=== PATIENT | male | born 1970 | race African-American/Black ===

== ENCOUNTER 2017-10-17 23:24 | Inpatient (IN) | payer MEDICARE ==
[~2017-10-17] VITALS: Ht 172.7 cm; Wt 114.4 kg
[~2017-10-17 23:24] MED LIST: ALBUTEROL SULFATE; ALPR1TAB2 PO; ASA; ASPI-84 PO; AVALIDE; BISM262T13 PO; BPR100T PO; BUPR150T6 PO; DEXL60CA PO; ESZO3TAB30 PO; EZET10TA5 PO; EZET1TAB44 PO; FLUO40CA PO; FLUP10TA PO; FLUPHENAZINE; IRBE1TAB17 PO; LAMICTAL; LAMO100T69 PO; LAMO150T3 PO; METO50TA2 PO; METR500T PO; MNTL10T PO; MTF500T PO; PARO37.512 PO; PAXIL CR; PROP10TA8 PO; PRX10T PO; RANI-10 PO; RANITIDINE; RT-ALBUINH IH; SIMV40TA2 PO; SIMV40TA4 PO; SINGULAIR; TERB250T42 PO; TETR500C2 PO; TMSL.4C PO; TRAM-21 PO; TRIH2TAB2 PO; TRIHEXYPHENIDYL; VARE1TAB17 PO; VYTORIN; WELLBUTRIN XL; ZIPR60CA6 PO; ZLP10T PO; [UNRECOGNIZED DRUG - OTHER]; [UNRECOGNIZED DRUG - OTHER] PO
--- OUTSIDE RECORDS SUMMARY | 2017-10-17 23:29 | XMS REPORT ---
Author LAURA Fuentes Organization [employer] Address Unknown Phone Unavailable Care Team Providers Care Constitutional Law Professor Name Role Phone LAURA GAMA CP Unavailable Allergies No Known Allergies Problems Problem Type Condition ICD-9 Code Onset Dates Condition Status Problem Chronic airway obstruction, not elsewhere classified 496 Active Problem Nondependent tobacco use disorder 305.1 Active Problem Gross hematuria 599.71 Active Problem 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 Problem Shortness of breath 786.05 Active Problem Diabetes mellitus without complication 250.00 Active Problem Hyposmolality and/or hyponatremia 276.1 Active Problem Hematuria, unspecified 599.70 Active Problem Hernia of unspecified site of abdominal cavity without mention of obstruction or gangrene 553.9 Active Problem Generalized anxiety disorder 300.02 Active Problem Pain in joint, ankle and foot 719.47 Active Problem Pain in joint, upper arm 719.42 Active Problem Nocturnal enuresis 788.36 Active Problem Dermatophytosis of nail 110.1 Active Problem Pain in soft tissues of limb 729.5 Active Medications Medication Code System Code Instructions Start Date End Date Status Dosage Xanax [facility] [address]-07 1 MG Orally Three times a day November 08, 2014 take 1/2 tab q am, 1 tab q afternoon, 1/2 tab q evening Results No Known Results Summary Purpose [employer]ClinicalWorks Submission
--- OUTSIDE RECORDS SUMMARY | 2017-10-17 23:29 | XMS REPORT ---
Author Author LAURA GAMA Organization [facility] Address [address] [place] [address] Care Team Providers Care Business Objects Name Role Phone LANETTE LAURA Unavailable PROBLEMS Type Condition ICD9-CM Code EXD94-CO Code Onset Dates Condition Status SNOMED Code Problem Generalized anxiety disorder F41.1 Active 56930314 Problem Major depressive disorder, recurrent, moderate F33.1 Active 330918249 Problem Major depressive disorder, recurrent, unspecified F33.9 Active 86841016 Problem Diabetes type 2, controlled E11.9 Active 28722569 Problem Bipolar affective disorder F31.9 Active 23040500 Problem Paranoid schizophrenia F20.0 Active 46098144 Problem Tardive dyskinesia G24.01 Active 911230789 Problem Non morbid obesity due to excess calories E66.09 Active 092272148 Problem housekeeping lead current use of insulin Z79.4 Active 213529238 Problem Schizoaffective disorder F25.9 Active 54261882 Problem Type 2 diabetes mellitus without complications E11.9 Active 992625536 Problem Hypertension, benign I10 Active 15341670 ALLERGIES No Information SOCIAL HISTORY Never Assessed PLAN OF CARE VITAL SIGNS MEDICATIONS Medication Instructions Dosage Frequency Start Date End Date Duration Status Amlodipine Besylate 5 mg Orally Once a day 1 tablet 24h Jan, 30 day(s) Active RESULTS No Results PROCEDURES No Known procedures IMMUNIZATIONS No Known Immunizations MEDICAL (GENERAL) HISTORY Type Description Date Medical History hypertension Medical History type II diabetes Medical History Arthritis Medical History depression Medical History hyperlipidemia Medical History schizoaffective disorder Medical History anxiety Medical History chronic obstructive pulmonary disease (COPD) Medical History erectile dysfunction Medical History upper gastrointestinal bleed Surgical History arthroscopic knee surgery x2 2003 Surgical History left wrist 2001 Hospitalization History AMS & fever, MRI showed small vessel ischemia, CXR showed multiple rib deformities 09/01/2011 Hospitalization History inpatient psych treatment for SI early
--- OUTSIDE RECORDS SUMMARY | 2017-10-17 23:30 | XMS REPORT ---
Author Author JARED SHOEMAKER Organization [employer] Address Unknown Phone Unavailable Care Team Providers Care Group Tester Name Role Phone JARED SHOEMAKER CP Unavailable Allergies No Known Allergies Problems Problem Type Condition Code Onset Dates Condition Status Problem Hematuria, unspecified 599.70 Active Problem Generalized anxiety disorder 300.02 Active Problem Hyposmolality and/or hyponatremia 276.1 Active Problem Paranoid schizophrenia F20.0 Active Problem Diabetes type 2, controlled E11.9 Active Problem Bipolar affective disorder F31.9 Active Problem Shortness of breath 786.05 Active Problem Hernia of unspecified site of abdominal cavity without mention of obstruction or gangrene 553.9 Active Problem Diabetes mellitus without complication 250.00 Active Problem 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 Problem Dermatophytosis of nail 110.1 Active Problem Pain in joint, ankle and foot 719.47 Active Problem Pain in soft tissues of limb 729.5 Active Problem Chronic airway obstruction, not elsewhere classified 496 Active Problem Pain in joint, upper arm 719.42 Active Problem Gross hematuria 599.71 Active Problem Nocturnal enuresis 788.36 Active Problem Nondependent tobacco use disorder 305.1 Active Medications Medication Code System Code Instructions Start Date End Date Status Dosage Xanax [facility] [address]-64 1 MG Orally 1 tablet in am, 1 tablet in afternoon, 1 /2 tablet at bedtime Jul 07, 2015 as directed Results No Known Results Summary Purpose eClinicalWorks Submission
--- OUTSIDE RECORDS SUMMARY | 2017-10-17 23:30 | XMS REPORT ---
Author Author JARED SHOEMAKER [facility] e[employer] Address Unknown Phone Unavailable Care Team Providers Care Oil Distributor Name Role Phone JARED SHOEMAKER CP Unavailable Allergies No Known Allergies Problems Problem Type Condition Code Onset Dates Condition Status Assessment Schizoaffective disorder F25.9 Active Problem Hernia of unspecified site of abdominal cavity without mention of obstruction or gangrene 553.9 Active Assessment Generalized anxiety disorder F41.1 Active Problem Shortness of breath 786.05 Active Assessment Major depressive disorder, recurrent, unspecified F33.9 Active Problem 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 Problem Diabetes type 2, controlled E11.9 Active Problem Diabetes mellitus without complication 250.00 Active Problem Generalized anxiety disorder F41.1 Active Problem Schizoaffective disorder F25.9 Active Problem Pain in joint, upper arm 719.42 Active Problem Pain in joint, ankle and foot 719.47 Active Problem Major depressive disorder, recurrent, unspecified F33.9 Active Problem Dermatophytosis of nail 110.1 Active Problem Bipolar affective disorder F31.9 Active Problem Paranoid schizophrenia F20.0 Active Problem Type 2 diabetes mellitus without complications E11.9 Active Problem Diabetes type 2, uncontrolled E11.65 Active Problem Chronic airway obstruction, not elsewhere classified 496 Active Problem Gross hematuria 599.71 Active Problem Nocturnal enuresis 788.36 Active Problem Pain in soft tissues of limb 729.5 Active Problem Hyposmolality and/or hyponatremia 276.1 Active Problem Generalized anxiety disorder 300.02 Active Problem Nondependent tobacco use disorder 305.1 Active Problem Hematuria, unspecified 599.70 Active Medications Medication Code System Code Instructions Start Date End Date Status Dosage Benadryl [facility] [address]-98 25 MG Orally every 6 hrs 1 tablet as needed Tylenol [facility] [address]-97 325 MG Orally every 6 hrs 1 tablet as needed Zocor [facility] 17171060515 40 TAKE ONE TABLET BY MOUTH DAILY WITH ZETIA Singulair [facility] 35473279283 10 TAKE ONE TABLET BY MOUTH EVERY EVENING Breo Ellipta [facility] [address]-24 100-25 MCG/INH Inhalation Once a day Mar 1 puff Doxepin HCl [facility] [address]-07 75 MG Orally Once a day Jun 26, 2016 1 capsule at bedtime Xanax [facility] [address]-92 1 MG Orally one tablet in morning one tablet in afternoon and 0.5 tablet at bedtime 1 tablet Trihexyphenidyl HCl [facility] [address]-11 2 MG Orally 2 times a day 1 tablet Ranitidine HCl [facility] [address]-60 150 MG Orally PRN 1 capsule Albuterol Sulfate HFA [facility] [address]-07 108 (90 Base) MCG/ACT Inhalation every 4 hrs 2 puffs as needed Geodon [facility] [address]-98 40 MG Orally once a day May 08, 2016 1 capsule with food Metoprolol Tartrate [facility] 90838719105 50 TAKE ONE TABLET BY MOUTH TWICE A DAY Metformin HCl [facility] [address]-67 1,000 TAKE ONE TABLET BY MOUTH TWICE A DAY WITH MEALS Lantus SoloStar [facility] 97351119113 100 unit/mL INJECT 44 UNITS UNDER THE SKIN ONCE DAILY Lamictal [facility] [address]-27 100 MG Orally Once a day 3 tablets Geodon [facility] [address]-78 80 MG Orally Twice a day Oct 12, 2014 1 capsule with food Zetia [facility] 53276918564 10 TAKE ONE TABLET BY MOUTH DAILY Flomax [facility] 82140391889 0.4 TAKE TWO CAPSULES BY MOUTH DAILY Diovan [facility] 41964676721 320 TAKE ONE TABLET BY MOUTH DAILY Tums [facility] [address]-91 500 MG Orally Four times a day PRN 1 tablet Glucometer [facility] 0 1 2 times a day, with strips and lancets Apr 25, 2016 test blood sugar Prozac [facility] [address]-13 40 MG Orally Once a day Aug 26, 2014 1 capsule in the morning Vital Signs Date/Time: Jun 26, 2016 Cardiac Monitoring Heart Rate 76 bpm Weight 258.0 lbs Height 69 in BMI 38.10 Index Blood Pressure Diastolic 92 mmHg Blood Pressure Systolic 140 mmHg Results No Known Results Summary Purpose eClinicalWorks Submission
--- OUTSIDE RECORDS SUMMARY | 2017-10-17 23:30 | XMS REPORT ---
Author Author JARED SHOEMAKER Organization [employer] Address Unknown Phone Unavailable Care Team Providers Care Wire Weaver Name Role Phone JARED SHOEMAKER CP Unavailable Allergies No Known Allergies Problems Problem Type Condition Code Onset Dates Condition Status Problem Hyposmolality and/or hyponatremia 276.1 Active Problem Hernia of unspecified site of abdominal cavity without mention of obstruction or gangrene 553.9 Active Problem Generalized anxiety disorder 300.02 Active Problem Bipolar affective disorder F31.9 Active Problem Paranoid schizophrenia F20.0 Active Problem Diabetes type 2, uncontrolled E11.65 Active Problem 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 Problem Shortness of breath 786.05 Active Problem Diabetes type 2, controlled E11.9 Active Problem Diabetes mellitus without complication 250.00 Active Problem Pain in joint, ankle and foot 719.47 Active Problem Pain in joint, upper arm 719.42 Active Problem Dermatophytosis of nail 110.1 Active Problem Chronic airway obstruction, not elsewhere classified 496 Active Problem Gross hematuria 599.71 Active Problem Nocturnal enuresis 788.36 Active Problem Nondependent tobacco use disorder 305.1 Active Problem Pain in soft tissues of limb 729.5 Active Problem Hematuria, unspecified 599.70 Active Medications Medication Code System Code Instructions Start Date End Date Status Dosage Xanax [facility] [address]-41 1 MG Orally TAKE ONE TABLET BY MOUTH EVERY MORNING , 1 IN THE AFTERNOON AND 1/2 AT BEDTIME Results No Known Results Summary Purpose eClinicalWorks Submission
--- OUTSIDE RECORDS SUMMARY | 2017-10-17 23:30 | XMS REPORT ---
Author Author JARED SHOEMAKER [facility] e[employer] Address Unknown Phone Unavailable Care Team Providers Care Novelty Printing Machine Operator Name Role Phone JARED SHOEMAKER CP Unavailable Allergies, Adverse Reactions, Alerts Substance Reaction Event Type N.K.D.A. Info Not Available Non Drug Allergy Problems Problem Type Condition Code Onset Dates Condition Status Problem Hematuria, unspecified 599.70 Active Problem Generalized anxiety disorder 300.02 Active Problem Hyposmolality and/or hyponatremia 276.1 Active Problem Paranoid schizophrenia F20.0 Active Assessment Schizoaffective disorder F25.9 Active Problem Diabetes type 2, controlled E11.9 [...] in joint, ankle and foot 719.47 Active Assessment Generalized anxiety disorder F41.1 Active Assessment Major depressive disorder, recurrent, unspecified F33.9 Active Problem Pain in soft tissues of limb 729.5 Active Problem Chronic airway obstruction, not elsewhere classified 496 Active Problem Pain in joint, upper arm 719.42 Active Problem Gross hematuria 599.71 Active Problem Nocturnal enuresis 788.36 Active Problem Nondependent tobacco use disorder 305.1 Active Medications Medication Code System Code Instructions Start Date End Date Status Dosage Prozac [facility] [address]-78 40 MG Orally Once a day Aug 26, 2014 1 capsule in the morning Trihexyphenidyl HCl [facility] [address]-70 2 MG Orally 2 times a day 1 tablet Geodon [facility] [address]-34 80 MG Orally Twice a day Oct 12, 2014 1 capsule with food Xanax [facility] [address]-89 1 MG Orally 1 tablet in am, 1 tablet in afternoon, 1 /2 tablet at bedtime Jul 07, 2015 as directed Doxepin HCl [facility] [address]-12 50 MG Orally Once a day Jul 07, 2015 1 capsule at bedtime Ranitidine HCl [facility] [address]-89 150 MG Orally PRN 1 capsule Zocor [facility] 59275432867 40 TAKE ONE TABLET BY MOUTH DAILY WITH ZETIA Zetia [facility] 58930618746 10 TAKE ONE TABLET BY MOUTH DAILY Ventolin HFA [facility] 14479926333 90 INHALE TWO PUFFS BY MOUTH EVERY 6 HOURS NEEDED FOR COUGH/WHEEZING Tums [facility] [address]-07 500 MG Orally Four times a day PRN 1 tablet Metoprolol Tartrate [facility] 81879574552 50 TAKE ONE TABLET BY MOUTH TWICE A DAY Benadryl [facility] [address]-75 25 MG Orally every 6 hrs 1 tablet as needed Diovan [facility] [address]-71 320 MG Orally Once a day 1 tablet Albuterol Sulfate HFA [facility] [address]-34 108 (90 Base) MCG/ACT Inhalation every 4 hrs 2 puffs as needed Lamictal [facility] [address]-65 100 MG Orally Once a day 3 tablets Victoza [facility] [address]-10 18 MG/3ML Subcutaneous Once a day Jul 03, 2015 1.2mg Singulair [facility] 55752829731 10 TAKE ONE TABLET BY MOUTH EVERY EVENING Tylenol [facility] [address]-19 325 MG Orally every 6 hrs 1 tablet as needed Symbicort [facility] [address]-58 160-4.5 MCG/ACT Inhalation Twice a day Jul 03, 2015 2 puffs OneTouch Ultra Test [facility] 0 Blood Glucose , 2 times a day TEST BLOOD SUGAR Flomax [facility] 72422166895 0.4 TAKE TWO CAPSULES BY MOUTH DAILY Procedures Procedure Coding System Code Date Office Visit, Est Pt., Level 3 CPT-4 76188 Sep 06, 2015 [facility] VISIT ESTABLISHED PATIENT CPT-4 G0467 Sep 06, 2015 Vital Signs Date/Time: Sep 06, 2015 Cardiac Monitoring Heart Rate 92 bpm Weight 245.6 lbs Height 69 in BMI 36.26 Index Blood Pressure Diastolic 74 mmHg Blood Pressure Systolic 120 mmHg Results No Known Results Summary Purpose eClinicalWorks Submission
--- OUTSIDE RECORDS SUMMARY | 2017-10-17 23:30 | XMS REPORT ---
Author Author EDMUND NEWBY [facility] [place] eClinicalWorks Address Unknown Phone Unavailable Care Team Providers Care Investment Specialist Name Role Phone EDMUND NEWBY Unavailable Allergies No Known Allergies Problems Problem [...] joint, ankle and foot 719.47 Active Assessment Paranoid schizophrenia F20.0 Active Assessment Bipolar affective disorder F31.9 Active Problem Pain in soft tissues of limb 729.5 Active Problem Chronic airway obstruction, not elsewhere classified 496 Active Problem Pain in joint, upper arm 719.42 Active Problem Gross hematuria 599.71 Active Problem Nocturnal enuresis 788.36 Active Problem Nondependent tobacco use disorder 305.1 Active Medications Medication Code System Code Instructions Start Date End Date Status Dosage Trihexyphenidyl HCl [facility] [address]-73 2 MG Orally 2 times a day 1 tablet Victoza [facility] [address]-78 18 MG/3ML Subcutaneous Once a day Jul 03, 2015 1.2mg Ventolin HFA [facility] 98690316019 90 INHALE TWO PUFFS BY MOUTH EVERY 6 HOURS NEEDED FOR COUGH/WHEEZING Singulair [facility] 17487238656 10 TAKE ONE TABLET BY MOUTH EVERY EVENING Zocor [facility] 59765951669 40 TAKE ONE TABLET BY MOUTH DAILY WITH ZETIA Benadryl [facility] [address]-53 25 MG Orally every 6 hrs 1 tablet as needed Diovan [facility] [address]-22 320 MG Orally Once a day 1 tablet Lamictal [facility] [address]-59 100 MG Orally Once a day 3 tablets Doxepin HCl [facility] [address]-91 50 MG Orally Once a day Jul 07, 2015 1 capsule at bedtime Flomax [facility] 70299171305 0.4 TAKE TWO CAPSULES BY MOUTH DAILY Geodon [facility] [address]-53 80 MG Orally Twice a day Oct 12, 2014 1 capsule with food Tylenol [facility] [address]-86 325 MG Orally every 6 hrs 1 tablet as needed Albuterol Sulfate HFA [facility] [address]-72 108 (90 Base) MCG/ACT Inhalation every 4 hrs 2 puffs as needed Zetia [facility] 16489708415 10 TAKE ONE TABLET BY MOUTH DAILY Symbicort [facility] [address]-81 160-4.5 MCG/ACT Inhalation Twice a day Jul 03, 2015 2 puffs Xanax [facility] [address]-12 1 MG Orally 1 tablet in am, 1 tablet in afternoon, 1 /2 tablet at bedtime Jul 07, 2015 as directed Tums [facility] [address]-37 500 MG Orally Four times a day PRN 1 tablet Prozac [facility] [address]-78 40 MG Orally Once a day Aug 26, 2014 1 capsule in the morning Metoprolol Tartrate [facility] 14003419859 50 TAKE ONE TABLET BY MOUTH TWICE A DAY OneTouch Ultra Test [facility] 0 Blood Glucose , 2 times a day TEST BLOOD SUGAR Ranitidine HCl [facility] [address]-38 150 MG Orally PRN 1 capsule Procedures Procedure Coding System Code Date Psych diagnostic evaluation, established patient CPT-4 78961 Aug 14, 2015 [facility] VISIT MENTAL HEALTH ESTAB PT CPT-4 G0470 Aug 14, 2015 Results No Known Results Summary Purpose eClinicalWorks Submission
--- OUTSIDE RECORDS SUMMARY | 2017-10-17 23:30 | XMS REPORT ---
Author Author JARED Boone Organization [facility] Address Unknown Care Team Providers Care Staple Cutter Name Role Phone JARED Boone Unavailable PROBLEMS Type Condition ICD9-CM Code JPD25-OG Code Onset Dates Condition Status SNOMED Code Problem Generalized anxiety disorder F41.1 Active 06078815 Problem Major depressive disorder, recurrent, moderate F33.1 Active 666535312 Problem Major depressive disorder, recurrent, unspecified F33.9 Active 75450415 Problem Diabetes type 2, controlled E11.9 Active 65365707 Problem Bipolar affective disorder F31.9 Active 27439104 Problem Paranoid schizophrenia F20.0 Active 17113038 Problem Tardive dyskinesia G24.01 Active 374564712 Problem Non morbid obesity due to excess calories E66.09 Active 184436764 Problem penitentiary current use of insulin Z79.4 Active 049701192 Problem Schizoaffective disorder F25.9 Active 74546466 Problem Type 2 diabetes mellitus without complications E11.9 Active 939502527 Problem Hypertension, benign I10 Active 64837961 ALLERGIES No Known Allergies SOCIAL HISTORY Never Assessed PLAN OF CARE Activity Details Follow Up 3 Months Reason: VITAL SIGNS Height 69 in 2016-10-30 Weight 259.6 lbs 2016-10-30 Heart Rate 68 bpm 2016-10-30 Respiratory Rate 20 2016-10-30 BMI 38.33 kg/m2 2016-10-30 Blood pressure systolic 132 mmHg 2016-10-30 Blood pressure diastolic 93 mmHg 2016-10-30 MEDICATIONS Medication Instructions Dosage Frequency Start Date End Date Duration Status LaMICtal XR 300 MG Orally Once a day 1 tablet 24h Oct, 30 day(s ) Active Clickfine Pen [place] 32 gauge DIRECTED WITH INSULIN PENS 50 Active Geodon 80 MG Orally once a day 2 capsule with food 24h Oct, 30 day(s) Active Doxepin HCl 75 MG Orally Once a day 1 capsule at bedtime 24h Oct, 30 day(s) Active Doxepin HCl 75 TAKE ONE CAPSULE BY MOUTH AT BEDTIME 30 Active Breo Ellipta 100-25 Inhalation Once a day 1 puff 24h 30 Active Diovan 320 Orally Once a day 1 tablet 24h 30 days Active Zetia 10 Orally Once a day 1 tablet 24h 30 days Active Nexium 40 Orally Once a day 1 capsule 24h 30 Active Cetirizine HCl 10 mg Orally Once a day 1 tablet 24h 06 Sep, 2016 Mar, 30 day(s) Active Prozac 40 MG Orally Once a day 1 capsule 24h Oct, 30 day(s) Active Flomax 0.4 Orally Once a day 2 capsules 24h 30 days Active Xanax 1 MG Orally Twice a day and 0.5 tablet at bedtime 1 tablet Oct, 30 days Active Trihexyphenidyl HCl 2 MG Orally two times a day 1 tablet with meals 12h Oct, 30 day(s) Active Metoprolol Tartrate 50 Orally Twice a day 1 tablet with food 12h 30 days Active Geodon 40 MG Orally once a day 1 capsule with food 24h Oct, 30 day(s) Active Metformin HCl 1,000 Orally 2 times a day 1 tablet with meals 12h 30 days Active RESULTS No Results PROCEDURES Procedure Date Ordered Result Body Site [facility] VISIT ESTABLISHED PATIENT October 30, 2016 IMMUNIZATIONS No Known Immunizations MEDICAL (GENERAL) HISTORY Type Description Date Medical History hypertension Medical History type II diabetes Medical History Arthritis Medical History depression Medical History hyperlipidemia Medical History schizoaffective disorder Medical History anxiety Medical History chronic obstructive pulmonary disease (COPD) Medical History erectile dysfunction Medical History upper gastrointestinal bleed Surgical History arthroscopic knee surgery x2 2002 Surgical History left wrist 2001 Hospitalization History AMS & fever, MRI showed small vessel ischemia, CXR showed multiple rib deformities 09/01/2011 Hospitalization History inpatient psych treatment for SI early
--- OUTSIDE RECORDS SUMMARY | 2017-10-17 23:30 | XMS REPORT ---
Author Author JARED SHOEMAKER Organization [employer] Address Unknown Phone Unavailable Care Team Providers Care Asbestos Cloth Inspector Name Role Phone JARED SHOEMAKER CP Unavailable Allergies No Known Allergies Problems Problem Type Condition Code Onset Dates Condition Status Problem Gross hematuria 599.71 Active Problem Hematuria, unspecified 599.70 Active Problem Nondependent tobacco use disorder 305.1 Active Problem Diabetes mellitus without complication 250.00 Active Problem 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 Problem Diabetes type 2, controlled E11.9 Active Problem Generalized anxiety disorder 300.02 Active Problem Hyposmolality and/or hyponatremia 276.1 Active Problem Shortness of breath 786.05 Active Problem Hernia of unspecified site of abdominal cavity without mention of obstruction or gangrene 553.9 Active Problem Pain in joint, upper arm 719.42 Active Problem Nocturnal enuresis 788.36 Active Problem Dermatophytosis of nail 110.1 Active Problem Pain in soft tissues of limb 729.5 Active Problem Pain in joint, ankle and foot 719.47 Active Problem Chronic airway obstruction, not elsewhere classified 496 Active Medications Medication Code System Code Instructions Start Date End Date Status Dosage Trihexyphenidyl HCl [facility] [address]-80 2 MG Orally 2 times a day 1 tablet Lamictal [facility] [address]-05 100 MG Orally Once a day 3 tablets Geodon [facility] [address]-38 80 MG Orally Twice a day Oct 12, 2014 1 capsule with food Prozac [facility] [address]-51 40 MG Orally Once a day Aug 26, 2014 1 capsule in the morning Results No Known Results Summary Purpose eClinicalWorks Submission
--- OUTSIDE RECORDS SUMMARY | 2017-10-17 23:30 | XMS REPORT ---
Author Author LAURA GAMA Organization [employer] Address Unknown Phone Unavailable Care Team Providers Care Counter Intelligence Technician Name Role Phone LAURA GAMA CP Unavailable [...] Instructions Start Date End Date Status Dosage Butch Hayesta [facility] [address]-40 100-25 MCG/INH Inhalation Once a day Mar 1 puff Results No Known Results Summary Purpose eClinicalWorks Submission
--- OUTSIDE RECORDS SUMMARY | 2017-10-17 23:30 | XMS REPORT ---
Author Author LAURA GAMA [facility] Address [address] [place] [address] Care Team Providers Care Telegraphic Instrument Supervisor Name Role Phone LAURA GAMA Unavailable PROBLEMS Type Condition ICD9-CM Code [id number] Code Onset Dates Condition Status SNOMED Code Problem Generalized anxiety disorder F41.1 Active 14492302 Problem Major depressive disorder, recurrent, moderate F33.1 Active 336119788 Problem Major depressive disorder, recurrent, unspecified F33.9 Active 76343482 Problem Diabetes type 2, controlled E11.9 Active 89749913 Problem Bipolar affective disorder F31.9 Active 43381845 Problem Paranoid schizophrenia F20.0 Active 63297731 Problem Tardive dyskinesia G24.01 Active 225265865 Problem Non morbid obesity due to excess calories E66.09 Active 156811284 Problem 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 Active 926404827 Problem Schizoaffective disorder F25.9 Active 94124886 Problem Type 2 diabetes mellitus without complications E11.9 Active 172300493 Problem Hypertension, benign I10 Active 09913066 ALLERGIES No Known Allergies SOCIAL HISTORY Never Assessed PLAN OF CARE Activity Details Follow Up 4 Weeks Reason:htn VITAL SIGNS Height 69 in 2017-01-24 Weight 262.4 lbs 2017-01-24 Temperature 98.0 degrees Fahrenheit 2017-01-24 Heart Rate 68 bpm 2017-01-24 Respiratory Rate 18 2017-01-24 BMI 38.75 kg/m2 2017-01-24 Blood pressure systolic 133 mmHg 2017-01-24 Blood pressure diastolic 100 mmHg 2017-01-24 MEDICATIONS Medication Instructions Dosage Frequency Start Date End Date Duration Status Prozac 40 MG Orally Once a day 1 capsule 24h Oct, 30 day(s) Active Zetia 10 TAKE ONE TABLET BY MOUTH DAILY 30 Active Doxepin HCl 75 MG Orally Once a day 1 capsule at bedtime 24h Oct, 30 day(s) Active Lantus SoloStar 100 unit/mL Subcutaneous 2 times a day INJECT 36 Units in the am and 50 Units in pm 12h 34 Active Geodon 40 TAKE ONE CAPSULE BY MOUTH DAILY WITH FOOD 30 Active LaMICtal XR 300 MG Orally Once a day 1 tablet 24h Oct, 30 day(s ) Active Metoprolol Tartrate 50 TAKE ONE TABLET BY MOUTH TWICE A DAY WITH FOOD 30 Active Clickfine Pen [place] 32 gauge USE WITH INSULIN PENS 50 Active Nexium 40 TAKE ONE CAPSULE BY MOUTH DAILY 30 Active Trihexyphenidyl HCl 2 MG Orally two times a day 1 tablet with meals 12h Oct, 30 day(s) Active Geodon 80 MG Orally once a day 2 capsule with food 24h Oct, 30 day(s) Active Xanax 1 MG Orally Twice a day and 0.5 tablet at bedtime 1 tablet Oct, 30 days Active Flomax 0.4 TAKE TWO CAPSULES BY MOUTH DAILY 30 Active Breo Ellipta 100-25 INHALE ONE DOSE BY MOUTH DAILY 30 Active Geodon 40 MG Orally once a day 1 capsule with food 24h Oct, 30 day(s) Active Diovan 320 mg TAKE ONE TABLET BY MOUTH DAILY 90 days Active Amlodipine Besylate 5 mg Orally Once a day 1 tablet 24h Jan, 30 day(s) Active Metformin HCl 1,000 TAKE ONE TABLET BY MOUTH TWICE A DAY WITH MEALS 30 Active Cetirizine HCl 10 mg Orally Once a day 1 tablet 24h Sep, Mar, 30 day(s) Active RESULTS No Results PROCEDURES Procedure Date Ordered Result Body Site [facility] VISIT ESTABLISHED PATIENT January 24, 2017 MARC, ROUTINE* January 24, 2017 [facility] January [facility], 2017 IMMUNIZATIONS No Known Immunizations MEDICAL (GENERAL) HISTORY [...]
--- OUTSIDE RECORDS SUMMARY | 2017-10-17 23:31 | XMS REPORT ---
Author Author LAURA GAMA Organization [employer] Address Unknown Phone Unavailable Care Team Providers Care Admitting Supervisor Name Role Phone LAURA GAMA CP Unavailable [...] of obstruction or gangrene 553.9 Active Assessment Sinusitis chronic, frontal J32.1 Active Problem Pain in joint, upper arm 719.42 Active Problem Nocturnal enuresis 788.36 Active Problem Dermatophytosis of nail 110.1 Active Problem Pain in soft tissues of limb 729.5 Active Problem Pain in joint, ankle and foot 719.47 Active Problem Chronic airway obstruction, not elsewhere classified 496 Active Medications Medication Code System Code Instructions Start Date End Date Status Dosage Victoza [facility] [address]-09 18 MG/3ML Subcutaneous Once a day Jul 03, 2015 1.2mg Symbicort [facility] [address]-91 160-4.5 MCG/ACT Inhalation Twice a day Jul 03, 2015 2 puffs Results No Known Results Summary Purpose eClinicalWorks Submission
--- OUTSIDE RECORDS SUMMARY | 2017-10-17 23:31 | XMS REPORT ---
Author Author LAURA GAMA [facility] Address [address] [place] [address] Care Team Providers Care Cement Car Dumper Name Role Phone LAURA GAMA Unavailable PROBLEMS Type Condition ICD9-CM Code [id number] Code Onset Dates Condition Status SNOMED Code Problem Paranoid schizophrenia F20.0 Active 14854557 Problem Major depressive disorder, recurrent, unspecified F33.9 Active 76744630 Problem Generalized anxiety disorder F41.1 Active 50151951 Problem Diabetes type 2, controlled E11.9 Active 30829180 Problem Bipolar affective disorder F31.9 Active 75314185 Problem Non morbid obesity due to excess calories E66.09 Active 891265344 Problem Type 2 diabetes mellitus without complications E11.9 Active 884362348 Problem Schizoaffective disorder F25.9 Active 39680353 Problem Major depressive disorder, recurrent, moderate F33.1 Active 877513219 Problem Hypertension, benign I10 Active 63530658 Problem [facility] current use of insulin Z79.4 Active 730518609 ALLERGIES No Information SOCIAL HISTORY Never Assessed PLAN OF CARE VITAL SIGNS Height 69 in 2016-09-30 Weight 264.4 lbs 2016-09-30 Temperature 97.6 degrees Fahrenheit 2016-09-30 Heart Rate 76 bpm 2016-09-30 Respiratory Rate 20 2016-09-30 BMI 39.04 kg/m2 2016-09-30 Blood pressure systolic 122 mmHg 2016-09-30 Blood pressure diastolic 86 mmHg 2016-09-30 MEDICATIONS Medication Instructions Dosage Frequency Start Date End Date Duration Status Metoprolol Tartrate 50 Orally Twice a day 1 tablet with food 12h 30 days Active Zetia 10 Orally Once a day 1 tablet 24h 30 days Active Breo Ellipta 100-25 Inhalation Once a day 1 puff 24h 30 Active Cetirizine HCl 10 mg Orally Once a day 1 tablet 24h Sep, Mar, 30 day(s) Active Flomax 0.4 Orally Once a day 2 capsules 24h 30 days Active Metformin HCl 1,000 Orally 2 times a day 1 tablet with meals 12h 30 days Active Diovan 320 Orally Once a day 1 tablet 24h 30 days Active RESULTS Name Result Date Reference Range A1C (IN HOUSE) 2016-09-30 A1C IN HOUSE 8.0 4.3 - 5.6 % Previous A1c 7.3 Lot [id number] Exp date 06/2018 PROCEDURES Procedure Date Ordered Result Body Site GLYCATED HEMOGLOBIN TEST Sep 30, 2016 [facility] VISIT ESTABLISHED PATIENT Sep 30, 2016 IMMUNIZATIONS No Known Immunizations MEDICAL [...]
--- OUTSIDE RECORDS SUMMARY | 2017-10-17 23:31 | XMS REPORT ---
Author Author LAURA GAMA [facility] Address [address] [place] [address] Care Team Providers Care Bed And Breakfast Innkeeper Name Role Phone LANETTE LAURA Unavailable PROBLEMS Type Condition ICD9-CM Code [id number] Code Onset Dates Condition Status SNOMED Code Problem Paranoid schizophrenia F20.0 Active 16127713 Problem Major depressive disorder, recurrent, unspecified F33.9 Active 40868303 Problem Generalized anxiety disorder F41.1 Active 59065932 Problem Diabetes type 2, controlled E11.9 Active 38099811 Problem Bipolar affective disorder F31.9 Active 71536666 Problem Non morbid obesity due to excess calories E66.09 Active 123139534 Problem Type 2 diabetes mellitus without complications E11.9 Active 671189705 Problem Schizoaffective disorder F25.9 Active 44536025 Problem Major depressive disorder, recurrent, moderate F33.1 Active 908505662 Problem Hypertension, benign I10 Active 45114536 Problem detention current use of insulin Z79.4 Active 105926980 ALLERGIES Substance Reaction Event Type Date Status N.K.D.A. Unknown Non Drug Allergy Aug, Unknown SOCIAL HISTORY No smoking Hx information available PLAN OF CARE Activity Details Follow Up 4 Weeks Reason:dm2 VITAL SIGNS Height 69 in 2016-08-29 Weight 262 lbs 2016-08-29 Temperature 98.3 degrees Fahrenheit 2016-08-29 Heart Rate 80 bpm 2016-08-29 Respiratory Rate 18 2016-08-29 BMI 38.69 kg/m2 2016-08-29 Blood pressure systolic 102 mmHg 2016-08-29 Blood pressure diastolic 80 mmHg 2016-08-29 MEDICATIONS Medication Instructions Dosage Frequency Start Date End Date Duration Status Trihexyphenidyl HCl 2 MG Orally 2 times a day 1 tablet 12h 30 days Active Zocor 40 TAKE ONE TABLET BY MOUTH DAILY WITH ZETIA 30 Active Trihexyphenidyl HCl 2 TAKE ONE TABLET BY MOUTH TWICE A DAY 30 Active Geodon 80 MG Orally Twice a day 1 capsule with food 12h 18 Sep, 2014 30 days Active Benadryl 25 MG Orally every 6 hrs 1 tablet as needed 6h Active Lamictal 100 MG Orally Once a day 3 tablets 24h 30 days Active Diovan 320 TAKE ONE TABLET BY MOUTH DAILY 30 Active Singulair 10 TAKE ONE TABLET BY MOUTH EVERY EVENING 30 Active Glucometer 1 test blood sugar Apr, Active Zetia 10 TAKE ONE TABLET BY MOUTH DAILY 30 Active Tylenol 325 MG Orally every 6 hrs 1 tablet as needed 6h Active Lantus SoloStar 100 unit/mL INJECT 44 UNITS UNDER THE SKIN ONCE DAILY 34 Active Breo Ellipta 100-25 Inhalation Once a day 1 puff 24h 30 Active Geodon 40 MG Orally once a day 1 capsule with food 24h Apr, 30 days Active Xanax 1 MG Orally one tablet in morning one tablet in afternoon and 0.5 tablet at bedtime 1 tablet 30 days Active Breo Ellipta 100-25 MCG/INH Inhalation Once a day 1 puff 24h Mar, Active Nexium 40 mg Orally Once a day 1 capsule 24h Jul, 30 day(s) Active Prozac 40 MG Orally Once a day 1 capsule in the morning 24h Aug, 30 days Active Doxepin HCl 75 MG Orally Once a day 1 capsule at bedtime 24h Jun, 30 day(s) Active Metoprolol Tartrate 50 TAKE ONE TABLET BY MOUTH TWICE A DAY 30 Active Flomax 0.4 TAKE TWO CAPSULES BY MOUTH DAILY 30 Active Metformin HCl 1,000 TAKE ONE TABLET BY MOUTH TWICE A DAY WITH MEALS 30 Active Albuterol Sulfate HFA 108 (90 Base) MCG/ACT Inhalation every 4 hrs 2 puffs as needed 4h Active Fluticasone Propionate 50 MCG/ACT Nasally Once a day 1 spray in each nostril 24h Jul, Active RESULTS Name Result Date Reference Range MICROALBUMIN, URINE (IN HOUSE) 2016-08-29 MICROALBUMIN Abnormal Lot # [id number] Exp date 06/2017 Clarity clear Color yellow ALB 150mg/L CRE 300mg/dl A:C (IN HOUSE) 30-300mg/g Control + Control Lot # Exp date PROCEDURES Procedure Date Ordered Related Diagnosis Body Site MICROALBUMIN, SEMIQUANT Aug 29, 2016 [facility] VISIT ESTABLISHED PATIENT Aug 29, 2016 Office Visit, Est Pt., Level 3 Aug 29, 2016 IMMUNIZATIONS No Known Immunizations
--- OUTSIDE RECORDS SUMMARY | 2017-10-17 23:31 | XMS REPORT ---
Author LAURA Fuentes Organization eClinicalWorks Address Unknown Phone Unavailable Care Team Providers Care Torch Straightener And Heater Name Role Phone LAURA GAMA CP Unavailable Allergies, Adverse Reactions, Alerts Substance Reaction Event Type N.K.D.A. Info Not Available Non Drug Allergy Problems Problem Type Condition Code Onset Dates Condition Status Problem Generalized anxiety disorder 300.02 Active Problem Shortness of breath 786.05 Active Problem Hernia of unspecified site of abdominal cavity without mention of obstruction or gangrene 553.9 Active Problem Diabetes type 2, uncontrolled E11.65 Active Assessment Type 2 diabetes mellitus without complications E11.9 Active Problem Bipolar affective disorder F31.9 Active Assessment termite helper current use of insulin Z79.4 Active Assessment Onychomycosis B35.1 Active Problem Type 2 diabetes mellitus without complications E11.9 Active Problem Diabetes mellitus without complication 250.00 Active Problem 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 Problem Paranoid schizophrenia F20.0 Active Problem Diabetes type 2, controlled E11.9 Active Problem Pain in joint, upper arm 719.42 Active Problem Nocturnal enuresis 788.36 Active Problem Dermatophytosis of nail 110.1 Active Problem Pain in joint, ankle and foot 719.47 Active Problem Gross hematuria 599.71 Active Problem Nondependent tobacco use disorder 305.1 Active Problem Pain in soft tissues of limb 729.5 Active Problem Hematuria, unspecified 599.70 Active Assessment Nail hypertrophy L60.2 Active Problem Chronic airway obstruction, not elsewhere classified 496 Active Problem Hyposmolality and/or hyponatremia 276.1 Active Medications Medication Code System Code Instructions Start Date End Date Status Dosage Singulair [facility] 51994675726 10 TAKE ONE TABLET BY MOUTH EVERY EVENING Albuterol Sulfate HFA [facility] [address]-26 108 (90 Base) MCG/ACT Inhalation every 4 hrs 2 puffs as needed Ranitidine HCl [facility] [address]-64 150 MG Orally PRN 1 capsule Trihexyphenidyl HCl [facility] [address]-11 2 MG Orally 2 times a day 1 tablet Diovan [facility] 17704094372 320 TAKE ONE TABLET BY MOUTH DAILY Metoprolol Tartrate [facility] 93741786732 50 TAKE ONE TABLET BY MOUTH TWICE A DAY Tums [facility] [address]-99 500 MG Orally Four times a day PRN 1 tablet Glucometer [facility] 0 1 2 times a day, with strips and lancets Apr 25, 2016 test blood sugar Geodon [facility] [address]-75 80 MG Orally Twice a day Oct 12, 2014 1 capsule with food Symbicort [facility] 41147202029 160-4.5 INHALE TWO PUFFS BY MOUTH TWICE A DAY Flomax [facility] 66269832307 0.4 TAKE TWO CAPSULES BY MOUTH DAILY Breo Ellipta [facility] [address]-47 100-25 MCG/INH Inhalation Once a day Mar 1 puff Lantus SoloStar [facility] 89015348964 100 unit/mL Subcutaneous Once a day 44 units Tylenol [facility] [address]-97 325 MG Orally every 6 hrs 1 tablet as needed Benadryl [facility] [address]-74 25 MG Orally every 6 hrs 1 tablet as needed Xanax [facility] [address]-46 1 MG Orally TAKE ONE TABLET BY MOUTH EVERY MORNING , 1 IN THE AFTERNOON AND 1/2 AT BEDTIME Metformin HCl [facility] 72223341529 1,000 Orally Twice a day, pc 1 tablet with meals Symbicort [facility] [address]-44 160-4.5 MCG/ACT Inhalation Twice a day Jul 03, 2015 2 puffs Ventolin HFA [facility] 59186198765 90 INHALE TWO PUFFS BY MOUTH EVERY 6 HOURS NEEDED FOR COUGH/WHEEZING Victoza [facility] [address]-48 18 MG/3ML Subcutaneous Once a day Jul 03, 2015 1.2mg Prozac [facility] [address]-76 40 MG Orally Once a day Aug 26, 2014 1 capsule in the morning Zocor [facility] 25679434624 40 TAKE ONE TABLET BY MOUTH DAILY WITH ZETIA Lamictal [facility] [address]-14 100 MG Orally Once a day 3 tablets Doxepin HCl [facility] [address]-23 50 MG Orally Once a day Jul 07, 2015 1 capsule at bedtime Zetia [facility] 59547957305 10 TAKE ONE TABLET BY MOUTH DAILY Procedures Procedure Coding System Code Date Office Visit, Est Pt., Level 3 CPT-4 12387 Apr 25, 2016 [facility] VISIT ESTABLISHED PATIENT CPT-4 G0467 Apr 25, 2016 Vital Signs Date/Time: Apr 25, 2016 Cardiac Monitoring Heart Rate 72 bpm Weight 258.3 lbs Height 69 in BMI 38.14 Index Blood Pressure Diastolic 90 mmHg Blood Pressure Systolic 142 mmHg Results No Known Results Summary Purpose eClinicalWorks Submission
--- OUTSIDE RECORDS SUMMARY | 2017-10-17 23:31 | XMS REPORT ---
Author Author JARED SHOEMAKER [facility] eClinicalWorks Address Unknown Phone Unavailable Care Team Providers Care Critical Care Clinical Nurse Specialist Name Role Phone JARED SHOEMAKER CP Unavailable [...] Major depressive disorder, recurrent, unspecified F33.9 Active Assessment Schizoaffective disorder F25.9 Active Problem Pain in joint, upper arm 719.42 Active Problem Nocturnal enuresis 788.36 Active Problem Dermatophytosis of nail 110.1 Active Problem Pain in soft tissues of limb 729.5 Active Problem Pain in joint, ankle and foot 719.47 Active Problem Chronic airway obstruction, not elsewhere classified 496 Active Medications Medication Code System Code Instructions Start Date End Date Status Dosage Lamictal [facility] [address]-64 100 MG Orally Once a day 3 tablets Geodon [facility] [address]-07 80 MG Orally Twice a day Oct 12, 2014 1 capsule with food Flomax [facility] 93929964305 0.4 TAKE TWO CAPSULES BY MOUTH DAILY Amoxicillin [facility] [address]-70 500 MG Orally 3 times a day Jul 03, 2015 Jul 17, 2015 1 tablet Victoza [facility] [address]-48 18 MG/3ML Subcutaneous Once a day Jul 03, 2015 Aug 02, 2015 0.2 ml Xanax [facility] [address]-56 1 MG Orally 1 tablet in am, 1 tablet in afternoon, 1 /2 tablet at bedtime Jul 07, 2015 as directed Metoprolol Tartrate [facility] 30065958543 50 TAKE ONE TABLET BY MOUTH TWICE A DAY OneTouch Ultra Test [facility] 56007992669 TEST BLOOD SUGAR DAILY Symbicort [facility] [address]-84 160-4.5 MCG/ACT Inhalation Twice a day Jul 03, 2015 2 puffs Zocor [facility] 66097441801 40 TAKE ONE TABLET BY MOUTH DAILY WITH ZETIA Singulair [facility] 33835548005 10 TAKE ONE TABLET BY MOUTH EVERY EVENING Diovan [facility] [address]-71 320 MG Orally Once a day 1 tablet Albuterol Sulfate HFA [facility] [address]-85 108 (90 Base) MCG/ACT Inhalation every 4 hrs 2 puffs as needed Prozac [facility] [address]-57 40 MG Orally Once a day Aug 26, 2014 1 capsule in the morning Xanax [facility] [address]-01 1 MG Orally Three times a day November 08, 2014 take 1/2 tab q am, 1 tab q afternoon, 1/2 tab q evening Doxepin HCl [facility] [address]-25 25 MG Orally Once a day may repeat if needed Jun 09, 2015 as directed Ranitidine HCl [facility] [address]-94 150 MG Orally PRN 1 capsule Doxepin HCl [facility] [address]-10 50 MG Orally Once a day Jul 07, 2015 1 capsule at bedtime Simvastatin [facility] [address]-51 40 MG Orally Once a day Take with Zetia 10 mg Sep 23, 2014 1 tablet Trihexyphenidyl HCl [facility] [address]-30 2 MG Orally 2 times a day 1 tablet Zetia [facility] 56334008980 10 TAKE ONE TABLET BY MOUTH DAILY Tums [facility] [address]-41 500 MG Orally Four times a day PRN 1 tablet Procedures Procedure Coding System Code Date Office Visit, Aisha Pt., Level 3 CPT-4 48581 Jul 07, 2015 [facility] VISIT ESTABLISHED PATIENT CPT-4 G0467 Jul 07, 2015 Vital Signs Date/Time: Jul 07, 2015 Cardiac Monitoring Heart Rate 80 bpm Weight 246 lbs Height 69 in BMI 36.32 Index Blood Pressure Diastolic 72 mmHg Blood Pressure Systolic 112 mmHg Results No Known Results Summary Purpose eClinicalWorks Submission
--- OUTSIDE RECORDS SUMMARY | 2017-10-17 23:31 | XMS REPORT ---
Author Author LAURA GAMA Organization [facility] Address [address] [place] [address] Care Team Providers Care Manager Truck Name Role Phone LANETTE LAURA Unavailable PROBLEMS Type Condition ICD9-CM Code [id number] Code Onset Dates Condition Status SNOMED Code Problem Generalized anxiety disorder F41.1 Active 70061983 Problem Major depressive disorder, recurrent, moderate F33.1 Active 950059520 Problem Major depressive disorder, recurrent, unspecified F33.9 Active 55987785 Problem Diabetes type 2, controlled E11.9 Active 06866656 Problem Bipolar affective disorder F31.9 Active 73298315 Problem Paranoid schizophrenia F20.0 Active 54699474 Problem Tardive dyskinesia G24.01 Active 815397405 Problem Non morbid obesity due to excess calories E66.09 Active 045733305 Problem terminal operator current use of insulin Z79.4 Active 369172326 Problem Schizoaffective disorder F25.9 Active 70700780 Problem Type 2 diabetes mellitus without complications E11.9 Active 116395678 Problem Hypertension, benign I10 Active 05911515 ALLERGIES No Known Allergies SOCIAL HISTORY Never Assessed PLAN OF CARE Activity Details Follow Up 3 Months Reason:dm2 3 mo. check up. VITAL SIGNS Height 69 in 2016-11-04 Weight 266 lbs 2016-11-04 Temperature 98.1 degrees Fahrenheit 2016-11-04 Heart Rate 78 bpm 2016-11-04 Respiratory Rate 18 2016-11-04 BMI 39.28 kg/m2 2016-11-04 Blood pressure systolic 146 mmHg 2016-11-04 Blood pressure diastolic 96 mmHg 2016-11-04 MEDICATIONS Medication Instructions Dosage Frequency Start Date End Date Duration Status Geodon 80 MG Orally once a day 2 capsule with food 24h Oct, 30 day(s) Active Clickfine Pen [place] 32 gauge DIRECTED WITH INSULIN PENS 50 Active Metformin HCl 1,000 Orally 2 times a day 1 tablet with meals 12h 30 days Active Prozac 40 MG Orally Once a day 1 capsule 24h Oct, 30 day(s) Active Xanax 1 MG Orally Twice a day and 0.5 tablet at bedtime 1 tablet Oct, 30 days Active Metoprolol Tartrate 50 Orally Twice a day 1 tablet with food 12h 30 days Active Cetirizine HCl 10 mg Orally Once a day 1 tablet 24h 06 Sep, 2016 Mar, 30 day(s) Active Flomax 0.4 Orally Once a day 2 capsules 24h 30 days Active Trihexyphenidyl HCl 2 MG Orally two times a day 1 tablet with meals 12h Oct, 30 day(s) Active LaMICtal XR 300 MG Orally Once a day 1 tablet 24h Oct, 30 day(s ) Active Nexium 40 Orally Once a day 1 capsule 24h 30 Active Geodon 40 MG Orally once a day 1 capsule with food 24h Oct, 30 day(s) Active Diovan 320 Orally Once a day 1 tablet 24h 30 days Active Doxepin HCl 75 MG Orally Once a day 1 capsule at bedtime 24h Oct, 30 day(s) Active Breo Ellipta 100-25 Inhalation Once a day 1 puff 24h 30 Active Zetia 10 Orally Once a day 1 tablet 24h 30 days Active RESULTS No Results PROCEDURES Procedure Date Ordered Result Body Site [facility] VISIT ESTABLISHED PATIENT November 04, 2016 IMMUNIZATIONS No Known Immunizations MEDICAL (GENERAL) [...]
--- OUTSIDE RECORDS SUMMARY | 2017-10-17 23:31 | XMS REPORT ---
Author Author LAURA GAMA Organization [facility] Address [address] [place] [address] Care Team Providers Care Entertainment Reporter Name Role Phone LAURA GAMA Unavailable PROBLEMS Type Condition ICD9-CM Code [id number] Code Onset Dates Condition Status SNOMED Code Problem Generalized anxiety disorder F41.1 Active 46306575 Problem Major depressive disorder, recurrent, moderate F33.1 Active 369256212 Problem Major depressive disorder, recurrent, unspecified F33.9 Active 29286677 Problem Diabetes type 2, controlled E11.9 Active 29174476 Problem Bipolar affective disorder F31.9 Active 11444910 Problem Paranoid schizophrenia F20.0 Active 68856973 Problem Tardive dyskinesia G24.01 Active 864454420 Problem Non morbid obesity due to excess calories E66.09 Active 970557406 Problem retirement current use of insulin Z79.4 Active 970152819 Problem Schizoaffective disorder F25.9 Active 16585047 Problem Type 2 diabetes mellitus without complications E11.9 Active 529226174 Problem Hypertension, benign I10 Active 26419282 ALLERGIES No Information SOCIAL HISTORY Never Assessed PLAN OF CARE VITAL SIGNS MEDICATIONS Medication Instructions Dosage Frequency Start Date End Date Duration Status Diovan 320 mg TAKE ONE TABLET BY MOUTH DAILY 90 days Active RESULTS No Results PROCEDURES No Known [...]
--- OUTSIDE RECORDS SUMMARY | 2017-10-17 23:31 | XMS REPORT ---
Author Author JARED SHOEMAKER Organization [employer] Address Unknown Phone Unavailable Care Team Providers Care Movement Education Specialist Name Role Phone JARED SHOEMAKER CP Unavailable Allergies No Known Allergies Problems Problem Type Condition Code Onset Dates Condition Status Problem Chronic [...] soft tissues of limb 729.5 Active Medications No Known Medications Results No Known Results Summary Purpose [employer] Submission
--- OUTSIDE RECORDS SUMMARY | 2017-10-17 23:32 | XMS REPORT ---
Author Author LAURA GAMA [facility] Address [address] [place] [address] Care Team Providers Care International Accounting Manager Name Role Phone LAURA GAMA Unavailable PROBLEMS Type Condition ICD9-CM Code [id number] Code Onset Dates Condition Status SNOMED Code Problem Paranoid schizophrenia F20.0 Active 69178437 Problem Major depressive disorder, recurrent, unspecified F33.9 Active 06925449 Problem Generalized anxiety disorder F41.1 Active 79133065 Problem Diabetes type 2, controlled E11.9 Active 63501940 Problem Bipolar affective disorder F31.9 Active 96551639 Problem Non morbid obesity due to excess calories E66.09 Active 494783374 Problem Type 2 diabetes mellitus without complications E11.9 Active 412228926 Problem Schizoaffective disorder F25.9 Active 25762916 Problem Major depressive disorder, recurrent, moderate F33.1 Active 259680974 Problem Hypertension, benign I10 Active 33727936 Problem [facility] current use of insulin Z79.4 Active 319373015 ALLERGIES Unknown Allergies SOCIAL HISTORY No smoking Hx information available PLAN OF CARE VITAL SIGNS MEDICATIONS Unknown Medications RESULTS No Results PROCEDURES No Known procedures IMMUNIZATIONS No Known Immunizations
--- OUTSIDE RECORDS SUMMARY | 2017-10-17 23:32 | XMS REPORT ---
Author Author JARED SHOEMAKER Organization [employer] Address Unknown Phone Unavailable Care Team Providers Care Cage Manager Name Role Phone JARED SHOEMAKER CP Unavailable [...] Start Date End Date Status Dosage Xanax [facility] [address]-47 1 MG Orally 1 tablet in am, 1 tablet in afternoon, 1 /2 tablet at bedtime Jul 07, 2015 as directed Results No Known Results Summary Purpose [employer] Submission
--- OUTSIDE RECORDS SUMMARY | 2017-10-17 23:32 | XMS REPORT ---
Author LAURA Fuentes Organization [employer] Address Unknown Phone Unavailable Care Team Providers Care Inspector Final Assembly Conveyor Line Name Role Phone LAURA GAMA CP Unavailable Allergies, Adverse Reactions, Alerts Substance Reaction Event Type N.K.D.A. 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 Problem Diabetes type 2, controlled E11.9 Active Problem Diabetes mellitus without complication 250.00 Active Problem Generalized anxiety disorder F41.1 Active Problem Pain in joint, upper arm 719.42 Active Problem Schizoaffective disorder F25.9 Active Problem Pain in joint, ankle and foot 719.47 Active Problem Dermatophytosis of nail 110.1 Active Problem Major depressive disorder, recurrent, unspecified F33.9 Active Problem Bipolar affective disorder F31.9 Active [...] Nondependent tobacco use disorder 305.1 Active Problem Hernia of unspecified site of abdominal cavity without mention of obstruction or gangrene 553.9 Active Assessment Diabetes type 2, controlled E11.9 Active Problem Hematuria, unspecified 599.70 Active Problem Shortness of breath 786.05 Active Medications Medication Code System Code Instructions Start Date End Date Status Dosage Breo Ellipta [facility] [address]-04 100-25 MCG/INH Inhalation Once a day Mar 1 puff Glucometer [facility] 0 1 2 times a day, with strips and lancets Apr 25, 2016 test blood sugar Diovan [facility] 76347094866 320 TAKE ONE TABLET BY MOUTH DAILY Prozac [facility] [address]-66 40 MG Orally Once a day Aug 26, 2014 1 capsule in the morning Doxepin HCl [facility] [address]-07 75 MG Orally Once a day Jun 26, 2016 1 capsule at bedtime Tums [facility] [address]-81 500 MG Orally Four times a day PRN 1 tablet Zocor [facility] 81173317389 40 TAKE ONE TABLET BY MOUTH DAILY WITH ZETIA Metformin HCl [facility] [address]-53 1,000 TAKE ONE TABLET BY MOUTH TWICE A DAY WITH MEALS Lamictal [facility] [address]-47 100 MG Orally Once a day 3 tablets Zetia [facility] 56244485005 10 TAKE ONE TABLET BY MOUTH DAILY Geodon [facility] [address]-68 40 MG Orally once a day May 08, 2016 1 capsule with food Albuterol Sulfate HFA [facility] [address]-47 108 (90 Base) MCG/ACT Inhalation every 4 hrs 2 puffs as needed Flomax [facility] 88136254889 0.4 TAKE TWO CAPSULES BY MOUTH DAILY Benadryl [facility] [address]-21 25 MG Orally every 6 hrs 1 tablet as needed Tylenol [facility] [address]-42 325 MG Orally every 6 hrs 1 tablet as needed Metoprolol Tartrate [facility] 17157722659 50 TAKE ONE TABLET BY MOUTH TWICE A DAY Geodon [facility] [address]-80 80 MG Orally Twice a day Oct 12, 2014 1 capsule with food Trihexyphenidyl HCl [facility] [address]-47 2 MG Orally 2 times a day 1 tablet Singulair [facility] 92341841388 10 TAKE ONE TABLET BY MOUTH EVERY EVENING Ranitidine HCl [facility] [address]-88 150 MG Orally PRN 1 capsule Lantus SoloStar [facility] 95130264379 100 unit/mL INJECT 44 UNITS UNDER THE SKIN ONCE DAILY Xanax [facility] [address]-78 1 MG Orally one tablet in morning one tablet in afternoon and 0.5 tablet at bedtime 1 tablet Procedures Procedure Coding System Code Date [facility] VISIT ESTABLISHED PATIENT CPT-4 G0467 Jun 28, 2016 Office Visit, Est Pt., Level 3 CPT-4 80640 Jun 28, 2016 GLYCATED HEMOGLOBIN TEST CPT-4 08954 Jun 28, 2016 Vital Signs Date/Time: Jun 28, 2016 Cardiac Monitoring Heart Rate 80 bpm Weight 255.5 lbs Height 69 in BMI 37.73 Index Blood Pressure Diastolic 76 mmHg Blood Pressure Systolic 112 mmHg Results Name Result Date Reference Range Unit Abnormality Flag A1C (IN HOUSE) ----A1C IN HOUSE 7.3 [id number] 4.3 - 5.6 % ----Previous A1c 8.0 20160628 ----Lot [id number] ----Exp date [id number] Summary Purpose [employer] Submission
--- OUTSIDE RECORDS SUMMARY | 2017-10-17 23:32 | XMS REPORT ---
Author Author JARED SHOEMAKER Organization [employer] Address Unknown Phone Unavailable Care Team Providers Care Maintenance Supervisor Mechanical Name Role Phone JARED SHOEMAKER CP Unavailable [...] Active Problem Hematuria, unspecified 599.70 Active Medications No Known Medications Results No Known Results Summary Purpose [employer] Submission
--- OUTSIDE RECORDS SUMMARY | 2017-10-17 23:32 | XMS REPORT ---
Author Author LAURA GAMA Organization [employer] Address Unknown Phone Unavailable Care Team Providers Care Lemon Picker Name Role Phone LAURA GAMA CP Unavailable [...] Nondependent tobacco use disorder 305.1 Active Medications No Known Medications Results No Known Results Summary Purpose [employer] Submission
--- OUTSIDE RECORDS SUMMARY | 2017-10-17 23:32 | XMS REPORT ---
Author Author LAURA GAMA Organization [facility] Address [address] [place] [address] Care Team Providers Care Team Lead Name Role Phone LAURA GAMA Unavailable PROBLEMS Type Condition ICD9-CM Code [id number] Code Onset Dates Condition Status SNOMED Code Problem Paranoid schizophrenia F20.0 Active 01385595 Problem Major depressive disorder, recurrent, unspecified F33.9 Active 91244657 Problem Generalized anxiety disorder F41.1 Active 49122535 Problem Diabetes type 2, controlled E11.9 Active 03540366 Problem Bipolar affective disorder F31.9 Active 58605716 Problem Non morbid obesity due to excess calories E66.09 Active 102994199 Problem Type 2 diabetes mellitus without complications E11.9 Active 297398585 Problem Schizoaffective disorder F25.9 Active 43498589 Problem Major depressive disorder, recurrent, moderate F33.1 Active 993852999 Problem Hypertension, benign I10 Active 96023524 Problem [facility] current use of insulin Z79.4 Active 662194279 ALLERGIES Unknown Allergies SOCIAL HISTORY No smoking Hx information available PLAN OF CARE VITAL SIGNS MEDICATIONS Medication Instructions Dosage Frequency Start Date End Date Duration Status OneTouch Ultra Test - TEST BLOOD SUGAR TWO TIMES A DAY 12h 50 Active RESULTS No Results PROCEDURES No Known procedures IMMUNIZATIONS No Known Immunizations
--- OUTSIDE RECORDS SUMMARY | 2017-10-17 23:32 | XMS REPORT ---
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 Problem Shortness of breath 786.05 Active Problem Diabetes type 2, controlled E11.9 Active Problem Diabetes mellitus without complication 250.00 Active Problem Pain in joint, ankle and foot 719.47 Active Problem Pain in joint, upper arm 719.42 Active Assessment Acute non-recurrent frontal sinusitis J01.10 Active Problem Dermatophytosis of nail 110.1 Active Problem Chronic airway obstruction, not elsewhere classified 496 Active Problem Gross hematuria 599.71 Active Problem Nocturnal enuresis 788.36 Active Problem Nondependent tobacco use disorder 305.1 Active Problem Pain in soft tissues of limb 729.5 Active Problem Hematuria, unspecified 599.70 Active Medications Medication Code System Code Instructions Start Date End Date Status Dosage Tylenol [facility] [address]-84 325 MG Orally every 6 hrs 1 tablet as needed Tums [facility] [address]-06 500 MG Orally Four times a day PRN 1 tablet Lantus SoloStar [facility] [address]-24 100 UNIT/ML Subcutaneous Once a day November 08, 2015 44 units Ventolin HFA [facility] 72622327732 90 INHALE TWO PUFFS BY MOUTH EVERY 6 HOURS NEEDED FOR COUGH/WHEEZING Albuterol Sulfate HFA [facility] [address]-82 108 (90 Base) MCG/ACT Inhalation every 4 hrs 2 puffs as needed Geodon [facility] [address]-95 80 MG Orally Twice a day Oct 12, 2014 1 capsule with food Doxepin HCl [facility] [address]-92 50 MG Orally Once a day Jul 07, 2015 1 capsule at bedtime Xanax [facility] [address]-18 1 TAKE ONE TABLET BY MOUTH EVERY MORNING , 1 IN THE AFTERNOON AND 1/2 AT BEDTIME Benadryl [facility] [address]-74 25 MG Orally every 6 hrs 1 tablet as needed Singulair [facility] 63950988148 10 TAKE ONE TABLET BY MOUTH EVERY EVENING Trihexyphenidyl HCl [facility] [address]-08 2 MG Orally 2 times a day 1 tablet Zocor [facility] 03457991862 40 TAKE ONE TABLET BY MOUTH DAILY WITH ZETIA Amoxicillin [facility] [address]-79 500 MG Orally 3 times a day March 07, 2016 March 21, 2016 1 capsule Metformin HCl [facility] [address]-77 850 MG Orally Twice a day, pc Sep 08, 2015 1 tablet with meals Symbicort [facility] [address]-85 160-4.5 MCG/ACT Inhalation Twice a day Jul 03, 2015 2 puffs Flomax [facility] 59863075357 0.4 TAKE TWO CAPSULES BY MOUTH DAILY Diovan [facility] 39859081532 320 TAKE ONE TABLET BY MOUTH DAILY OneTouch Ultra Test NDC 0 Blood Glucose , 2 times a day TEST BLOOD SUGAR Metoprolol Tartrate [facility] 40162923289 50 TAKE ONE TABLET BY MOUTH TWICE A DAY Symbicort [facility] 86700195837 160-4.5 Inhalation Twice a day 2 puffs Lamictal [facility] [address]-33 100 MG Orally Once a day 3 tablets Ranitidine HCl [facility] [address]-45 150 MG Orally PRN 1 capsule Prozac [facility] [address]-04 40 MG Orally Once a day Aug 26, 2014 1 capsule in the morning Zetia [facility] 66728295183 10 TAKE ONE TABLET BY MOUTH DAILY Procedures Procedure Coding System Code Date Office Visit, Est Pt., Level 3 CPT-4 92288 March 07, 2016 [facility] VISIT ESTABLISHED PATIENT CPT-4 G0467 March 07, 2016 Vital Signs Date/Time: March 07, 2016 Cardiac Monitoring Heart Rate 72 bpm Weight 252.5 lbs Height 69 in Blood Pressure Diastolic 85 mmHg Blood Pressure Systolic 124 mmHg Results No Known Results Summary Purpose [employer] Submission
--- OUTSIDE RECORDS SUMMARY | 2017-10-17 23:32 | XMS REPORT ---
Author Author JARED SHOEMAKER Organization [employer] Address Unknown Phone Unavailable Care Team Providers Care Frame Coverer Name Role Phone JARED SHOEMAKER CP Unavailable [...] Instructions Start Date End Date Status Dosage Doxepin HCl [facility] [address]-87 25 MG Orally Once a day may repeat if needed Jun 09, 2015 as directed Results No Known Results Summary Purpose [employer] Submission
--- OUTSIDE RECORDS SUMMARY | 2017-10-17 23:33 | XMS REPORT ---
Author Author LAURA GAMA Organization [employer] Address Unknown Phone Unavailable Care Team Providers Care Barrel Filler Name Role Phone LAURA GAMA CP Unavailable [...] Instructions Start Date End Date Status D[facility] 63832163709 320 TAKE ONE TABLET BY MOUTH DAILY Results No Known Results Summary Purpose [employer] Submission
--- OUTSIDE RECORDS SUMMARY | 2017-10-17 23:33 | XMS REPORT ---
Author Author LAURA GAMA [facility] Address [address] [place] [address] Care Team Providers Care Hris Coordinator Name Role Phone LAURA GAMA Unavailable PROBLEMS Type Condition ICD9-CM Code [id number] Code Onset Dates Condition Status SNOMED Code Problem Dermatophytosis of nail 110.1 Active 103902586 Problem Pain in joint, ankle and foot 719.47 Active 907391384 Problem Diabetes type 2, controlled E11.9 Active 70746749 Problem Pain in joint, upper arm 719.42 Active 197877214 Problem Paranoid schizophrenia F20.0 Active 70622201 Problem Nocturnal enuresis 788.36 Active 4269807 Problem Bipolar affective disorder F31.9 Active 20116495 Problem Type 2 diabetes mellitus without complications E11.9 Active 218632647 Problem Diabetes type 2, uncontrolled E11.65 Active 352464481 Problem Type 2 diabetes mellitus with hyperglycemia E11.65 Active 505160325 Problem intermediate current use of insulin Z79.4 Active 240032208 Problem Gross hematuria 599.71 Active 159843114 Problem Chronic airway obstruction, not elsewhere classified 496 Active 39894428 Problem Pain in soft tissues of limb 729.5 Active 74638507 Problem Schizoaffective disorder F25.9 Active 98524167 Problem Major depressive disorder, recurrent, moderate F33.1 Active 787750777 Problem Major depressive disorder, recurrent, unspecified F33.9 Active 738132839 Problem Generalized anxiety disorder F41.1 Active 73127816 Problem Hyposmolality and/or hyponatremia 276.1 Active 261076053 Problem Generalized anxiety disorder 300.02 Active 50298821 Problem Nondependent tobacco use disorder 305.1 Active 630968816 Problem Hematuria, unspecified 599.70 Active 62111837 Problem 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 949760021621421 Problem Diabetes mellitus without complication 250.00 Active 974198599 Problem Hernia of unspecified site of abdominal cavity without mention of obstruction or gangrene 553.9 Active 92788548 Problem Shortness of breath 786.05 Active 389616455 ALLERGIES Unknown Allergies SOCIAL HISTORY No smoking Hx information available PLAN OF CARE VITAL SIGNS MEDICATIONS Medication Instructions Dosage Frequency Start Date End Date Duration Status Nexium 40 mg Orally Once a day 1 capsule 24h Jul, 30 day(s) Active RESULTS No Results PROCEDURES No Known procedures IMMUNIZATIONS No Known Immunizations
--- OUTSIDE RECORDS SUMMARY | 2017-10-17 23:33 | XMS REPORT ---
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 [id number] Problem Shortness of breath 786.05 Active 672953033 Problem Type 2 diabetes mellitus without complications E11.9 Active 011958472 Problem Dermatophytosis of nail 110.1 Active 202552960 Problem Diabetes type 2, uncontrolled E11.65 Active 553835379 Assessment Major depressive disorder, recurrent, unspecified F33.9 14 Apr Active 152996252 Assessment Schizoaffective disorder F25.9 14 Apr, 2016 Active 49306103 Problem Diabetes type 2, controlled E11.9 Active 13863633 Problem Diabetes mellitus without complication 250.00 Active 981597295 Problem Bipolar affective disorder F31.9 Active 09641212 Problem Paranoid schizophrenia F20.0 Active 67273376 Problem Nocturnal enuresis 788.36 Active 0352097 Problem Pain in soft tissues of limb 729.5 Active 78567387 Problem Pain in joint, ankle and foot 719.47 Active 827014666 Problem Pain in joint, upper arm 719.42 Active 500436952 Problem Nondependent tobacco use disorder 305.1 Active 949043634 Problem Hematuria, unspecified 599.70 Active 38610424 Problem Chronic airway obstruction, not elsewhere classified 496 Active 90042903 Problem Hyposmolality and/or hyponatremia 276.1 Active 391134724 Problem Gross hematuria 599.71 Active 583482268 Problem Generalized anxiety disorder 300.02 Active 94055106 ALLERGIES Unknown Allergies SOCIAL HISTORY No smoking Hx information available PLAN OF CARE VITAL SIGNS Height 69 in 2016-05-08 Weight 256.3 lbs 2016-05-08 Heart Rate 80 bpm 2016-05-08 Respiratory Rate 20 2016-05-08 BMI 37.84 kg/m2 2016-05-08 Blood pressure systolic 138 mmHg 2016-05-08 Blood pressure diastolic 78 mmHg 2016-05-08 MEDICATIONS Medication Instructions Dosage Frequency Start Date End Date Duration Status Ranitidine HCl 150 MG Orally PRN 1 capsule Active Geodon 40 MG Orally once a day 1 capsule with food 24h Apr, 30 day(s) Active Metoprolol Tartrate 50 TAKE ONE TABLET BY MOUTH TWICE A DAY 30 Active Zetia 10 TAKE ONE TABLET BY MOUTH DAILY 30 Active Doxepin HCl 50 MG Orally Once a day 1 capsule at bedtime 24h Jun, 30 days Active Singulair 10 TAKE ONE TABLET BY MOUTH EVERY EVENING 30 Active Ventolin HFA 90 INHALE TWO PUFFS BY MOUTH EVERY 6 HOURS NEEDED FOR COUGH /WHEEZING 25 Active Albuterol Sulfate HFA 108 (90 Base) MCG/ACT Inhalation every 4 hrs 2 puffs as needed 4h Active Prozac 40 MG Orally Once a day 1 capsule in the morning 24h Aug, 30 days Active Trihexyphenidyl HCl 2 MG Orally 2 times a day 1 tablet 12h 30 days Active Xanax 1 MG TAKE ONE TABLET BY MOUTH EVERY MORNING , 1 IN THE AFTERNOON AND 1/2 AT BEDTIME Active Zocor 40 TAKE ONE TABLET BY MOUTH DAILY WITH ZETIA 30 Active Breo Ellipta 100-25 MCG/INH Inhalation Once a day 1 puff 24h 15 Mar, 2016 Active Lantus SoloStar 100 unit/mL Subcutaneous Once a day 44 units 24h 34 Active Benadryl 25 MG Orally every 6 hrs 1 tablet as needed 6h Active Metformin HCl 1,000 Orally Twice a day, pc 1 tablet with meals 30 Active Flomax 0.4 TAKE TWO CAPSULES BY MOUTH DAILY 30 Active Tums 500 MG Orally Four times a day PRN 1 tablet Active Diovan 320 TAKE ONE TABLET BY MOUTH DAILY 30 Active Lamictal 100 MG Orally Once a day 3 tablets 24h 30 days Active Tylenol 325 MG Orally every 6 hrs 1 tablet as needed 6h Active Geodon 80 MG Orally Twice a day 1 capsule with food 12h 18 Sep, 2014 30 days Active Glucometer 1 test blood sugar Apr, Active RESULTS No Results PROCEDURES Procedure Date Ordered Related Diagnosis Body Site [facility] VISIT ESTABLISHED PATIENT May 08, 2016 Office Visit, Est Pt., Level 3 May 08, 2016 IMMUNIZATIONS No Known Immunizations
--- OUTSIDE RECORDS SUMMARY | 2017-10-17 23:33 | XMS REPORT ---
Author LAURA Fuentes [facility] eClinicalWorks Address Unknown Phone Unavailable Care Team Providers Care Box Office Clerk Name Role Phone LAURA GAMA CP Unavailable [...] of obstruction or gangrene 553.9 Active Assessment Ingrown nail L60.0 Active Assessment Tinea unguium B35.1 Active Problem Pain in joint, upper arm 719.42 Active Problem Nocturnal enuresis 788.36 Active Problem Dermatophytosis of nail 110.1 Active Problem Pain in soft tissues of limb 729.5 Active Problem Pain in joint, ankle and foot 719.47 Active Problem Chronic airway obstruction, not elsewhere classified 496 Active Medications Medication Code System Code Instructions Start Date End Date Status Dosage Metoprolol Tartrate [facility] 78654263273 50 TAKE ONE TABLET BY MOUTH TWICE A DAY Lamictal [facility] [address]-55 100 MG Orally Once a day 3 tablets Prozac [facility] [address]-66 40 MG Orally Once a day Aug 26, 2014 1 capsule in the morning Symbicort [facility] [address]-36 160-4.5 MCG/ACT Inhalation Twice a day Jul 03, 2015 2 puffs Victoza [facility] [address]-71 18 MG/3ML Subcutaneous Once a day Jul 03, 2015 Aug 02, 2015 0.2 ml Zocor [facility] 75589003510 40 TAKE ONE TABLET BY MOUTH DAILY WITH ZETIA Xanax [facility] [address]-06 1 MG Orally Three times a day November 08, 2014 take 1/2 tab q am, 1 tab q afternoon, 1/2 tab q evening Albuterol Sulfate HFA [facility] [address]-21 108 (90 Base) MCG/ACT Inhalation every 4 hrs 2 puffs as needed Geodon [facility] [address]-99 80 MG Orally Twice a day Oct 12, 2014 1 capsule with food Xanax [facility] [address]-82 1 MG Orally 1 tablet in am, 1 tablet in afternoon, 1 /2 tablet at bedtime Jul 07, 2015 as directed Zetia [facility] 25813253215 10 TAKE ONE TABLET BY MOUTH DAILY Tums [facility] [address]-78 500 MG Orally Four times a day PRN 1 tablet Diovan [facility] [address]-14 320 MG Orally Once a day 1 tablet Ranitidine HCl [facility] [address]-93 150 MG Orally PRN 1 capsule Doxepin HCl [facility] [address]-89 50 MG Orally Once a day Jul 07, 2015 1 capsule at bedtime Flomax [facility] 42717387857 0.4 TAKE TWO CAPSULES BY MOUTH DAILY Simvastatin [facility] [address]-77 40 MG Orally Once a day Take with Zetia 10 mg Sep 23, 2014 1 tablet Doxepin HCl [facility] [address]-71 25 MG Orally Once a day may repeat if needed Jun 09, 2015 as directed Trihexyphenidyl HCl [facility] [address]-66 2 MG Orally 2 times a day 1 tablet Singulair [facility] 06730964799 10 TAKE ONE TABLET BY MOUTH EVERY EVENING OneTouch Ultra Test [facility] 13078542248 TEST BLOOD SUGAR DAILY Procedures Procedure Coding System Code Date REMOVE NAIL PLATE, ADD-ON CPT-4 58175 Jul 18, 2015 REMOVAL OF NAIL BED CPT-4 84610 Jul 18, 2015 Vital Signs Date/Time: Jul 18, 2015 Temperature 98.0 F Weight 248.5 lbs Height 69 in BMI 36.69 Index Blood Pressure Diastolic 88 mmHg Blood Pressure Systolic 120 mmHg Cardiac Monitoring Heart Rate 80 bpm Results No Known Results Summary Purpose eClinicalWorks Submission
--- OUTSIDE RECORDS SUMMARY | 2017-10-17 23:34 | XMS REPORT ---
Author LAURA Fuentes [facility] eClinicalWorks Address Unknown Phone Unavailable Care Team Providers Care Gaming Surveillance Observer Name Role Phone LAURA GAMA CP Unavailable [...] of obstruction or gangrene 553.9 Active Assessment COPD (chronic obstructive pulmonary disease) with acute bronchitis J44.0 Active Assessment Sinusitis chronic, frontal J32.1 Active Assessment Obesity (BMI 35.0-39.9 without comorbidity) E66.01 Active Assessment Diabetes type 2, controlled E11.9 [...] Instructions Start Date End Date Status Dosage Zetia [facility] 78999514249 10 TAKE ONE TABLET BY MOUTH DAILY OneTouch Ultra Test [facility] 57411243242 TEST BLOOD SUGAR DAILY Ranitidine HCl [facility] [address]-20 150 MG Orally PRN 1 capsule Albuterol Sulfate HFA [facility] [address]-02 108 (90 Base) MCG/ACT Inhalation every 4 hrs 2 puffs as needed Amoxicillin [facility] [address]-91 500 MG Orally 3 times a day Jul 03, 2015 Jul 17, 2015 1 tablet Zocor [facility] 82574294514 40 TAKE ONE TABLET BY MOUTH DAILY WITH ZETIA Xanax [facility] [address]-83 1 MG Orally Three times a day November 08, 2014 take 1/2 tab q am, 1 tab q afternoon, 1/2 tab q evening Trihexyphenidyl HCl [facility] [address]-43 2 MG Orally 2 times a day 1 tablet Simvastatin [facility] [address]-33 40 MG Orally Once a day Take with Zetia 10 mg Sep 23, 2014 1 tablet Singulair [facility] 95601605052 10 TAKE ONE TABLET BY MOUTH EVERY EVENING Symbicort [facility] [address]-44 160-4.5 MCG/ACT Inhalation Twice a day Jul 03, 2015 2 puffs Metoprolol Tartrate [facility] 28788898236 50 TAKE ONE TABLET BY MOUTH TWICE A DAY Flomax [facility] 66857441829 0.4 TAKE TWO CAPSULES BY MOUTH DAILY Prozac [facility] [address]-31 40 MG Orally Once a day Aug 26, 2014 1 capsule in the morning Geodon [facility] [address]-55 80 MG Orally Twice a day Oct 12, 2014 1 capsule with food Diovan [facility] [address]-60 320 MG Orally Once a day 1 tablet Doxepin HCl [facility] [address]-30 25 MG Orally Once a day may repeat if needed Jun 09, 2015 as directed Tums [facility] [address]-71 500 MG Orally Four times a day PRN 1 tablet Victoza [facility] [address]-51 18 MG/3ML Subcutaneous Once a day Jul 03, 2015 Aug 02, 2015 0.2 ml Lamictal [facility] [address]-81 100 MG Orally Once a day 3 tablets Procedures Procedure Coding System Code Date Office Visit, Est Pt., Level 3 CPT-4 73218 Jul 03, 2015 [facility] VISIT ESTABLISHED PATIENT CPT-4 G0467 Jul 03, 2015 Vital Signs Date/Time: Jul 03, 2015 Temperature 98.1 F Weight 245.8 lbs Height 69 in BMI 36.29 Index Blood Pressure Diastolic 88 mmHg Blood Pressure Systolic 130 mmHg Cardiac Monitoring Heart Rate 88 bpm Results No Known Results Summary Purpose eClinicalWorks Submission
--- OUTSIDE RECORDS SUMMARY | 2017-10-17 23:34 | XMS REPORT ---
Author Author LAURA GAMA Organization [facility] Address [address] [place] [address] Care Team Providers Care Fish Technologist Name Role Phone LANETTE LAURA Unavailable PROBLEMS Type Condition ICD9-CM Code [id number] Code Onset Dates Condition Status SNOMED Code Problem Generalized anxiety disorder F41.1 Active 65431903 Problem Major depressive disorder, recurrent, moderate F33.1 Active 844621453 Problem Major depressive disorder, recurrent, unspecified F33.9 Active 49464684 Problem Diabetes type 2, controlled E11.9 Active 31480833 Problem Bipolar affective disorder F31.9 Active 34505589 Problem Paranoid schizophrenia F20.0 Active 05024654 Problem Tardive dyskinesia G24.01 Active 685591127 Problem Non morbid obesity due to excess calories E66.09 Active 659385216 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
--- OUTSIDE RECORDS SUMMARY | 2017-10-17 23:34 | XMS REPORT ---
Author Author JARED SHOEMAKER Organization [employer] Address Unknown Phone Unavailable Care Team Providers Care Wood Preparation Supervisor Name Role Phone JARED SHOEMAKER CP Unavailable [...] obstruction, not elsewhere classified 496 Active Medications No Known Medications Results No Known Results Summary Purpose eClinicalWorks Submission
--- OUTSIDE RECORDS SUMMARY | 2017-10-17 23:34 | XMS REPORT ---
Author Author LAURA GAMA Organization [employer] Address Unknown Phone Unavailable Care Team Providers Care Facilities Custodian Name Role Phone LAURA GAMA CP Unavailable [...] Start Date End Date Status Dosage Victoza [facility] [address]-79 18 MG/3ML Subcutaneous Once a day Jul 03, 2015 1.2mg Results No Known Results Summary Purpose eClinicalWorks Submission
--- OUTSIDE RECORDS SUMMARY | 2017-10-17 23:34 | XMS REPORT ---
Author Author JARED SHOEMAKER Organization [employer] Address Unknown Phone Unavailable Care Team Providers Care Educational Assistant Name Role Phone JARED SHOEMAKER CP Unavailable [...] Start Date End Date Status Dosage Xanax [facility] [address]-28 1 MG Orally TAKE ONE TABLET BY MOUTH EVERY MORNING , 1 IN THE AFTERNOON AND 1/2 AT BEDTIME Results No Known Results Summary Purpose eClinicalWorks Submission
--- OUTSIDE RECORDS SUMMARY | 2017-10-17 23:34 | XMS REPORT ---
Author Author JARED SHOEMAKER [facility] eClinicalWorks Address Unknown Phone Unavailable Care Team Providers Care Retail Field Representative Name Role Phone JARED SHOEMAKER CP Unavailable [...] Instructions Start Date End Date Status Dosage Geodon [facility] [address]-74 80 MG Orally Twice a day Oct 12, 2014 1 capsule with food Xanax [facility] [address]-56 1 MG Orally 1 tablet in am, 1 tablet in afternoon, 1 /2 tablet at bedtime Jul 07, 2015 as directed Metoprolol Tartrate [facility] 56247430933 50 TAKE ONE TABLET BY MOUTH TWICE A DAY Lamictal [facility] [address]-47 100 MG Orally Once a day 3 tablets Trihexyphenidyl HCl [facility] [address]-92 2 MG Orally 2 times a day 1 tablet Doxepin HCl [facility] [address]-00 50 MG Orally Once a day Jul 07, 2015 1 capsule at bedtime Albuterol Sulfate HFA [facility] [address]-56 108 (90 Base) MCG/ACT Inhalation every 4 hrs 2 puffs as needed Tylenol [facility] [address]-30 325 MG Orally every 6 hrs 1 tablet as needed OneTouch Ultra Test ND 0 Blood Glucose , 2 times a day TEST BLOOD SUGAR Singulair [facility] 73850757150 10 TAKE ONE TABLET BY MOUTH EVERY EVENING Zetia [facility] 20571328901 10 TAKE ONE TABLET BY MOUTH DAILY Benadryl [facility] [address]-10 25 MG Orally every 6 hrs 1 tablet as needed Symbicort [facility] [address]-13 160-4.5 MCG/ACT Inhalation Twice a day Jul 03, 2015 2 puffs Flomax [facility] 97216050245 0.4 TAKE TWO CAPSULES BY MOUTH DAILY Zocor [facility] 50718955093 40 TAKE ONE TABLET BY MOUTH DAILY WITH ZETIA Victoza [facility] [address]-57 18 MG/3ML Subcutaneous Once a day Jul 03, 2015 1.2mg Tums [facility] [address]-73 500 MG Orally Four times a day PRN 1 tablet Ranitidine HCl [facility] [address]-26 150 MG Orally PRN [address] capsule [address] [facility] [address]-93 40 MG Orally Once a day Aug 26, 2014 1 capsule in the morning Diovan [facility] [address]-71 320 MG Orally Once a day 1 tablet Procedures Procedure Coding System Code Date Office Visit, Aisha Pt., Level 3 CPT-4 68396 Aug 09, 2015 [facility] VISIT ESTABLISHED PATIENT CPT-4 G0467 Aug 09, 2015 Vital Signs Date/Time: Aug 09, 2015 Cardiac Monitoring Heart Rate 92 bpm Weight 250.8 lbs Height 69 in BMI 37.03 Index Blood Pressure Diastolic 84 mmHg Blood Pressure Systolic 120 mmHg Results No Known Results Summary Purpose eClinicalWorks Submission
--- OUTSIDE RECORDS SUMMARY | 2017-10-17 23:34 | XMS REPORT ---
Author Author JARED SHOEMAKER [facility] eClinicalWorks Address Unknown Phone Unavailable Care Team Providers Care Development Technologist Name Role Phone JARED SHOEMAKER CP Unavailable [...] Active Problem Generalized anxiety disorder 300.02 Active Assessment Major depressive disorder, recurrent, unspecified F33.9 Active Assessment Generalized anxiety disorder F41.1 Active Problem Pain in joint, ankle and foot 719.47 Active Problem Pain in joint, upper arm 719.42 Active Assessment Schizoaffective disorder F25.9 Active Problem Nocturnal enuresis 788.36 Active Problem Dermatophytosis of nail 110.1 Active Problem Pain in soft tissues of limb 729.5 Active Medications Medication Code System Code Instructions Start Date End Date Status Dosage OneTouch Ultra Test [facility] 82762144321 TEST BLOOD SUGAR DAILY Ranitidine HCl [facility] [address]-77 150 MG Orally PRN 1 capsule Albuterol Sulfate HFA [facility] [address]-73 108 (90 Base) MCG/ACT Inhalation every 4 hrs 2 puffs as needed Geodon [facility] [address]-03 80 MG Orally Twice a day Oct 12, 2014 1 capsule with food Xanax [facility] [address]-95 1 MG Orally Three times a day November 08, 2014 take 1/2 tab q am, 1 tab q afternoon, 1/2 tab q evening Zetia [facility] 20678093313 10 TAKE ONE TABLET BY MOUTH DAILY Doxepin HCl [facility] [address]-23 25 MG Orally Once a day may repeat if needed Jun 09, 2015 as directed Chantix [facility] [address]-41 1 MG Orally Twice a day 1 tablet Simvastatin [facility] [address]-55 40 MG Orally Once a day Take with Zetia 10 mg Sep 23, 2014 [address]ums [facility] [address]-67 500 MG Orally Four times a day PRN 1 tablet [place] [facility] [address]-05 5-325 MG Orally every 6 hrs Mar 28, 2015 1 tablet as needed Terbinafine HCl [facility] [address]-06 250 mg October 24, 2014 take 1 tablet (250 mg) by oral route once daily for 6 months [address] [facility] [address]-29 40 MG Orally Once a day Aug 26, 2014 1 capsule in the morning Singulair [facility] 85530009320 10 TAKE ONE TABLET BY MOUTH EVERY EVENING Albuterol Sulfate [facility] [address]-79 2.5 mg /3 mL (0.083 %) February 02, 2014 1 Each by Inhalation route every 4 hours for cough and wheeze PRN for wheezing or cough Diovan [facility] [address]-88 320 MG Orally Once a day 1 tablet Metoprolol Tartrate [facility] 56549497068 50 TAKE ONE TABLET BY MOUTH TWICE A DAY Flomax [facility] 27833426100 0.4 TAKE TWO CAPSULES BY MOUTH DAILY Trihexyphenidyl HCl [facility] [address]-66 2 MG Orally 2 times a day 1 tablet Lamictal [facility] [address]-09 100 MG Orally Once a day 3 tablets Procedures Procedure Coding System Code Date Office Visit, Est Pt., Level 3 CPT-4 34109 Jun 09, 2015 [facility] VISIT ESTABLISHED PATIENT CPT-4 G0467 Jun 09, 2015 Vital Signs Date/Time: Jun 09, 2015 Temperature 97.6 F Weight 245 lbs Height 69 in BMI 36.18 Index Blood Pressure Diastolic 70 mmHg Blood Pressure Systolic 118 mmHg Cardiac Monitoring Heart Rate 76 bpm Results No Known Results Summary Purpose eClinicalWorks Submission
--- OUTSIDE RECORDS SUMMARY | 2017-10-17 23:34 | XMS REPORT ---
Author Author DIANA CARTER Organization [employer] Address Unknown Phone Unavailable Care Team Providers Care Seat Mender Name Role Phone DIANA CARTER CP Unavailable Allergies No Known Allergies Problems [...] in joint, upper arm 719.42 Active Assessment Dental examination V72.2 Active Problem Nocturnal enuresis 788.36 Active Problem Dermatophytosis of nail 110.1 Active Problem Pain in soft tissues of limb 729.5 Active Medications No Known Medications Procedures Procedure Coding System Code Date INTRAORL-PERIAPICAL 1 FILM 30118 CPT-4 D0220 Apr 13, 2015 INTRAORL-PERIAPICAL EA ADD FILM CPT-4 D0230 Apr 13, 2015 COMP ORAL EVALUATION - NEW/EST PT CPT-4 D0150 Apr 13, 2015 PANORAMIC FILM SEE ALSO CODE 01080 CPT-4 D0330 Apr 13, 2015 BITEWINGS - FOUR FILMS CPT-4 D0274 Apr 13, 2015 INTRAORL-PERIAPICAL EA ADD FILM CPT-4 D0230 Apr 13, 2015 INTRAORL-PERIAPICAL EA ADD FILM CPT-4 D0230 Apr 13, 2015 INTRAORL-PERIAPICAL EA ADD FILM CPT-4 D0230 Apr 13, 2015 INTRAORL-PERIAPICAL EA ADD FILM CPT-4 D0230 Apr 13, 2015 Results No Known Results Summary Purpose eClinicalWorks Submission
--- OUTSIDE RECORDS SUMMARY | 2017-10-17 23:34 | XMS REPORT ---
Author LAURA Fuentes [facility] eClinicalWorks Address Unknown Phone Unavailable Care Team Providers Care Engraving Supervisor Name Role Phone LAURA GAMA CP [...] Problem Generalized anxiety disorder 300.02 Active Assessment Hypertrophy of nail L60.2 Active Assessment Onychomycosis B35.1 Active Problem Pain in joint, ankle and foot 719.47 Active Problem Pain in joint, upper arm 719.42 Active Assessment Encounter for immunization Z23 Active Problem Nocturnal enuresis 788.36 Active Problem Dermatophytosis of nail 110.1 Active Problem Pain in soft tissues of limb 729.5 Active Medications Medication Code System Code Instructions Start Date End Date Status Dosage Flomax [facility] 15726503506 0.4 TAKE TWO CAPSULES BY MOUTH DAILY [place] [facility] [address]-88 5-325 MG Orally every 6 hrs Mar 28, 2015 1 tablet as needed Albuterol Sulfate [facility] [address]-67 2.5 mg /3 mL (0.083 %) February 02, 2014 1 Each by Inhalation route every 4 hours for cough and wheeze PRN for wheezing or cough OneTouch Ultra Test [facility] [id number] TEST BLOOD SUGAR DAILY Doxepin HCl [facility] [address]-15 25 MG Orally Once a day may repeat if needed Jun 09, 2015 as directed Prozac [facility] [address]-12 40 MG Orally Once a day Aug 26, 2014 1 capsule in the morning Zetia [facility] [id number] 10 TAKE ONE TABLET BY MOUTH DAILY Trihexyphenidyl HCl [facility] [address]-82 2 MG Orally 2 times a day 1 tablet Terbinafine HCl [facility] [address]-34 250 mg October 24, 2014 take 1 tablet (250 mg) by oral route once daily for 6 months Singulair [facility] 74458320578 10 TAKE ONE TABLET BY MOUTH EVERY EVENING Lamictal [facility] [address]-10 100 MG Orally Once a day 3 tablets Geodon [facility] [address]-80 80 MG Orally Twice a day Oct 12, 2014 1 capsule with food Albuterol Sulfate HFA [facility] [address]-77 108 (90 Base) MCG/ACT Inhalation every 4 hrs 2 puffs as needed Simvastatin [facility] [address]-03 40 MG Orally Once a day Take with Zetia 10 mg Sep 23, 2014 1 tablet Metoprolol Tartrate [facility] 28139955622 50 TAKE ONE TABLET BY MOUTH TWICE A DAY Ranitidine HCl [facility] [address]-33 150 MG Orally PRN 1 capsule Xanax [facility] [address]-53 1 MG Orally Three times a day November 08, 2014 take 1/2 tab q am, 1 tab q afternoon, 1/2 tab q evening Diovan [facility] [address]-85 320 MG Orally Once a day 1 tablet Chantix [facility] [address]-87 1 MG Orally Twice a day 1 tablet Tums [facility] [address]-32 500 MG Orally Four times a day PRN 1 tablet Procedures Procedure Coding System Code Date SINGLE IMMUNIZATION ADMIN CPT-4 73441 Jun 13, 2015 ADMN FLU VAC NO FEE SCHED SAME DAY CPT-4 G0008 Jun 13, 2015 FLUARIX QUAD (3 & UP)-[facility]-2014 CPT-4 89695 Jun 13, 2015 REMOVE NAIL PLATE, ADD-ON CPT-4 63708 Jun 13, 2015 REMOVAL OF NAIL PLATE CPT-4 62727 Jun 13, 2015 Vital Signs Date/Time: Jun 13, 2015 Temperature 97.7 F Weight 244.6 lbs Height 69 in BMI 36.12 Index Blood Pressure Diastolic 74 mmHg Blood Pressure Systolic 130 mmHg Cardiac Monitoring Heart Rate 76 bpm Results No Known Results Immunizations Vaccine Administration Date FLUARIX QUAD (3 & UP)-[facility]-2014Jun 13, 2015 Summary Purpose eClinicalWorks Submission
--- OUTSIDE RECORDS SUMMARY | 2017-10-17 23:34 | XMS REPORT ---
Author Author JARED SHOEMAKER Organization eClinicalWorks Address Unknown Phone Unavailable Care Team Providers Care Middleware Consultant Name Role Phone JARED SHOEMAKER CP Unavailable Allergies No Known Allergies Problems Problem Type Condition Code Onset Dates Condition Status Problem Generalized anxiety disorder 300.02 Active Problem Shortness of breath 786.05 Active Problem Hernia of unspecified site of abdominal cavity without mention of obstruction or gangrene 553.9 Active Problem Diabetes type 2, uncontrolled E11.65 Active Problem Bipolar affective disorder F31.9 Active Problem Type 2 diabetes mellitus without [...] 729.5 Active Problem Hematuria, unspecified 599.70 Active Problem Chronic airway obstruction, not elsewhere classified 496 Active Problem Hyposmolality and/or hyponatremia 276.1 Active Medications Medication Code System Code Instructions Start Date End Date Status Dosage Xanax [facility] [address]-44 1 MG Orally TAKE ONE TABLET BY MOUTH EVERY MORNING , 1 IN THE AFTERNOON AND 1/2 AT BEDTIME Results No Known Results Summary Purpose eClinicalWorks Submission
--- OUTSIDE RECORDS SUMMARY | 2017-10-17 23:35 | XMS REPORT ---
Author LAURA Fuentes [facility] eClinicalWorks Address Unknown Phone Unavailable Care Team Providers Care Agent Name Role Phone LAURA GAMA CP Unavailable [...] in joint, upper arm 719.42 Active Assessment Diabetes type 2, uncontrolled E11.65 Active Problem Dermatophytosis of nail 110.1 Active Problem Chronic airway obstruction, not elsewhere classified 496 Active Problem Gross hematuria 599.71 Active Problem Nocturnal enuresis 788.36 Active Problem Nondependent tobacco use disorder 305.1 Active Problem Pain in soft tissues of limb 729.5 Active Problem Hematuria, unspecified 599.70 Active Medications Medication Code System Code Instructions Start Date End Date Status Dosage Metformin HCl [facility] [address]-14 1000 MG Orally Twice a day, pc Sep 08, 2015 1 tablet with meals Prozac [facility] [address]-61 40 MG Orally Once a day Aug 26, 2014 1 capsule in the morning Trihexyphenidyl HCl [facility] [address]-99 2 MG Orally 2 times a day 1 tablet Lamictal [facility] [address]-72 100 MG Orally Once a day 3 tablets Ventolin HFA [facility] 28016999390 90 INHALE TWO PUFFS BY MOUTH EVERY 6 HOURS NEEDED FOR COUGH/WHEEZING Symbicort [facility] [address]-60 160-4.5 MCG/ACT Inhalation Twice a day Jul 03, 2015 2 puffs Tums [facility] [address]-34 500 MG Orally Four times a day PRN 1 tablet Singulair [facility] 31848696124 10 TAKE ONE TABLET BY MOUTH EVERY EVENING Xanax [facility] [address]-78 1 MG Orally 1 tablet in am, 1 tablet in afternoon, 1 /2 tablet at bedtime Jul 07, 2015 as directed Geodon [facility] [address]-20 80 MG Orally Twice a day Oct 12, 2014 1 capsule with food Ranitidine HCl [facility] [address]-49 150 MG Orally PRN 1 capsule Victoza [facility] [address]-09 18 MG/3ML Subcutaneous Once a day Jul 03, 2015 1.2mg Benadryl [facility] [address]-21 25 MG Orally every 6 hrs 1 tablet as needed Tylenol [facility] [address]-31 325 MG Orally every 6 hrs 1 tablet as needed Diovan [facility] [address]-33 320 MG Orally Once a day 1 tablet Albuterol Sulfate HFA [facility] [address]-14 108 (90 Base) MCG/ACT Inhalation every 4 hrs 2 puffs as needed Doxepin HCl [facility] [address]-40 50 MG Orally Once a day Jul 07, 2015 1 capsule at bedtime Zetia [facility] 38508574158 10 TAKE ONE TABLET BY MOUTH DAILY Zocor [facility] 26333764738 40 TAKE ONE TABLET BY MOUTH DAILY WITH ZETIA Flomax [facility] 34618720271 0.4 TAKE TWO CAPSULES BY MOUTH DAILY Insulin Detemir [facility] [address]-64 100 UNIT/ML Subcutaneous Once a day Sep 08, 2015 20 u hs Metoprolol Tartrate [facility] 85990788792 50 TAKE ONE TABLET BY MOUTH TWICE A DAY OneTouch Ultra Test ND 0 Blood Glucose , 2 times a day TEST BLOOD SUGAR Procedures Procedure Coding System Code Date Office Visit, Est Pt., Level 3 CPT-4 34165 Sep 18, 2015 [facility] VISIT ESTABLISHED PATIENT CPT-4 G0467 Sep 18, 2015 Vital Signs Date/Time: Sep 18, 2015 Temperature 98.4 F Weight 247.7 lbs Height 69 in BMI 36.57 Index Blood Pressure Diastolic 100 mmHg Blood Pressure Systolic 139 mmHg Cardiac Monitoring Heart Rate 80 bpm Results No Known Results Summary Purpose eClinicalWorks Submission
--- OUTSIDE RECORDS SUMMARY | 2017-10-17 23:35 | XMS REPORT ---
Author Author LAURA GAMA Organization e[employer] Address Unknown Phone Unavailable Care Team Providers Care Drawing Instructor Name Role Phone LAURA GAMA CP Unavailable [...]
--- OUTSIDE RECORDS SUMMARY | 2017-10-17 23:35 | XMS REPORT ---
Author Author LAURA GAMA Organization e[employer] Address Unknown Phone Unavailable Care Team Providers Care Cavalry Scout Name Role Phone LAURA GAMA CP Unavailable [...] End Date Status Dosage OneTouch Ultra Test NDC 0 Blood Glucose , 2 times a day TEST BLOOD SUGAR Results No Known Results Summary Purpose eClinicalWorks Submission
--- OUTSIDE RECORDS SUMMARY | 2017-10-17 23:37 | XMS REPORT | Continuity of Care Document ---
Author Author [facility] Address Unknown Phone Unavailable Allergies Active Description Code Type Severity Reaction Onset Reported/Identified Relationship to Patient Clinical Status Yes No Known Drug Allergies [id number] Drug Allergy Unknown N/A 04/25/2010 Medications There is no data. Problems Date Dx Coded Attending Type Code Diagnosis Diagnosed By 04/12/2008 ELINOR LAURENT DO 250.00 DIABETES MELLITUS TYPE 2 04/12/2008 ELINOR LAURENT DO 272.4 HYPERLIPIDEMIA HYPERLIPOPROTEINEMIAS (Old Classification) 04/12/2008 ELINOR LAURENT DO 401.1 ESSENTIAL HYPERTENSION BENIGN 04/12/2008 LAURA GAMA APRN 250.00 DIABETES MELLITUS TYPE 2 04/12/2008 LAURA GAMA APRN 272.4 HYPERLIPIDEMIA HYPERLIPOPROTEINEMIAS (Old Classification) 04/12/2008 LAURA GAMA APRN 401.1 ESSENTIAL HYPERTENSION BENIGN 04/12/2008 LAURA GAMA APRN 250.00 DIABETES MELLITUS TYPE 2 04/12/2008 LAURA GAMA APRN 272.4 HYPERLIPIDEMIA HYPERLIPOPROTEINEMIAS (Old Classification) 04/12/2008 LAURA GAMA APRN 401.1 ESSENTIAL HYPERTENSION BENIGN 04/12/2008 LAURA GAMA APRN 250.00 DIABETES MELLITUS TYPE 2 04/12/2008 LAURA GAMA APRN 272.4 HYPERLIPIDEMIA HYPERLIPOPROTEINEMIAS (Old Classification) 04/12/2008 LAURA GAMA APRN 401.1 ESSENTIAL HYPERTENSION BENIGN 04/12/2008 GINA CRAWLEY APRN 250.00 DIABETES MELLITUS TYPE 2 04/12/2008 GINA CRAWLEY APRN 272.4 HYPERLIPIDEMIA HYPERLIPOPROTEINEMIAS (Old Classification) 04/12/2008 GINA CRAWLEY APRN 401.1 ESSENTIAL HYPERTENSION BENIGN 04/12/2008 LAURA GAMA APRN 250.00 DIABETES MELLITUS TYPE 2 04/12/2008 LAURA GAMA APRN 272.4 HYPERLIPIDEMIA HYPERLIPOPROTEINEMIAS (Old Classification) 04/12/2008 LAURA GAMA APRN 401.1 ESSENTIAL HYPERTENSION BENIGN 04/12/2008 LAURENT DO, ELINOR K 250.00 DIABETES MELLITUS TYPE 2 04/12/2008 LAURENT DO, ELINOR K 272.4 HYPERLIPIDEMIA HYPERLIPOPROTEINEMIAS (Old Classification) 04/12/2008 LAURENT DO, ELINOR K 401.1 ESSENTIAL HYPERTENSION BENIGN 04/12/2008 250.00 DIABETES MELLITUS TYPE 2 04/12/2008 272.4 HYPERLIPIDEMIA HYPERLIPOPROTEINEMIAS (Old Classification) 04/12/2008 401.1 ESSENTIAL HYPERTENSION BENIGN 04/12/2008 250.00 DIABETES MELLITUS TYPE 2 04/12/2008 272.4 HYPERLIPIDEMIA HYPERLIPOPROTEINEMIAS (Old Classification) 04/12/2008 401.1 ESSENTIAL HYPERTENSION BENIGN 04/12/2008 250.00 DIABETES MELLITUS TYPE 2 04/12/2008 272.4 HYPERLIPIDEMIA HYPERLIPOPROTEINEMIAS (Old Classification) 04/12/2008 401.1 ESSENTIAL HYPERTENSION BENIGN 04/12/2008 250.00 DIABETES MELLITUS TYPE 2 04/12/2008 272.4 HYPERLIPIDEMIA HYPERLIPOPROTEINEMIAS (Old Classification) 04/12/2008 401.1 ESSENTIAL HYPERTENSION BENIGN 04/12/2008 250.00 DIABETES MELLITUS TYPE 2 04/12/2008 272.4 HYPERLIPIDEMIA HYPERLIPOPROTEINEMIAS (Old Classification) 04/12/2008 401.1 ESSENTIAL HYPERTENSION BENIGN 04/12/2008 250.00 DIABETES MELLITUS TYPE 2 04/12/2008 272.4 HYPERLIPIDEMIA HYPERLIPOPROTEINEMIAS (Old Classification) 04/12/2008 401.1 ESSENTIAL HYPERTENSION BENIGN 04/12/2008 250.00 DIABETES MELLITUS TYPE 2 04/12/2008 272.4 HYPERLIPIDEMIA HYPERLIPOPROTEINEMIAS (Old Classification) 04/12/2008 401.1 ESSENTIAL HYPERTENSION BENIGN 04/12/2008 LAURENT DO, ELINOR K 250.00 DIABETES MELLITUS TYPE 2 04/12/2008 LAURENT DO, ELINOR K 272.4 HYPERLIPIDEMIA HYPERLIPOPROTEINEMIAS (Old Classification) 04/12/2008 LAURENT DO, ELINOR K 401.1 ESSENTIAL HYPERTENSION BENIGN 04/12/2008 GINA CRAWLEY APRN 250.00 DIABETES MELLITUS TYPE 2 04/12/2008 GINA CRAWLEY APRN 272.4 HYPERLIPIDEMIA HYPERLIPOPROTEINEMIAS (Old Classification) 04/12/2008 GINA CRAWLEY APRN 401.1 ESSENTIAL HYPERTENSION BENIGN 04/12/2008 LAURA GAMA APRN 250.00 DIABETES MELLITUS TYPE 2 04/12/2008 LAURA GAMA APRN 272.4 HYPERLIPIDEMIA HYPERLIPOPROTEINEMIAS (Old Classification) 04/12/2008 LAURA GAMA APRN 401.1 ESSENTIAL HYPERTENSION BENIGN 04/12/2008 ADELE STOKES MD 250.00 DIABETES MELLITUS TYPE 2 04/12/2008 ADELE STOKES MD 272.4 HYPERLIPIDEMIA HYPERLIPOPROTEINEMIAS (Old Classification) 04/12/2008 ADELE STOKES MD 401.1 ESSENTIAL HYPERTENSION BENIGN 04/12/2008 LAURA GAMA APRN 250.00 DIABETES MELLITUS TYPE 2 04/12/2008 LAURA GAMA APRN T 272.4 HYPERLIPIDEMIA HYPERLIPOPROTEINEMIAS (Old Classification) 04/12/2008 LAURA GAMA APRN 401.1 ESSENTIAL HYPERTENSION BENIGN 04/12/2008 ADELE STOKES MD 250.00 DIABETES MELLITUS TYPE 2 04/12/2008 ADELE STOKES MD 272.4 HYPERLIPIDEMIA HYPERLIPOPROTEINEMIAS (Old Classification) 04/12/2008 ADELE STOKES MD 401.1 ESSENTIAL HYPERTENSION BENIGN 04/12/2008 LAURA GAMA APRN 250.00 DIABETES MELLITUS TYPE 2 04/12/2008 LAURA GAMA APRN 272.4 HYPERLIPIDEMIA HYPERLIPOPROTEINEMIAS (Old Classification) 04/12/2008 LAURA GAMA APRN T 401.1 ESSENTIAL HYPERTENSION BENIGN 04/12/2008 250.00 DIABETES MELLITUS TYPE 2 04/12/2008 272.4 HYPERLIPIDEMIA HYPERLIPOPROTEINEMIAS (Old Classification) 04/12/2008 401.1 ESSENTIAL HYPERTENSION BENIGN 04/12/2008 GINA CRAWLEY APRN 250.00 DIABETES MELLITUS TYPE 2 04/12/2008 GINA CRAWLEY APRN 272.4 HYPERLIPIDEMIA HYPERLIPOPROTEINEMIAS (Old Classification) 04/12/2008 GINA CRAWLEY APRN 401.1 ESSENTIAL HYPERTENSION BENIGN 04/12/2008 LAURA GAMA APRN T 250.00 DIABETES MELLITUS TYPE 2 04/12/2008 LAURA GAMA APRN 272.4 HYPERLIPIDEMIA HYPERLIPOPROTEINEMIAS (Old Classification) 04/12/2008 LAURA GAMA APRN T 401.1 ESSENTIAL HYPERTENSION BENIGN 04/12/2008 LAURA GAMA APRN T 250.00 DIABETES MELLITUS TYPE 2 04/12/2008 LAURA GAMA APRN T 272.4 HYPERLIPIDEMIA HYPERLIPOPROTEINEMIAS (Old Classification) 04/12/2008 LAURA GAMA APRN T 401.1 ESSENTIAL HYPERTENSION BENIGN 04/12/2008 LAURA GAMA APRN T 250.00 DIABETES MELLITUS TYPE 2 04/12/2008 LAURA GAMA APRN T 272.4 HYPERLIPIDEMIA HYPERLIPOPROTEINEMIAS (Old Classification) 04/12/2008 LAURA GAMA APRN T 401.1 ESSENTIAL HYPERTENSION BENIGN 04/12/2008 MISBAH CORONAN, GINA YAZMIN 250.00 DIABETES MELLITUS TYPE 2 04/12/2008 MISBAH SOFTWARE DEVELOPER MID LEVEL, GINA YAZMIN 272.4 HYPERLIPIDEMIA HYPERLIPOPROTEINEMIAS (Old Classification) 04/12/2008 MISBAH CORONAN, GINA YAZMIN 401.1 ESSENTIAL HYPERTENSION BENIGN 04/12/2008 MISBAH CORONAN, GINA YAZMIN 250.00 DIABETES MELLITUS TYPE 2 04/12/2008 MISBAH CORONAN, GINA YAZMIN 272.4 HYPERLIPIDEMIA HYPERLIPOPROTEINEMIAS (Old Classification) 04/12/2008 MISBAH CORONAN, GINA YAZMIN 401.1 ESSENTIAL HYPERTENSION BENIGN 04/12/2008 LAURA GAMA APRN T 250.00 DIABETES MELLITUS TYPE 2 04/12/2008 LAURA GAMA APRN T 272.4 HYPERLIPIDEMIA HYPERLIPOPROTEINEMIAS (Old Classification) 04/12/2008 LAURA GAMA APRN T 401.1 ESSENTIAL HYPERTENSION BENIGN 04/12/2008 MISBAH CORONAN, GINA YAZMIN 250.00 DIABETES MELLITUS TYPE 2 04/12/2008 MISBAH CORONAN, GINA YAZMIN 272.4 HYPERLIPIDEMIA HYPERLIPOPROTEINEMIAS (Old Classification) 04/12/2008 MISBAH CORONAN, GINA YAZMIN 401.1 ESSENTIAL HYPERTENSION BENIGN 04/12/2008 LAURA GAMA APRN T 250.00 DIABETES MELLITUS TYPE 2 04/12/2008 LAURA GAMA APRN T 272.4 HYPERLIPIDEMIA HYPERLIPOPROTEINEMIAS (Old Classification) 04/12/2008 LAURA GAMA APRN T 401.1 ESSENTIAL HYPERTENSION BENIGN 04/12/2008 NAV[employer] APPLICATION DEVELOPMENT INTERN, JARED M 250.00 DIABETES MELLITUS TYPE 2 04/12/2008 [employer] APPLICATION DEVELOPMENT INTERN, JARED M 272.4 HYPERLIPIDEMIA HYPERLIPOPROTEINEMIAS (Old Classification) 04/12/2008 [employer] APPLICATION DEVELOPMENT INTERN, JARED M 401.1 ESSENTIAL HYPERTENSION BENIGN 04/12/2008 LAURA GAMA APRN T 250.00 DIABETES MELLITUS TYPE 2 04/12/2008 LAURA GAMA APRN T 272.4 HYPERLIPIDEMIA HYPERLIPOPROTEINEMIAS (Old Classification) 04/12/2008 LAURA GAMA APRN T 401.1 ESSENTIAL HYPERTENSION BENIGN 04/12/2008 LAURA GAMA APRN 250.00 DIABETES MELLITUS TYPE 2 04/12/2008 LAURA GAMA APRN 272.4 HYPERLIPIDEMIA HYPERLIPOPROTEINEMIAS (Old Classification) 04/12/2008 LAURA GAMA APRN 401.1 ESSENTIAL HYPERTENSION BENIGN 08/29/2008 LAURENT DO, ELINOR K 272.0 HYPERLIPIDEMIA FAMILIAL HYPERCHOLESTEROLEMIA 08/29/2008 LAURA GAMA APRN T 272.0 HYPERLIPIDEMIA FAMILIAL HYPERCHOLESTEROLEMIA 08/29/2008 LAURA GAMA APRN T 272.0 HYPERLIPIDEMIA FAMILIAL HYPERCHOLESTEROLEMIA 08/29/2008 LAURA GAMA APRN T 272.0 HYPERLIPIDEMIA FAMILIAL HYPERCHOLESTEROLEMIA 08/29/2008 GINA CRAWLEY APRN 272.0 HYPERLIPIDEMIA FAMILIAL HYPERCHOLESTEROLEMIA 08/29/2008 LAURA GAMA APRN 272.0 HYPERLIPIDEMIA FAMILIAL HYPERCHOLESTEROLEMIA 08/29/2008 LAURENT DO, ELINOR K 272.0 HYPERLIPIDEMIA FAMILIAL HYPERCHOLESTEROLEMIA 08/29/2008 272.0 HYPERLIPIDEMIA FAMILIAL HYPERCHOLESTEROLEMIA 08/29/2008 272.0 HYPERLIPIDEMIA FAMILIAL HYPERCHOLESTEROLEMIA 08/29/2008 272.0 HYPERLIPIDEMIA FAMILIAL HYPERCHOLESTEROLEMIA 08/29/2008 272.0 HYPERLIPIDEMIA FAMILIAL HYPERCHOLESTEROLEMIA 08/29/2008 272.0 HYPERLIPIDEMIA FAMILIAL HYPERCHOLESTEROLEMIA 08/29/2008 272.0 HYPERLIPIDEMIA FAMILIAL HYPERCHOLESTEROLEMIA 08/29/2008 272.0 HYPERLIPIDEMIA FAMILIAL HYPERCHOLESTEROLEMIA 08/29/2008 LAURENT DO, ELINOR K 272.0 HYPERLIPIDEMIA FAMILIAL HYPERCHOLESTEROLEMIA 08/29/2008 GINA CRAWLEY APRNH 272.0 HYPERLIPIDEMIA FAMILIAL HYPERCHOLESTEROLEMIA 08/29/2008 LAURA GAMA APRN T 272.0 HYPERLIPIDEMIA FAMILIAL HYPERCHOLESTEROLEMIA 08/29/2008 ADELE STOKES MD 272.0 HYPERLIPIDEMIA FAMILIAL HYPERCHOLESTEROLEMIA 08/29/2008 LAURA GAMA APRN 272.0 HYPERLIPIDEMIA FAMILIAL HYPERCHOLESTEROLEMIA 08/29/2008 ADELE STOKES MD 272.0 HYPERLIPIDEMIA FAMILIAL HYPERCHOLESTEROLEMIA 08/29/2008 LAURA GAMA APRN 272.0 HYPERLIPIDEMIA FAMILIAL HYPERCHOLESTEROLEMIA 08/29/2008 272.0 HYPERLIPIDEMIA FAMILIAL HYPERCHOLESTEROLEMIA 08/29/2008 GINA CRAWLEY APRN 272.0 HYPERLIPIDEMIA FAMILIAL HYPERCHOLESTEROLEMIA 08/29/2008 LAURA GAMA APRN 272.0 HYPERLIPIDEMIA FAMILIAL HYPERCHOLESTEROLEMIA 08/29/2008 LAURA GAMA APRN 272.0 HYPERLIPIDEMIA FAMILIAL HYPERCHOLESTEROLEMIA 08/29/2008 LAURA GAMA APRN 272.0 HYPERLIPIDEMIA FAMILIAL HYPERCHOLESTEROLEMIA 08/29/2008 GINA CRAWLEY APRN 272.0 HYPERLIPIDEMIA FAMILIAL HYPERCHOLESTEROLEMIA 08/29/2008 GINA CRAWLEY APRN 272.0 HYPERLIPIDEMIA FAMILIAL HYPERCHOLESTEROLEMIA 08/29/2008 LAURA GAMA APRN T 272.0 HYPERLIPIDEMIA FAMILIAL HYPERCHOLESTEROLEMIA 08/29/2008 GINA CRAWLEY APRN 272.0 HYPERLIPIDEMIA FAMILIAL HYPERCHOLESTEROLEMIA 08/29/2008 LAURA GAMA APRN T 272.0 HYPERLIPIDEMIA FAMILIAL HYPERCHOLESTEROLEMIA 08/29/2008 [employer] APPLICATION DEVELOPMENT INTERNJARED 272.0 HYPERLIPIDEMIA FAMILIAL HYPERCHOLESTEROLEMIA 08/29/2008 LAURA GAMA APRN T 272.0 HYPERLIPIDEMIA FAMILIAL HYPERCHOLESTEROLEMIA 08/29/2008 LAURA GAMA APRN T 272.0 HYPERLIPIDEMIA FAMILIAL HYPERCHOLESTEROLEMIA 09/13/2008 ELINOR LAURENT DO K 790.4 Serum Enzyme Levels - ALT (SGPT) Elevated 09/13/2008 LAURA GAMA APRN T 790.4 Serum Enzyme Levels - ALT (SGPT) Elevated 09/13/2008 LAURA GAMA APRN T 790.4 Serum Enzyme Levels - ALT (SGPT) Elevated 09/13/2008 LAURA GAMA APRN T 790.4 Serum Enzyme Levels - ALT (SGPT) Elevated 09/13/2008 GINA CRAWLEY APRN 790.4 Serum Enzyme Levels - ALT (SGPT) Elevated 09/13/2008 LAURA GAMA APRN T 790.4 Serum Enzyme Levels - ALT (SGPT) Elevated 09/13/2008 ELINOR LAURENT DO K 790.4 Serum Enzyme Levels - ALT (SGPT) Elevated 09/13/2008 790.4 Serum Enzyme Levels - ALT (SGPT) Elevated 09/13/2008 790.4 Serum Enzyme Levels - ALT (SGPT) Elevated 09/13/2008 790.4 Serum Enzyme Levels - ALT (SGPT) Elevated 09/13/2008 790.4 Serum Enzyme Levels - ALT (SGPT) Elevated 09/13/2008 790.4 Serum Enzyme Levels - ALT (SGPT) Elevated 09/13/2008 790.4 Serum Enzyme Levels - ALT (SGPT) Elevated 09/13/2008 790.4 Serum Enzyme Levels - ALT (SGPT) Elevated 09/13/2008 ELINOR LAURENT DO K 790.4 Serum Enzyme Levels - ALT (SGPT) Elevated 09/13/2008 GINA CRAWLEY APRN 790.4 Serum Enzyme Levels - ALT (SGPT) Elevated 09/13/2008 LAURA GAMA APRN T 790.4 Serum Enzyme Levels - ALT (SGPT) Elevated 09/13/2008 ADELE STOKES MD 790.4 Serum Enzyme Levels - ALT (SGPT) Elevated 09/13/2008 LAURA GAMA APRN T 790.4 Serum Enzyme Levels - ALT (SGPT) Elevated 09/13/2008 ADELE STOKES MD 790.4 Serum Enzyme Levels - ALT (SGPT) Elevated 09/13/2008 LAURA GAMA APRN T 790.4 Serum Enzyme Levels - ALT (SGPT) Elevated 09/13/2008 790.4 Serum Enzyme Levels - ALT (SGPT) Elevated 09/13/2008 MISBAH MARK GINA VALENZUELAH 790.4 Serum Enzyme Levels - ALT (SGPT) Elevated 09/13/2008 LAURA GAMA APRN T 790.4 Serum Enzyme Levels - ALT (SGPT) Elevated 09/13/2008 LAURA GAMA APRN T 790.4 Serum Enzyme Levels - ALT (SGPT) Elevated 09/13/2008 LAURA GAMA APRN T 790.4 Serum Enzyme Levels - ALT (SGPT) Elevated 09/13/2008 CRAWLEY SOFTWARE DEVELOPER MID LEVEL, GINA ARCE 790.4 Serum Enzyme Levels - ALT (SGPT) Elevated 09/13/2008 CRAWELY APRN, GINA VALENZUELAH 790.4 Serum Enzyme Levels - ALT (SGPT) Elevated 09/13/2008 LAURA GAMA APRN T 790.4 Serum Enzyme Levels - ALT (SGPT) Elevated 09/13/2008 CRAWLEYANUP MARK GINA ARCE 790.4 Serum Enzyme Levels - ALT (SGPT) Elevated 09/13/2008 LAURA GAMA APRN T 790.4 Serum Enzyme Levels - ALT (SGPT) Elevated 09/13/2008 JARED ARMIJO 790.4 Serum Enzyme Levels - ALT (SGPT) Elevated 09/13/2008 LAURA GAMA APRN T 790.4 Serum Enzyme Levels - ALT (SGPT) Elevated 09/13/2008 LAURA GAMA APRN T 790.4 Serum Enzyme Levels - ALT (SGPT) Elevated 11/29/2008 ELINOR LAURENT DO 461.0 SINUSITIS ACUTE MAXILLARY 11/29/2008 LAURA GAMA APRN T 461.0 SINUSITIS ACUTE MAXILLARY 11/29/2008 LAURA GAMA APRN T 461.0 SINUSITIS ACUTE MAXILLARY 11/29/2008 LAURA GAMA APRN T 461.0 SINUSITIS ACUTE MAXILLARY 11/29/2008 MISBAH MARK, GINA VALENZUELAH 461.0 SINUSITIS ACUTE MAXILLARY 11/29/2008 LAURA GAMA APRN T 461.0 SINUSITIS ACUTE MAXILLARY 11/29/2008 ELINOR LAURENT DO K 461.0 SINUSITIS ACUTE MAXILLARY 11/29/2008 461.0 SINUSITIS ACUTE MAXILLARY 11/29/2008 461.0 SINUSITIS ACUTE MAXILLARY 11/29/2008 461.0 SINUSITIS ACUTE MAXILLARY 11/29/2008 461.0 SINUSITIS ACUTE MAXILLARY 11/29/2008 461.0 SINUSITIS ACUTE MAXILLARY 11/29/2008 461.0 SINUSITIS ACUTE MAXILLARY 11/29/2008 461.0 SINUSITIS ACUTE MAXILLARY 11/29/2008 ANASTASIIA FLORES ELINOR K 461.0 SINUSITIS ACUTE MAXILLARY 11/29/2008 MISBAH MARK, GINA ARCE 461.0 SINUSITIS ACUTE MAXILLARY 11/29/2008 LAURA GAMA APRN 461.0 SINUSITIS ACUTE MAXILLARY 11/29/2008 ADELE STOKES MD 461.0 SINUSITIS ACUTE MAXILLARY 11/29/2008 LAURA GAMA APRN 461.0 SINUSITIS ACUTE MAXILLARY 11/29/2008 ADELE STOKES MD 461.0 SINUSITIS ACUTE MAXILLARY 11/29/2008 LAURA GAMA APRN 461.0 SINUSITIS ACUTE MAXILLARY 11/29/2008 461.0 SINUSITIS ACUTE MAXILLARY 11/29/2008 MISBAH MARK, GINA VALENZUELAH 461.0 SINUSITIS ACUTE MAXILLARY 11/29/2008 LAURA GAMA APRN 461.0 SINUSITIS ACUTE MAXILLARY 11/29/2008 LAURA GAMA APRN T 461.0 SINUSITIS ACUTE MAXILLARY 11/29/2008 LAURA GAMA APRN T 461.0 SINUSITIS ACUTE MAXILLARY 11/29/2008 MISBAH MARK, GINA VALENZUELAH 461.0 SINUSITIS ACUTE MAXILLARY 11/29/2008 MISBAH MARK, GINA YAZMIN 461.0 SINUSITIS ACUTE MAXILLARY 11/29/2008 LAURA GAMA APRN T 461.0 SINUSITIS ACUTE MAXILLARY 11/29/2008 MISBAH MARK, GINA VALENZUELAH 461.0 SINUSITIS ACUTE MAXILLARY 11/29/2008 LAURA GAMA APRN T 461.0 SINUSITIS ACUTE MAXILLARY 11/29/2008 JARED ARMIJO 461.0 SINUSITIS ACUTE MAXILLARY 11/29/2008 LANETTE SOFTWARE DEVELOPER MID LEVEL, LAURA T 461.0 SINUSITIS ACUTE MAXILLARY 11/29/2008 LANETTE SOFTWARE DEVELOPER MID LEVEL, LAURA T 461.0 SINUSITIS ACUTE MAXILLARY 12/06/2008 LAURENT DO, ELINOR K 786.2 COUGH 12/06/2008 LANETTE MARK, LAURA T 786.2 COUGH 12/06/2008 LANETTE SOFTWARE DEVELOPER MID LEVEL, LAURA T 786.2 COUGH 12/06/2008 LANETTE SOFTWARE DEVELOPER MID LEVEL, LAURA T 786.2 COUGH 12/06/2008 CRAWLEY SOFTWARE DEVELOPER MID LEVEL, GINA ARCE 786.2 COUGH 12/06/2008 LANETTE SOFTWARE DEVELOPER MID LEVEL, LAURA T 786.2 COUGH 12/06/2008 LAURENT DO, ELINOR K 786.2 COUGH 12/06/2008 786.2 COUGH 12/06/2008 786.2 COUGH 12/06/2008 786.2 COUGH 12/06/2008 786.2 COUGH 12/06/2008 786.2 COUGH 12/06/2008 786.2 COUGH 12/06/2008 786.2 COUGH 12/06/2008 LAURENT DO, ELINOR K 786.2 COUGH 12/06/2008 CRAWLEY SOFTWARE DEVELOPER MID LEVEL, GINA ARCE 786.2 COUGH 12/06/2008 LANETTE MARK, LAURA T 786.2 COUGH 12/06/2008 ADELE STOKES MD 786.2 COUGH 12/06/2008 LANETTE MARK, LAURA T 786.2 COUGH 12/06/2008 ADELE STOKES MD 786.2 COUGH 12/06/2008 LANETTE LAURA MARK T 786.2 COUGH 12/06/2008 786.2 COUGH 12/06/2008 CRAWLEY APRN, IGNA ARCE 786.2 COUGH 12/06/2008 LAURA GAMA APRN T 786.2 COUGH 12/06/2008 LANETTE SOFTWARE DEVELOPER MID LEVEL, LAURA T 786.2 COUGH 12/06/2008 LANETTE SOFTWARE DEVELOPER MID LEVEL, LAURA T 786.2 COUGH 12/06/2008 CRAWLEY DEEDEE, GINA ARCE 786.2 COUGH 12/06/2008 CRAWLEY DEEDEE, GINA ARCE 786.2 COUGH 12/06/2008 LANETTE MARK, LAURA T 786.2 COUGH 12/06/2008 CRAWLEY SOFTWARE DEVELOPER MID LEVEL, GINA VALENZUELAH 786.2 COUGH 12/06/2008 LANETTE DEEDEE, LAURA T 786.2 COUGH 12/06/2008 JARED ARMIJO M 786.2 COUGH 12/06/2008 LANETTE SOFTWARE DEVELOPER MID LEVELLAURA Gonzalez T 786.2 COUGH 12/06/2008 LANETTE SOFTWARE DEVELOPER MID LEVEL, LAURA T 786.2 COUGH 12/19/2008 LAURENT DO, ELINOR K 466.0 ACUTE BRONCHITIS 12/19/2008 LAURENT DO, ELINOR K 848.9 UNSPECIFIED MUSCLE STRAIN 12/19/2008 LAURA GAMA APRN T 466.0 ACUTE BRONCHITIS 12/19/2008 LAURA GAMA APRN T 848.9 UNSPECIFIED MUSCLE STRAIN 12/19/2008 LAURA GAMA APRN T 466.0 ACUTE BRONCHITIS 12/19/2008 LAURA GAMA APRN T 848.9 UNSPECIFIED MUSCLE STRAIN 12/19/2008 LANETTE CORONANLAURA T 466.0 ACUTE BRONCHITIS 12/19/2008 LAURA GAMA APRN T 848.9 UNSPECIFIED MUSCLE STRAIN 12/19/2008 GINA CRAWLEY APRN 466.0 ACUTE BRONCHITIS 12/19/2008 GINA CRAWLEY APRN 848.9 UNSPECIFIED MUSCLE STRAIN 12/19/2008 LAURA GAMA APRN T 466.0 ACUTE BRONCHITIS 12/19/2008 LAURA GAMA APRN T 848.9 UNSPECIFIED MUSCLE STRAIN 12/19/2008 LAURENT DO, ELINOR K 466.0 ACUTE BRONCHITIS 12/19/2008 LAURENT DO, EILNOR K 848.9 UNSPECIFIED MUSCLE STRAIN 12/19/2008 466.0 ACUTE BRONCHITIS 12/19/2008 848.9 UNSPECIFIED MUSCLE STRAIN 12/19/2008 466.0 ACUTE BRONCHITIS 12/19/2008 848.9 UNSPECIFIED MUSCLE STRAIN 12/19/2008 466.0 ACUTE BRONCHITIS 12/19/2008 848.9 UNSPECIFIED MUSCLE STRAIN 12/19/2008 466.0 ACUTE BRONCHITIS 12/19/2008 848.9 UNSPECIFIED MUSCLE STRAIN 12/19/2008 466.0 ACUTE BRONCHITIS 12/19/2008 848.9 UNSPECIFIED MUSCLE STRAIN 12/19/2008 466.0 ACUTE BRONCHITIS 12/19/2008 848.9 UNSPECIFIED MUSCLE STRAIN 12/19/2008 466.0 ACUTE BRONCHITIS 12/19/2008 848.9 UNSPECIFIED MUSCLE STRAIN 12/19/2008 LAURENT DO, ELINOR K 466.0 ACUTE BRONCHITIS 12/19/2008 LAURENT DO, ELINOR K 848.9 UNSPECIFIED MUSCLE STRAIN 12/19/2008 GINA CRAWLEY APRN 466.0 ACUTE BRONCHITIS 12/19/2008 MISBAH CORONAN, GINA VALENZUELAH 848.9 UNSPECIFIED MUSCLE STRAIN 12/19/2008 LAURA GAMA APRN T 466.0 ACUTE BRONCHITIS 12/19/2008 LANETTE MARK, LAURA T 848.9 UNSPECIFIED MUSCLE STRAIN 12/19/2008 ADELE STOKES MD 466.0 ACUTE BRONCHITIS 12/19/2008 ADELE STOKES MD 848.9 UNSPECIFIED MUSCLE STRAIN 12/19/2008 LAURA GAMA APRN T 466.0 ACUTE BRONCHITIS 12/19/2008 LAURA GAMA APRN T 848.9 UNSPECIFIED MUSCLE STRAIN 12/19/2008 ADELE STOKES MD 466.0 ACUTE BRONCHITIS 12/19/2008 ADELE STOKES MD 848.9 UNSPECIFIED MUSCLE STRAIN 12/19/2008 LAURA GAMA APRN T 466.0 ACUTE BRONCHITIS 12/19/2008 LAURA GAMA APRN T 848.9 UNSPECIFIED MUSCLE STRAIN 12/19/2008 466.0 ACUTE BRONCHITIS 12/19/2008 848.9 UNSPECIFIED MUSCLE STRAIN 12/19/2008 MISBAH MARK, GINA VALENZUELAH 466.0 ACUTE BRONCHITIS 12/19/2008 CRAWLEY SOFTWARE DEVELOPER MID LEVEL, GINA VALENZUELAH 848.9 UNSPECIFIED MUSCLE STRAIN 12/19/2008 LANETTE CORONAN, LAURA T 466.0 ACUTE BRONCHITIS 12/19/2008 LANETTE MARK LAURA T 848.9 UNSPECIFIED MUSCLE STRAIN 12/19/2008 LANETTE SOFTWARE DEVELOPER MID LEVEL, LAURA T 466.0 ACUTE BRONCHITIS 12/19/2008 LANETTE MARK LAURA T 848.9 UNSPECIFIED MUSCLE STRAIN 12/19/2008 LANETTE MARK, LAURA T 466.0 ACUTE BRONCHITIS 12/19/2008 LANETTE CORONAN LAURA T 848.9 UNSPECIFIED MUSCLE STRAIN 12/19/2008 CRAWLEY SOFTWARE DEVELOPER MID LEVEL, GINA YAZMIN 466.0 ACUTE BRONCHITIS 12/19/2008 CRAWLEY SOFTWARE DEVELOPER MID LEVEL, IGNA YAZMIN 848.9 UNSPECIFIED MUSCLE STRAIN 12/19/2008 CRAWLEY SOFTWARE DEVELOPER MID LEVEL, GINA YAZMIN 466.0 ACUTE BRONCHITIS 12/19/2008 CRAWLEY SOFTWARE DEVELOPER MID LEVEL, GINA YAZMIN 848.9 UNSPECIFIED MUSCLE STRAIN 12/19/2008 LANETTE MARK, LAURA T 466.0 ACUTE BRONCHITIS 12/19/2008 LANETTE MARK, LAURA T 848.9 UNSPECIFIED MUSCLE STRAIN 12/19/2008 CRAWLEY SOFTWARE DEVELOPER MID LEVEL, GINA YAZMIN 466.0 ACUTE BRONCHITIS 12/19/2008 MISBAH MARK GINA ARCE 848.9 UNSPECIFIED MUSCLE STRAIN 12/19/2008 LAURA GAMA APRN T 466.0 ACUTE BRONCHITIS 12/19/2008 LAURA GAMA APRN T 848.9 UNSPECIFIED MUSCLE STRAIN 12/19/2008 NAVID APPLICATION DEVELOPMENT INTERN, JARED M 466.0 ACUTE BRONCHITIS 12/19/2008 NAVID APPLICATION DEVELOPMENT INTERN, JARED M 848.9 UNSPECIFIED MUSCLE STRAIN 12/19/2008 LAURA GAMA APRN T 466.0 ACUTE BRONCHITIS 12/19/2008 LAURA GAMA APRN T 848.9 UNSPECIFIED MUSCLE STRAIN 12/19/2008 LAURA GAMA APRN T 466.0 ACUTE BRONCHITIS 12/19/2008 LAURA GAMA APRN T 848.9 UNSPECIFIED MUSCLE STRAIN 12/31/2008 LAURENT DO, ELINOR K 786.4 coughing up thick yellow-green sputum (purulent) 12/31/2008 LAURENT DO ELINOR K 786.52 ANTERIOR WALL CHEST PAIN WITH RESPIRATION 12/31/2008 LAURA GAMA APRN 786.4 coughing up thick yellow-green sputum (purulent) 12/31/2008 LAURA GAMA APRN 786.52 ANTERIOR WALL CHEST PAIN WITH RESPIRATION 12/31/2008 LAURA GAMA APRN 786.4 coughing up thick yellow-green sputum (purulent) 12/31/2008 LAURA GAMA APRN T 786.52 ANTERIOR WALL CHEST PAIN WITH RESPIRATION 12/31/2008 LAURA GAMA APRN T 786.4 coughing up thick yellow-green sputum (purulent) 12/31/2008 LAURA GAMA APRN 786.52 ANTERIOR WALL CHEST PAIN WITH RESPIRATION 12/31/2008 MISBAH MARK GINA VALENZUELAH 786.4 coughing up thick yellow-green sputum (purulent) 12/31/2008 MISBAH MARK GINA YAZMIN 786.52 ANTERIOR WALL CHEST PAIN WITH RESPIRATION 12/31/2008 LAURA GAMA APRN T 786.4 coughing up thick yellow-green sputum (purulent) 12/31/2008 LAURA GAMA APRN T 786.52 ANTERIOR WALL CHEST PAIN WITH RESPIRATION 12/31/2008 LAURENT DO, ELINOR K 786.4 coughing up thick yellow-green sputum (purulent) 12/31/2008 LAURENT DO, ELINOR K 786.52 ANTERIOR WALL CHEST PAIN WITH RESPIRATION 12/31/2008 786.4 coughing up thick yellow-green sputum (purulent) 12/31/2008 786.52 ANTERIOR WALL CHEST PAIN WITH RESPIRATION 12/31/2008 786.4 coughing up thick yellow-green sputum (purulent) 12/31/2008 786.52 ANTERIOR WALL CHEST PAIN WITH RESPIRATION 12/31/2008 786.4 coughing up thick yellow-green sputum (purulent) 12/31/2008 786.52 ANTERIOR WALL CHEST PAIN WITH RESPIRATION 12/31/2008 786.4 coughing up thick yellow-green sputum (purulent) 12/31/2008 786.52 ANTERIOR WALL CHEST PAIN WITH RESPIRATION 12/31/2008 786.4 coughing up thick yellow-green sputum (purulent) 12/31/2008 786.52 ANTERIOR WALL CHEST PAIN WITH RESPIRATION 12/31/2008 786.4 coughing up thick yellow-green sputum (purulent) 12/31/2008 786.52 ANTERIOR WALL CHEST PAIN WITH RESPIRATION 12/31/2008 786.4 coughing up thick yellow-green sputum (purulent) 12/31/2008 786.52 ANTERIOR WALL CHEST PAIN WITH RESPIRATION 12/31/2008 ELINOR LAURENT DO K 786.4 coughing up thick yellow-green sputum (purulent) 12/31/2008 ELINOR LAURENT DO K 786.52 ANTERIOR WALL CHEST PAIN WITH RESPIRATION 12/31/2008 GINA CRAWLEY APRN 786.4 coughing up thick yellow-green sputum (purulent) 12/31/2008 GINA CRAWLEY APRN 786.52 ANTERIOR WALL CHEST PAIN WITH RESPIRATION 12/31/2008 LAURA GAMA APRN 786.4 coughing up thick yellow-green sputum (purulent) 12/31/2008 LAURA GAMA APRN 786.52 ANTERIOR WALL CHEST PAIN WITH RESPIRATION 12/31/2008 ADELE STOKES MD 786.4 coughing up thick yellow-green sputum (purulent) 12/31/2008 ADELE STOKES MD 786.52 ANTERIOR WALL CHEST PAIN WITH RESPIRATION 12/31/2008 LAURA GAMA APRN 786.4 coughing up thick yellow-green sputum (purulent) 12/31/2008 LAURA GAMA APRN 786.52 ANTERIOR WALL CHEST PAIN WITH RESPIRATION 12/31/2008 ADELE STOKES MD 786.4 coughing up thick yellow-green sputum (purulent) 12/31/2008 ADELE STOKES MD 786.52 ANTERIOR WALL CHEST PAIN WITH RESPIRATION 12/31/2008 LAURA GAMA APRN 786.4 coughing up thick yellow-green sputum (purulent) 12/31/2008 LAURA GAMA APRN 786.52 ANTERIOR WALL CHEST PAIN WITH RESPIRATION 12/31/2008 786.4 coughing up thick yellow-green sputum (purulent) 12/31/2008 786.52 ANTERIOR WALL CHEST PAIN WITH RESPIRATION 12/31/2008 MISBAH MARK GINA YAZMIN 786.4 coughing up thick yellow-green sputum (purulent) 12/31/2008 GINA CRAWLEY APRN 786.52 ANTERIOR WALL CHEST PAIN WITH RESPIRATION 12/31/2008 LAURA GAMA APRN 786.4 coughing up thick yellow-green sputum (purulent) 12/31/2008 LAURA GAMA APRN 786.52 ANTERIOR WALL CHEST PAIN WITH RESPIRATION 12/31/2008 LAURA GAMA APRN 786.4 coughing up thick yellow-green sputum (purulent) 12/31/2008 LAURA GAMA APRN 786.52 ANTERIOR WALL CHEST PAIN WITH RESPIRATION 12/31/2008 LAURA GAMA APRN 786.4 coughing up thick yellow-green sputum (purulent) 12/31/2008 LAURA GAMA APRN 786.52 ANTERIOR WALL CHEST PAIN WITH RESPIRATION 12/31/2008 GINA CRAWLEY APRN 786.4 coughing up thick yellow-green sputum (purulent) 12/31/2008 GINA CRAWLEY APRN 786.52 ANTERIOR WALL CHEST PAIN WITH RESPIRATION 12/31/2008 GINA CRAWLEY APRN 786.4 coughing up thick yellow-green sputum (purulent) 12/31/2008 GINA CRAWLEY APRN 786.52 ANTERIOR WALL CHEST PAIN WITH RESPIRATION 12/31/2008 LAURA GAMA APRN T 786.4 coughing up thick yellow-green sputum (purulent) 12/31/2008 LAURA GAMA APRN 786.52 ANTERIOR WALL CHEST PAIN WITH RESPIRATION 12/31/2008 GINA CRAWLEY APRN 786.4 coughing up thick yellow-green sputum (purulent) 12/31/2008 GINA CRAWLEY APRN 786.52 ANTERIOR WALL CHEST PAIN WITH RESPIRATION 12/31/2008 LAURA GAMA APRN 786.4 coughing up thick yellow-green sputum (purulent) 12/31/2008 LAURA GAMA APRN 786.52 ANTERIOR WALL CHEST PAIN WITH RESPIRATION 12/31/2008 NAVID APPLICATION DEVELOPMENT INTERN, JARED M 786.4 coughing up thick yellow-green sputum (purulent) 12/31/2008 NAVID APPLICATION DEVELOPMENT INTERN, JARED M 786.52 ANTERIOR WALL CHEST PAIN WITH RESPIRATION 12/31/2008 LAURA GAMA APRN T 786.4 coughing up thick yellow-green sputum (purulent) 12/31/2008 LAURA GAMA APRN 786.52 ANTERIOR WALL CHEST PAIN WITH RESPIRATION 12/31/2008 LAURA GAMA APRN 786.4 coughing up thick yellow-green sputum (purulent) 12/31/2008 LAURA GAMA APRN 786.52 ANTERIOR WALL CHEST PAIN WITH RESPIRATION 01/24/2009 ELINOR LAURENT DO K 271.9 GLUCOSE INTOLERANCE 01/24/2009 LAURA GAMA APRN 271.9 GLUCOSE INTOLERANCE 01/24/2009 LAURA GAMA APRN 271.9 GLUCOSE INTOLERANCE 01/24/2009 LAURA GAMA APRN 271.9 GLUCOSE INTOLERANCE 01/24/2009 GINA CRAWLEY APRN 271.9 GLUCOSE INTOLERANCE 01/24/2009 LAURA GAMA APRN 271.9 GLUCOSE INTOLERANCE 01/24/2009 ELINOR LAURENT DO K 271.9 GLUCOSE INTOLERANCE 01/24/2009 271.9 GLUCOSE INTOLERANCE 01/24/2009 271.9 GLUCOSE INTOLERANCE 01/24/2009 271.9 GLUCOSE INTOLERANCE 01/24/2009 271.9 GLUCOSE INTOLERANCE 01/24/2009 271.9 GLUCOSE INTOLERANCE 01/24/2009 271.9 GLUCOSE INTOLERANCE 01/24/2009 271.9 GLUCOSE INTOLERANCE 01/24/2009 ELINOR LAURENT DO K 271.9 GLUCOSE INTOLERANCE 01/24/2009 GINA CRAWLEY APRN 271.9 GLUCOSE INTOLERANCE 01/24/2009 LAURA GAMA APRN 271.9 GLUCOSE INTOLERANCE 01/24/2009 ADELE STOKES MD 271.9 GLUCOSE INTOLERANCE 01/24/2009 LAURA GAMA APRN 271.9 GLUCOSE INTOLERANCE 01/24/2009 ADELE STOKES MD 271.9 GLUCOSE INTOLERANCE 01/24/2009 LAURA GAMA APRN 271.9 GLUCOSE INTOLERANCE 01/24/2009 271.9 GLUCOSE INTOLERANCE 01/24/2009 GINA CRAWLEY APRN 271.9 GLUCOSE INTOLERANCE 01/24/2009 LANETTE MARK, LAURA T 271.9 GLUCOSE INTOLERANCE 01/24/2009 LANETTE CORONAN, LAURA T 271.9 GLUCOSE INTOLERANCE 01/24/2009 LANETTE CORONAN, LAURA T 271.9 GLUCOSE INTOLERANCE 01/24/2009 CRAWLEY SOFTWARE DEVELOPER MID LEVEL, GINA YAZMIN 271.9 GLUCOSE INTOLERANCE 01/24/2009 CRAWLEY SOFTWARE DEVELOPER MID LEVEL, GINA YAZMIN 271.9 GLUCOSE INTOLERANCE 01/24/2009 LANETTE CORONAN, LAURA T 271.9 GLUCOSE INTOLERANCE 01/24/2009 CRAWLEY SOFTWARE DEVELOPER MID LEVEL, GINA YAZMIN 271.9 GLUCOSE INTOLERANCE 01/24/2009 LANETTE SOFTWARE DEVELOPER MID LEVEL, LAURA T 271.9 GLUCOSE INTOLERANCE 01/24/2009 NAVID DIEGO JARED M 271.9 GLUCOSE INTOLERANCE 01/24/2009 LANETTE MARK, LAURA T 271.9 GLUCOSE INTOLERANCE 01/24/2009 LAURA GAMA APRN T 271.9 GLUCOSE INTOLERANCE 05/11/2009 ELINOR LAURENT DO 600.01 HYPERTROPHY (BENIGN) OF PROSTATE WITH URINARY OBSTRUCTION AND OTHER LOWER URINARY TRACT SYMPTOMS (LUTS) 05/11/2009 ELINOR LAURENT DO 788.43 NOCTURIA 05/11/2009 LAURA GAMA APRN T 600.01 HYPERTROPHY (BENIGN) OF PROSTATE WITH URINARY OBSTRUCTION AND OTHER LOWER URINARY TRACT SYMPTOMS (LUTS) 05/11/2009 LAURA GAMA APRN T 788.43 NOCTURIA 05/11/2009 LAURA GAMA APRN T 600.01 HYPERTROPHY (BENIGN) OF PROSTATE WITH URINARY OBSTRUCTION AND OTHER LOWER URINARY TRACT SYMPTOMS (LUTS) 05/11/2009 LAURA GAMA APRN T 788.43 NOCTURIA 05/11/2009 LAURA GMAA APRN T 600.01 HYPERTROPHY (BENIGN) OF PROSTATE WITH URINARY OBSTRUCTION AND OTHER LOWER URINARY TRACT SYMPTOMS (LUTS) 05/11/2009 LAURA GAMA APRN T 788.43 NOCTURIA 05/11/2009 MISBAH MARK GINA YAZMIN 600.01 HYPERTROPHY (BENIGN) OF PROSTATE WITH URINARY OBSTRUCTION AND OTHER LOWER URINARY TRACT SYMPTOMS (LUTS) 05/11/2009 MISBAH MARK GINA YAZMIN 788.43 NOCTURIA 05/11/2009 LAURA GAMA APRN T 600.01 HYPERTROPHY (BENIGN) OF PROSTATE WITH URINARY OBSTRUCTION AND OTHER LOWER URINARY TRACT SYMPTOMS (LUTS) 05/11/2009 LAURA GAMA APRN T 788.43 NOCTURIA 05/11/2009 ELINOR LAURENT DO 600.01 HYPERTROPHY (BENIGN) OF PROSTATE WITH URINARY OBSTRUCTION AND OTHER LOWER URINARY TRACT SYMPTOMS (LUTS) 05/11/2009 ELINOR LAURENT DO 788.43 NOCTURIA 05/11/2009 600.01 HYPERTROPHY ( BENIGN) OF PROSTATE WITH URINARY OBSTRUCTION AND OTHER LOWER URINARY TRACT SYMPTOMS (LUTS) 05/11/2009 788.43 NOCTURIA 05/11/2009 600.01 HYPERTROPHY ( BENIGN) OF PROSTATE WITH URINARY OBSTRUCTION AND OTHER LOWER URINARY TRACT SYMPTOMS (LUTS) 05/11/2009 788.43 NOCTURIA 05/11/2009 600.01 HYPERTROPHY ( BENIGN) OF PROSTATE WITH URINARY OBSTRUCTION AND OTHER LOWER URINARY TRACT SYMPTOMS (LUTS) 05/11/2009 788.43 NOCTURIA 05/11/2009 600.01 HYPERTROPHY ( BENIGN) OF PROSTATE WITH URINARY OBSTRUCTION AND OTHER LOWER URINARY TRACT SYMPTOMS (LUTS) 05/11/2009 788.43 NOCTURIA 05/11/2009 600.01 HYPERTROPHY ( BENIGN) OF PROSTATE WITH URINARY OBSTRUCTION AND OTHER LOWER URINARY TRACT SYMPTOMS (LUTS) 05/11/2009 788.43 NOCTURIA 05/11/2009 600.01 HYPERTROPHY ( BENIGN) OF PROSTATE WITH URINARY OBSTRUCTION AND OTHER LOWER URINARY TRACT SYMPTOMS (LUTS) 05/11/2009 788.43 NOCTURIA 05/11/2009 600.01 HYPERTROPHY ( BENIGN) OF PROSTATE WITH URINARY OBSTRUCTION AND OTHER LOWER URINARY TRACT SYMPTOMS (LUTS) 05/11/2009 788.43 NOCTURIA 05/11/2009 ELINOR LAURENT DO 600.01 HYPERTROPHY (BENIGN) OF PROSTATE WITH URINARY OBSTRUCTION AND OTHER LOWER URINARY TRACT SYMPTOMS (LUTS) 05/11/2009 ELINOR LAURENT DO 788.43 NOCTURIA 05/11/2009 GINA CRAWLEY APRN 600.01 HYPERTROPHY (BENIGN) OF PROSTATE WITH URINARY OBSTRUCTION AND OTHER LOWER URINARY TRACT SYMPTOMS (LUTS) 05/11/2009 GINA CRAWLEY APRN 788.43 NOCTURIA 05/11/2009 LAURA GAMA APRN 600.01 HYPERTROPHY (BENIGN) OF PROSTATE WITH URINARY OBSTRUCTION AND OTHER LOWER URINARY TRACT SYMPTOMS (LUTS) 05/11/2009 LAURA GAMA APRN 788.43 NOCTURIA 05/11/2009 ADELE STOKES MD 600.01 HYPERTROPHY (BENIGN) OF PROSTATE WITH URINARY OBSTRUCTION AND OTHER LOWER URINARY TRACT SYMPTOMS (LUTS) 05/11/2009 ADELE STOKES MD 788.43 NOCTURIA 05/11/2009 LAURA GAMA APRN 600.01 HYPERTROPHY (BENIGN) OF PROSTATE WITH URINARY OBSTRUCTION AND OTHER LOWER URINARY TRACT SYMPTOMS (LUTS) 05/11/2009 LAURA GAMA APRN 788.43 NOCTURIA 05/11/2009 ADELE STOKES MD 600.01 HYPERTROPHY (BENIGN) OF PROSTATE WITH URINARY OBSTRUCTION AND OTHER LOWER URINARY TRACT SYMPTOMS (LUTS) 05/11/2009 ADELE STOKES MD 788.43 NOCTURIA 05/11/2009 LAURA GAMA APRN 600.01 HYPERTROPHY (BENIGN) OF PROSTATE WITH URINARY OBSTRUCTION AND OTHER LOWER URINARY TRACT SYMPTOMS (LUTS) 05/11/2009 LAURA GAMA APRN 788.43 NOCTURIA 05/11/2009 600.01 HYPERTROPHY ( BENIGN) OF PROSTATE WITH URINARY OBSTRUCTION AND OTHER LOWER URINARY TRACT SYMPTOMS (LUTS) 05/11/2009 788.43 NOCTURIA 05/11/2009 GINA CRAWLEY APRN 600.01 HYPERTROPHY (BENIGN) OF PROSTATE WITH URINARY OBSTRUCTION AND OTHER LOWER URINARY TRACT SYMPTOMS (LUTS) 05/11/2009 GINA CRAWLEY APRN 788.43 NOCTURIA 05/11/2009 LAURA GAMA APRN 600.01 HYPERTROPHY (BENIGN) OF PROSTATE WITH URINARY OBSTRUCTION AND OTHER LOWER URINARY TRACT SYMPTOMS (LUTS) 05/11/2009 LAURA GAMA APRN 788.43 NOCTURIA 05/11/2009 LAURA GAMA APRN 600.01 HYPERTROPHY (BENIGN) OF PROSTATE WITH URINARY OBSTRUCTION AND OTHER LOWER URINARY TRACT SYMPTOMS (LUTS) 05/11/2009 LAURA GAMA APRN 788.43 NOCTURIA 05/11/2009 LAURA GAMA APRN 600.01 HYPERTROPHY (BENIGN) OF PROSTATE WITH URINARY OBSTRUCTION AND OTHER LOWER URINARY TRACT SYMPTOMS (LUTS) 05/11/2009 LAURA GAMA APRN 788.43 NOCTURIA 05/11/2009 GINA CRAWLEY APRN 600.01 HYPERTROPHY (BENIGN) OF PROSTATE WITH URINARY OBSTRUCTION AND OTHER LOWER URINARY TRACT SYMPTOMS (LUTS) 05/11/2009 GINA CRAWLEY APRN 788.43 NOCTURIA 05/11/2009 GINA CRAWLEY APRN 600.01 HYPERTROPHY (BENIGN) OF PROSTATE WITH URINARY OBSTRUCTION AND OTHER LOWER URINARY TRACT SYMPTOMS (LUTS) 05/11/2009 MISBAH MARK GINA ARCE 788.43 NOCTURIA 05/11/2009 LAURA GAMA APRN T 600.01 HYPERTROPHY (BENIGN) OF PROSTATE WITH URINARY OBSTRUCTION AND OTHER LOWER URINARY TRACT SYMPTOMS (LUTS) 05/11/2009 LAURA GAMA APRN T 788.43 NOCTURIA 05/11/2009 CRAWLEYANUP MARK GINA ARCE 600.01 HYPERTROPHY (BENIGN) OF PROSTATE WITH URINARY OBSTRUCTION AND OTHER LOWER URINARY TRACT SYMPTOMS (LUTS) 05/11/2009 MISBAH MARK GINA ARCE 788.43 NOCTURIA 05/11/2009 LAURA GAMA APRN T 600.01 HYPERTROPHY (BENIGN) OF PROSTATE WITH URINARY OBSTRUCTION AND OTHER LOWER URINARY TRACT SYMPTOMS (LUTS) 05/11/2009 LAURA GAMA APRN T 788.43 NOCTURIA 05/11/2009 JARED ARMIJO 600.01 HYPERTROPHY (BENIGN) OF PROSTATE WITH URINARY OBSTRUCTION AND OTHER LOWER URINARY TRACT SYMPTOMS (LUTS) 05/11/2009 JARED ARMIJO 788.43 NOCTURIA 05/11/2009 LAURA GAMA APRN T 600.01 HYPERTROPHY (BENIGN) OF PROSTATE WITH URINARY OBSTRUCTION AND OTHER LOWER URINARY TRACT SYMPTOMS (LUTS) 05/11/2009 LAURA GAMA APRN T 788.43 NOCTURIA 05/11/2009 LAURA GAMA APRN T 600.01 HYPERTROPHY (BENIGN) OF PROSTATE WITH URINARY OBSTRUCTION AND OTHER LOWER URINARY TRACT SYMPTOMS (LUTS) 05/11/2009 LAURA GAMA APRN T 788.43 NOCTURIA 08/23/2009 LAURENT DO, ELINOR K 785.6 LYMPH NODES ENLARGEMENT 08/23/2009 LAURA GAMA APRN T 785.6 LYMPH NODES ENLARGEMENT 08/23/2009 LAURA GAMA APRN T 785.6 LYMPH NODES ENLARGEMENT 08/23/2009 LAURA GAMA APRN T 785.6 LYMPH NODES ENLARGEMENT 08/23/2009 MISBAH MARK GINA VALENZUELAH 785.6 LYMPH NODES ENLARGEMENT 08/23/2009 LAURA GAMA APRN T 785.6 LYMPH NODES ENLARGEMENT 08/23/2009 LAURENT DO, ELINOR K 785.6 LYMPH NODES ENLARGEMENT 08/23/2009 785.6 LYMPH NODES ENLARGEMENT 08/23/2009 785.6 LYMPH NODES ENLARGEMENT 08/23/2009 785.6 LYMPH NODES ENLARGEMENT 08/23/2009 785.6 LYMPH NODES ENLARGEMENT 08/23/2009 785.6 LYMPH NODES ENLARGEMENT 08/23/2009 785.6 LYMPH NODES ENLARGEMENT 08/23/2009 785.6 LYMPH NODES ENLARGEMENT 08/23/2009 LAURENT DO, ELINOR K 785.6 LYMPH NODES ENLARGEMENT 08/23/2009 CRAWLEY SOFTWARE DEVELOPER MID LEVEL, GINA ARCE 785.6 LYMPH NODES ENLARGEMENT 08/23/2009 LAURA GAMA APRN T 785.6 LYMPH NODES ENLARGEMENT 08/23/2009 ADELE STOKES MD 785.6 LYMPH NODES ENLARGEMENT 08/23/2009 LANETET SOFTWARE DEVELOPER MID LEVEL, LAURA T 785.6 LYMPH NODES ENLARGEMENT 08/23/2009 ADELE STOKES MD 785.6 LYMPH NODES ENLARGEMENT 08/23/2009 LANETTE CORONAN, LAURA T 785.6 LYMPH NODES ENLARGEMENT 08/23/2009 785.6 LYMPH NODES ENLARGEMENT 08/23/2009 CRAWLEY SOFTWARE DEVELOPER MID LEVEL, GINA ARCE 785.6 LYMPH NODES ENLARGEMENT 08/23/2009 LAURA GAMA APRN T 785.6 LYMPH NODES ENLARGEMENT 08/23/2009 LANETTE CORONANLAURA T 785.6 LYMPH NODES ENLARGEMENT 08/23/2009 LANETTE SOFTWARE DEVELOPER MID LEVEL, LAURA T 785.6 LYMPH NODES ENLARGEMENT 08/23/2009 CRAWLEY SOFTWARE DEVELOPER MID LEVEL, GINA ARCE 785.6 LYMPH NODES ENLARGEMENT 08/23/2009 CRAWLEY SOFTWARE DEVELOPER MID LEVEL, GINA ARCE 785.6 LYMPH NODES ENLARGEMENT 08/23/2009 LANETTE SOFTWARE DEVELOPER MID LEVEL, LAURA T 785.6 LYMPH NODES ENLARGEMENT 08/23/2009 CRAWLEY SOFTWARE DEVELOPER MID LEVEL, GINA VALENZUELAH 785.6 LYMPH NODES ENLARGEMENT 08/23/2009 LAURA GAMA APRN T 785.6 LYMPH NODES ENLARGEMENT 08/23/2009 JARED ARMIJO 785.6 LYMPH NODES ENLARGEMENT 08/23/2009 LANETTE SOFTWARE DEVELOPER MID LEVELLAURA T 785.6 LYMPH NODES ENLARGEMENT 08/23/2009 LAURA GAMA APRN T 785.6 LYMPH NODES ENLARGEMENT 09/20/2009 LAURENT DO, ELINOR K 528.2 ORAL APHTHAE 09/20/2009 LAURENT DO, ELINOR K 700 CORNS AND CALLOSITIES 09/20/2009 LAURA GAMA APRN 528.2 ORAL APHTHAE 09/20/2009 LAURA GAMA APRN 700 CORNS AND CALLOSITIES 09/20/2009 LAURA GAMA APRN 528.2 ORAL APHTHAE 09/20/2009 LAURA GAMA APRN 700 CORNS AND CALLOSITIES 09/20/2009 LAURA GAMA APRN 528.2 ORAL APHTHAE 09/20/2009 LAURA GAMA APRN 700 CORNS AND CALLOSITIES 09/20/2009 MISBAH MARK GINA ARCE 528.2 ORAL APHTHAE 09/20/2009 MISBAH MARK GINA YAZMIN 700 CORNS AND CALLOSITIES 09/20/2009 LAURA GAMA APRN 528.2 ORAL APHTHAE 09/20/2009 LAURA GAMA APRN 700 CORNS AND CALLOSITIES 09/20/2009 LAURENT DO, ELINOR K 528.2 ORAL APHTHAE 09/20/2009 LAUERNT DO, ELINOR K 700 CORNS AND CALLOSITIES 09/20/2009 528.2 ORAL APHTHAE 09/20/2009 700 CORNS AND CALLOSITIES 09/20/2009 528.2 ORAL APHTHAE 09/20/2009 700 CORNS AND CALLOSITIES 09/20/2009 528.2 ORAL APHTHAE 09/20/2009 700 CORNS AND CALLOSITIES 09/20/2009 528.2 ORAL APHTHAE 09/20/2009 700 CORNS AND CALLOSITIES 09/20/2009 528.2 ORAL APHTHAE 09/20/2009 700 CORNS AND CALLOSITIES 09/20/2009 528.2 ORAL APHTHAE 09/20/2009 700 CORNS AND CALLOSITIES 09/20/2009 528.2 ORAL APHTHAE 09/20/2009 700 CORNS AND CALLOSITIES 09/20/2009 LAURENT DO, ELINOR K 528.2 ORAL APHTHAE 09/20/2009 LAURENT DO, ELINOR K 700 CORNS AND CALLOSITIES 09/20/2009 MISBAH MARK GINA VALENZUELAH 528.2 ORAL APHTHAE 09/20/2009 GINA CRAWLEY APRN 700 CORNS AND CALLOSITIES 09/20/2009 LAURA GAMA APRN 528.2 ORAL APHTHAE 09/20/2009 LAURA GAMA APRN 700 CORNS AND CALLOSITIES 09/20/2009 ADELE STOKES MD 528.2 ORAL APHTHAE 09/20/2009 ADELE STOKES MD 700 CORNS AND CALLOSITIES 09/20/2009 LAURA GAMA APRN 528.2 ORAL APHTHAE 09/20/2009 LAURA GAMA APRN 700 CORNS AND CALLOSITIES 09/20/2009 ADELE STOKES MD 528.2 ORAL APHTHAE 09/20/2009 ADELE STOKES MD 700 CORNS AND CALLOSITIES 09/20/2009 LAURA GAMA APRN 528.2 ORAL APHTHAE 09/20/2009 LAURA GAMA APRN 700 CORNS AND CALLOSITIES 09/20/2009 528.2 ORAL APHTHAE 09/20/2009 700 CORNS AND CALLOSITIES 09/20/2009 MISBAH MARK GINA ARCE 528.2 ORAL APHTHAE 09/20/2009 MISBAH MARK GINA YAZMIN 700 CORNS AND CALLOSITIES 09/20/2009 LAURA GAMA APRN 528.2 ORAL APHTHAE 09/20/2009 LAURA GAMA APRN 700 CORNS AND CALLOSITIES 09/20/2009 LAURA GAMA APRN 528.2 ORAL APHTHAE 09/20/2009 LAURA GAMA APRN 700 CORNS AND CALLOSITIES 09/20/2009 LAURA GAMA APRN 528.2 ORAL APHTHAE 09/20/2009 LAURA GAMA APRN 700 CORNS AND CALLOSITIES 09/20/2009 MISBAH MARK GINA ARCE 528.2 ORAL APHTHAE 09/20/2009 MISBAH MARK GINA YAZMIN 700 CORNS AND CALLOSITIES 09/20/2009 MISBAH MARK GINA ARCE 528.2 ORAL APHTHAE 09/20/2009 MISBAH MARK GINA YAZMIN 700 CORNS AND CALLOSITIES 09/20/2009 LAURA GAMA APRN 528.2 ORAL APHTHAE 09/20/2009 LAURA GAMA APRN 700 CORNS AND CALLOSITIES 09/20/2009 MISBAH MARK GINA ARCE 528.2 ORAL APHTHAE 09/20/2009 MISBAH MARK GINA YAZMIN 700 CORNS AND CALLOSITIES 09/20/2009 LAURA GAMA APRN 528.2 ORAL APHTHAE 09/20/2009 LAURA GAMA APRN 700 CORNS AND CALLOSITIES 09/20/2009 JARED ARMIJO 528.2 ORAL APHTHAE 09/20/2009 NAVID APPLICATION DEVELOPMENT INTERN, JARED M 700 CORNS AND CALLOSITIES 09/20/2009 LAURA GAMA APRN 528.2 ORAL APHTHAE 09/20/2009 LAURA GAMA APRN 700 CORNS AND CALLOSITIES 09/20/2009 LAURA GAMA APRN 528.2 ORAL APHTHAE 09/20/2009 LAURA GAMA APRN Lorena 700 CORNS AND CALLOSITIES 04/30/2010 Ot 041.86 04/30/2010 Ot 250.00 04/30/2010 Ot 272.0 04/30/2010 Ot 285.1 04/30/2010 Ot 295.90 04/30/2010 Ot 296.80 04/30/2010 Ot 300.00 04/30/2010 Ot 477.9 04/30/2010 Ot 532.40 04/30/2010 Ot 600.00 04/30/2010 Ot 780.57 04/30/2010 Ot V58.66 05/07/2010 ANASTASIIA DO, ELINOR K 285.9 ANEMIA UNSPECIFIED 05/07/2010 LAURA GAMA APRN 285.9 ANEMIA UNSPECIFIED 05/07/2010 LAURA GAMA APRN 285.9 ANEMIA UNSPECIFIED 05/07/2010 LAURA GAMA APRN 285.9 ANEMIA UNSPECIFIED 05/07/2010 GINA CRAWLEY APRN 285.9 ANEMIA UNSPECIFIED 05/07/2010 LAURA GAMA APRN 285.9 ANEMIA UNSPECIFIED 05/07/2010 LAURENT DO, ELINOR K 285.9 ANEMIA UNSPECIFIED 05/07/2010 285.9 ANEMIA UNSPECIFIED 05/07/2010 285.9 ANEMIA UNSPECIFIED 05/07/2010 285.9 ANEMIA UNSPECIFIED 05/07/2010 285.9 ANEMIA UNSPECIFIED 05/07/2010 285.9 ANEMIA UNSPECIFIED 05/07/2010 285.9 ANEMIA UNSPECIFIED 05/07/2010 285.9 ANEMIA UNSPECIFIED 05/07/2010 LAURENT DO, ELINOR K 285.9 ANEMIA UNSPECIFIED 05/07/2010 GINA CRAWLEY APRN 285.9 ANEMIA UNSPECIFIED 05/07/2010 LAURA GAMA APRN 285.9 ANEMIA UNSPECIFIED 05/07/2010 ADELE STOKES MD 285.9 ANEMIA UNSPECIFIED 05/07/2010 LAURA GAMA APRN 285.9 ANEMIA UNSPECIFIED 05/07/2010 ADELE STOKES MD 285.9 ANEMIA UNSPECIFIED 05/07/2010 LANETTE SOFTWARE DEVELOPER MID LEVEL, LAURA T 285.9 ANEMIA UNSPECIFIED 05/07/2010 285.9 ANEMIA UNSPECIFIED 05/07/2010 CRAWLEY SOFTWARE DEVELOPER MID LEVEL, GINA ARCE 285.9 ANEMIA UNSPECIFIED 05/07/2010 LANETTE SOFTWARE DEVELOPER MID LEVEL, LAURA T 285.9 ANEMIA UNSPECIFIED 05/07/2010 LANETTE SOFTWARE DEVELOPER MID LEVEL, LAURA T 285.9 ANEMIA UNSPECIFIED 05/07/2010 LANETTE SOFTWARE DEVELOPER MID LEVEL, LAURA T 285.9 ANEMIA UNSPECIFIED 05/07/2010 CRAWLEY SOFTWARE DEVELOPER MID LEVEL, GINA ARCE 285.9 ANEMIA UNSPECIFIED 05/07/2010 CRAWLEY SOFTWARE DEVELOPER MID LEVEL, GINA ARCE 285.9 ANEMIA UNSPECIFIED 05/07/2010 LANETTE SOFTWARE DEVELOPER MID LEVEL, LAURA T 285.9 ANEMIA UNSPECIFIED 05/07/2010 CRAWLEY SOFTWARE DEVELOPER MID LEVEL, GINA ARCE 285.9 ANEMIA UNSPECIFIED 05/07/2010 LANETTE SOFTWARE DEVELOPER MID LEVEL, LAURA T 285.9 ANEMIA UNSPECIFIED 05/07/2010 NAVID CORTEZ JARED Yudi 285.9 ANEMIA UNSPECIFIED 05/07/2010 LANETTE SOFTWARE DEVELOPER MID LEVELLAURA T 285.9 ANEMIA UNSPECIFIED 05/07/2010 LANETTE SOFTWARE DEVELOPER MID LEVELLAURA T 285.9 ANEMIA UNSPECIFIED 05/16/2010 LAURENT DO, ELINOR K 295.70 P SCHIZO AFFECTIVE 05/16/2010 LAURENT DO, ELINOR K 300.00 AN ANXIETY UNSPEC 05/16/2010 LAURA GAMA APRN T 295.70 P SCHIZO AFFECTIVE 05/16/2010 LAURA GAMA APRN T 300.00 AN ANXIETY UNSPEC 05/16/2010 LAURA GAMA APRN T 295.70 P SCHIZO AFFECTIVE 05/16/2010 LAURA GAMA APRN T 300.00 AN ANXIETY UNSPEC 05/16/2010 LAURA GAMA APRN T 295.70 P SCHIZO AFFECTIVE 05/16/2010 LAURA GAMA APRN T 300.00 AN ANXIETY UNSPEC 05/16/2010 MISBAH MARK GINA YAZMIN 295.70 P SCHIZO AFFECTIVE 05/16/2010 CRAWLEY APRN, GINA VALENZUELAH 300.00 AN ANXIETY UNSPEC 05/16/2010 LAURA GAMA APRN T 295.70 P SCHIZO AFFECTIVE 05/16/2010 LAURA GAMA APRN T 300.00 AN ANXIETY UNSPEC 05/16/2010 LAURENT DO, ELINOR K 295.70 P SCHIZO AFFECTIVE 05/16/2010 LAURENT DO, ELINOR K 300.00 AN ANXIETY UNSPEC 05/16/2010 295.70 P SCHIZO AFFECTIVE 05/16/2010 300.00 AN ANXIETY UNSPEC 05/16/2010 295.70 P SCHIZO AFFECTIVE 05/16/2010 300.00 AN ANXIETY UNSPEC 05/16/2010 295.70 P SCHIZO AFFECTIVE 05/16/2010 300.00 AN ANXIETY UNSPEC 05/16/2010 295.70 P SCHIZO AFFECTIVE 05/16/2010 300.00 AN ANXIETY UNSPEC 05/16/2010 295.70 P SCHIZO AFFECTIVE 05/16/2010 300.00 AN ANXIETY UNSPEC 05/16/2010 295.70 P SCHIZO AFFECTIVE 05/16/2010 300.00 AN ANXIETY UNSPEC 05/16/2010 295.70 P SCHIZO AFFECTIVE 05/16/2010 300.00 AN ANXIETY UNSPEC 05/16/2010 LAURENT DO, ELINOR K 295.70 P SCHIZO AFFECTIVE 05/16/2010 LAURENT DO, ELINOR K 300.00 AN ANXIETY UNSPEC 05/16/2010 GINA CRAWLEY APRN 295.70 P SCHIZO AFFECTIVE 05/16/2010 GINA CRAWLEY APRN 300.00 AN ANXIETY UNSPEC 05/16/2010 LAURA GAMA APRN 295.70 P SCHIZO AFFECTIVE 05/16/2010 LAURA GAMA APRN 300.00 AN ANXIETY UNSPEC 05/16/2010 ADELE STOKES MD 295.70 P SCHIZO AFFECTIVE 05/16/2010 ADELE STOKES MD 300.00 AN ANXIETY UNSPEC 05/16/2010 LAURA GAMA APRN 295.70 P SCHIZO AFFECTIVE 05/16/2010 LAURA GAMA APRN 300.00 AN ANXIETY UNSPEC 05/16/2010 ADELE STOKES MD 295.70 P SCHIZO AFFECTIVE 05/16/2010 ADELE STOKES MD 300.00 AN ANXIETY UNSPEC 05/16/2010 LAURA GAMA APRN 295.70 P SCHIZO AFFECTIVE 05/16/2010 LAURA GAMA APRN 300.00 AN ANXIETY UNSPEC 05/16/2010 295.70 P SCHIZO AFFECTIVE 05/16/2010 300.00 AN ANXIETY UNSPEC 05/16/2010 GINA CRAWLEY APRN 295.70 P SCHIZO AFFECTIVE 05/16/2010 GINA CRAWLEY APRN 300.00 AN ANXIETY UNSPEC 05/16/2010 LUARA GAMA APRN 295.70 P SCHIZO AFFECTIVE 05/16/2010 LAURA GAMA APRN 300.00 AN ANXIETY UNSPEC 05/16/2010 LAURA GAMA APRN T 295.70 P SCHIZO AFFECTIVE 05/16/2010 LANETTE MARK LAURA T 300.00 AN ANXIETY UNSPEC 05/16/2010 LANETTE MARK LAURA T 295.70 P SCHIZO AFFECTIVE 05/16/2010 LANETTE MARK LAURA T 300.00 AN ANXIETY UNSPEC 05/16/2010 CRAWLEY SOFTWARE DEVELOPER MID LEVEL, GINA ARCE 295.70 P SCHIZO AFFECTIVE 05/16/2010 CRAWLEY SOFTWARE DEVELOPER MID LEVEL, GINA ARCE 300.00 AN ANXIETY UNSPEC 05/16/2010 CRAWLEY SOFTWARE DEVELOPER MID LEVEL, GINA ARCE 295.70 P SCHIZO AFFECTIVE 05/16/2010 CRAWLEY SOFTWARE DEVELOPER MID LEVEL, GINA ARCE 300.00 AN ANXIETY UNSPEC 05/16/2010 LAURA GAMA APRN T 295.70 P SCHIZO AFFECTIVE 05/16/2010 LAURA GAMA APRN T 300.00 AN ANXIETY UNSPEC 05/16/2010 CRAWLEY SOFTWARE DEVELOPER MID LEVELGINA 295.70 P SCHIZO AFFECTIVE 05/16/2010 CRAWLEY SOFTWARE DEVELOPER MID LEVELGINA 300.00 AN ANXIETY UNSPEC 05/16/2010 LANETTE MARK LAURA T 295.70 P SCHIZO AFFECTIVE 05/16/2010 LANETTE MARK LAURA T 300.00 AN ANXIETY UNSPEC 05/16/2010 [employer]EL[employer] INTERN, JARED M 295.70 P SCHIZO AFFECTIVE 05/16/2010 [employer] APPLICATION DEVELOPMENT INTERN, JARED M 300.00 AN ANXIETY UNSPEC 05/16/2010 LANETTE MARK LAURA T 295.70 P SCHIZO AFFECTIVE 05/16/2010 LANETTE MARK LAURA T 300.00 AN ANXIETY UNSPEC 05/16/2010 LAURA GAMA APRN T 295.70 P SCHIZO AFFECTIVE 05/16/2010 LAURA GAMA APRN T 300.00 AN ANXIETY UNSPEC 06/28/2010 ELINOR LAURENT DO 327.26 SLEEP RELATED 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 ELSEWHERE 06/28/2010 LAURA GAMA APRN 327.26 SLEEP RELATED 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 ELSEWHERE 06/28/2010 LAURA GAMA APRN 327.26 SLEEP RELATED 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 ELSEWHERE 06/28/2010 LAURA GAMA APRN 327.26 SLEEP RELATED 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 ELSEWHERE 06/28/2010 MISBAH MARK GINA ARCE 327.26 SLEEP RELATED 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 ELSEWHERE 06/28/2010 LAURA GAMA APRN 327.26 SLEEP RELATED 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 ELSEWHERE 06/28/2010 ELINOR LAURENT DO 327.26 SLEEP RELATED 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 ELSEWHERE 06/28/2010 327.26 SLEEP RELATED 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 ELSEWHERE 06/28/2010 327.26 SLEEP RELATED 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 ELSEWHERE 06/28/2010 327.26 SLEEP RELATED 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 ELSEWHERE 06/28/2010 327.26 SLEEP RELATED 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 ELSEWHERE 06/28/2010 327.26 SLEEP RELATED 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 ELSEWHERE 06/28/2010 327.26 SLEEP RELATED 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 ELSEWHERE 06/28/2010 327.26 SLEEP RELATED 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 ELSEWHERE 06/28/2010 ELINOR LAURENT DO 327.26 SLEEP RELATED 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 ELSEWHERE 06/28/2010 GINA CRAWLEY APRN 327.26 SLEEP RELATED 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 ELSEWHERE 06/28/2010 LAURA GAMA APRN 327.26 SLEEP RELATED 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 ELSEWHERE 06/28/2010 ADELE STOKES MD 327.26 SLEEP RELATED 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 ELSEWHERE 06/28/2010 LAURA GAMA APRN 327.26 SLEEP RELATED 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 ELSEWHERE 06/28/2010 ADELE STOKES MD 327.26 SLEEP RELATED 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 ELSEWHERE 06/28/2010 LAURA GAMA APRN 327.26 SLEEP RELATED 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 ELSEWHERE 06/28/2010 327.26 SLEEP RELATED 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 ELSEWHERE 06/28/2010 GINA CRAWLEY APRN 327.26 SLEEP RELATED 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 ELSEWHERE 06/28/2010 LAURA GAMA APRN 327.26 SLEEP RELATED 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 ELSEWHERE 06/28/2010 LAURA GAMA APRN 327.26 SLEEP RELATED 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 ELSEWHERE 06/28/2010 LAURA GAMA APRN 327.26 SLEEP RELATED 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 ELSEWHERE 06/28/2010 GINA CRAWELY APRN 327.26 SLEEP RELATED 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 ELSEWHERE 06/28/2010 GINA CRAWLEY APRN 327.26 SLEEP RELATED 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 ELSEWHERE 06/28/2010 LAURA GAMA APRN 327.26 SLEEP RELATED 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 ELSEWHERE 06/28/2010 GINA CRAWLEY APRN 327.26 SLEEP RELATED 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 ELSEWHERE 06/28/2010 LAURA GAMA APRN 327.26 SLEEP RELATED 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 ELSEWHERE 06/28/2010 JARED ARMIJO 327.26 SLEEP RELATED 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 ELSEWHERE 06/28/2010 LAURA GAMA APRN 327.26 SLEEP RELATED 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 ELSEWHERE 06/28/2010 LAURA GAMA APRN 327.26 SLEEP RELATED 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 ELSEWHERE 08/15/2010 ELINOR LAURENT DO 250.02 DIABETES II UNCONTROLLED 08/15/2010 LAURA GAMA APRN 250.02 DIABETES II UNCONTROLLED 08/15/2010 LAURA GAMA APRN 250.02 DIABETES II UNCONTROLLED 08/15/2010 LAURA GAMA APRN 250.02 DIABETES II UNCONTROLLED 08/15/2010 GINA CRAWLEY APRN 250.02 DIABETES II UNCONTROLLED 08/15/2010 LAURA GAMA APRN 250.02 DIABETES II UNCONTROLLED 08/15/2010 ELINOR LAURENT DO 250.02 DIABETES II UNCONTROLLED 08/15/2010 250.02 DIABETES II UNCONTROLLED 08/15/2010 250.02 DIABETES II UNCONTROLLED 08/15/2010 250.02 DIABETES II UNCONTROLLED 08/15/2010 250.02 DIABETES II UNCONTROLLED 08/15/2010 250.02 DIABETES II UNCONTROLLED 08/15/2010 250.02 DIABETES II UNCONTROLLED 08/15/2010 250.02 DIABETES II UNCONTROLLED 08/15/2010 ELINOR LAURENT DO 250.02 DIABETES II UNCONTROLLED 08/15/2010 GINA CRAWLEY APRN 250.02 DIABETES II UNCONTROLLED 08/15/2010 LAURA GAMA APRN 250.02 DIABETES II UNCONTROLLED 08/15/2010 ADELE STOKES MD 250.02 DIABETES II UNCONTROLLED 08/15/2010 LANETTE SOFTWARE DEVELOPER MID LEVEL, LAURA T 250.02 DIABETES II UNCONTROLLED 08/15/2010 ADELE STOKES MD 250.02 DIABETES II UNCONTROLLED 08/15/2010 LANETTE MARK, LAURA T 250.02 DIABETES II UNCONTROLLED 08/15/2010 250.02 DIABETES II UNCONTROLLED 08/15/2010 MISBAH MARK, GINA ARCE 250.02 DIABETES II UNCONTROLLED 08/15/2010 LANETTE MARK, LAURA T 250.02 DIABETES II UNCONTROLLED 08/15/2010 LANETTE MARK, LAURA T 250.02 DIABETES II UNCONTROLLED 08/15/2010 LANETTE MARK, LAURA T 250.02 DIABETES II UNCONTROLLED 08/15/2010 MISBAH MARK, GINA ARCE 250.02 DIABETES II UNCONTROLLED 08/15/2010 MISBAH MARK, GINA ARCE 250.02 DIABETES II UNCONTROLLED 08/15/2010 LANETTE MARK, LAURA Carrillo 250.02 DIABETES II UNCONTROLLED 08/15/2010 MISBAH MARK, GINA ARCE 250.02 DIABETES II UNCONTROLLED 08/15/2010 LANETTE MARK, LAURA T 250.02 DIABETES II UNCONTROLLED 08/15/2010 JARED ARMIJO 250.02 DIABETES II UNCONTROLLED 08/15/2010 LANETTE MARK, LAURA T 250.02 DIABETES II UNCONTROLLED 08/15/2010 LANETTE MARK, LAURA T 250.02 DIABETES II UNCONTROLLED 01/14/2011 ELINOR LAURENT DO 708.9 URTICARIA/HIVES UNSPEC 01/14/2011 LAURA GMAA APRN 708.9 URTICARIA/HIVES UNSPEC 01/14/2011 LAURA GAMA APRN 708.9 URTICARIA/HIVES UNSPEC 01/14/2011 LAURA GAMA APRN 708.9 URTICARIA/HIVES UNSPEC 01/14/2011 MISBAH MARK GINA YAZMIN 708.9 URTICARIA/HIVES UNSPEC 01/14/2011 LAURA GAMA APRN 708.9 URTICARIA/HIVES UNSPEC 01/14/2011 ELINOR LAURENT DO 708.9 URTICARIA/HIVES UNSPEC 01/14/2011 708.9 URTICARIA/ HIVES UNSPEC 01/14/2011 708.9 URTICARIA/ HIVES UNSPEC 01/14/2011 708.9 URTICARIA/ HIVES UNSPEC 01/14/2011 708.9 URTICARIA/ HIVES UNSPEC 01/14/2011 708.9 URTICARIA/ HIVES UNSPEC 01/14/2011 708.9 URTICARIA/ HIVES UNSPEC 01/14/2011 708.9 URTICARIA/ HIVES UNSPEC 01/14/2011 ANASTASIIA DOELINOR K 708.9 URTICARIA/HIVES UNSPEC 01/14/2011 MISBAH MARK GINA VALENZUELAH 708.9 URTICARIA/HIVES UNSPEC 01/14/2011 LAURA GAMA APRN 708.9 URTICARIA/HIVES UNSPEC 01/14/2011 KIKE RAY, ADELE 708.9 URTICARIA/HIVES UNSPEC 01/14/2011 LAURA GAMA APRN 708.9 URTICARIA/HIVES UNSPEC 01/14/2011 KIKE RAY, ADELE 708.9 URTICARIA/HIVES UNSPEC 01/14/2011 LAURA GAMA APRN 708.9 URTICARIA/HIVES UNSPEC 01/14/2011 708.9 URTICARIA/ HIVES UNSPEC 01/14/2011 MISBAH MARK GINA YAZMIN 708.9 URTICARIA/HIVES UNSPEC 01/14/2011 LAURA GAMA APRN 708.9 URTICARIA/HIVES UNSPEC 01/14/2011 LAURA GAMA APRN 708.9 URTICARIA/HIVES UNSPEC 01/14/2011 LAURA GAMA APRN 708.9 URTICARIA/HIVES UNSPEC 01/14/2011 MISBAH MARK GINA VALENZUELAH 708.9 URTICARIA/HIVES UNSPEC 01/14/2011 MISBAH MARK GINA YAZMIN 708.9 URTICARIA/HIVES UNSPEC 01/14/2011 LAURA GAMA APRN 708.9 URTICARIA/HIVES UNSPEC 01/14/2011 MISBAH MARK GINA VALENZUELAH 708.9 URTICARIA/HIVES UNSPEC 01/14/2011 LAURA GMAA APRN 708.9 URTICARIA/HIVES UNSPEC 01/14/2011 JARED ARMIJO 708.9 URTICARIA/HIVES UNSPEC 01/14/2011 LAURA GAMA APRN 708.9 URTICARIA/HIVES UNSPEC 01/14/2011 LAURA GAMA APRN 708.9 URTICARIA/HIVES UNSPEC 04/24/2011 ELINOR LAURENT DO V58.69 MEDICATION HIGH RISK 04/24/2011 LAURA GAMA APRN V58.69 MEDICATION HIGH RISK 04/24/2011 LANETTE SOFTWARE DEVELOPER MID LEVEL, LAURA T V58.69 MEDICATION HIGH RISK 04/24/2011 LANETTE SOFTWARE DEVELOPER MID LEVEL, LAURA T V58.69 MEDICATION HIGH RISK 04/24/2011 CRAWLEY SOFTWARE DEVELOPER MID LEVEL, GINA ARCE V58.69 MEDICATION HIGH RISK 04/24/2011 LANETTE SOFTWARE DEVELOPER MID LEVEL, LAURA T V58.69 MEDICATION HIGH RISK 04/24/2011 ANASTASIIA FLORES ELINOR K V58.69 MEDICATION HIGH RISK 04/24/2011 V58.69 MEDICATION HIGH RISK 04/24/2011 V58.69 MEDICATION HIGH RISK 04/24/2011 V58.69 MEDICATION HIGH RISK 04/24/2011 V58.69 MEDICATION HIGH RISK 04/24/2011 V58.69 MEDICATION HIGH RISK 04/24/2011 V58.69 MEDICATION HIGH RISK 04/24/2011 V58.69 MEDICATION HIGH RISK 04/24/2011 ANASTASIIA FLORESREHANA K V58.69 MEDICATION HIGH RISK 04/24/2011 CRAWLEY SOFTWARE DEVELOPER MID LEVEL, GINA ARCE V58.69 MEDICATION HIGH RISK 04/24/2011 LAURA GAMA APRN T V58.69 MEDICATION HIGH RISK 04/24/2011 ADELE STOKES MD V58.69 MEDICATION HIGH RISK 04/24/2011 LAURA GAMA APRN T V58.69 MEDICATION HIGH RISK 04/24/2011 ADELE STOKES MD V58.69 MEDICATION HIGH RISK 04/24/2011 LANETTE CORONANLAURA T V58.69 MEDICATION HIGH RISK 04/24/2011 V58.69 MEDICATION HIGH RISK 04/24/2011 CRAWLEY SOFTWARE DEVELOPER MID LEVEL, GINA ARCE V58.69 MEDICATION HIGH RISK 04/24/2011 LAURA GAMA APRN T V58.69 MEDICATION HIGH RISK 04/24/2011 LANETTE CORONANLAURA T V58.69 MEDICATION HIGH RISK 04/24/2011 LANETTE SOFTWARE DEVELOPER MID LEVEL, LAURA T V58.69 MEDICATION HIGH RISK 04/24/2011 CRAWLEY SOFTWARE DEVELOPER MID LEVEL, GINA ARCE V58.69 MEDICATION HIGH RISK 04/24/2011 CRAWLEY SOFTWARE DEVELOPER MID LEVEL, GINA ARCE V58.69 MEDICATION HIGH RISK 04/24/2011 LANETTE SOFTWARE DEVELOPER MID LEVEL, LAURA T V58.69 MEDICATION HIGH RISK 04/24/2011 CRAWLEY SOFTWARE DEVELOPER MID LEVEL, GINA ARCE V58.69 MEDICATION HIGH RISK 04/24/2011 LANETTE SOFTWARE DEVELOPER MID LEVELLAURA T V58.69 MEDICATION HIGH RISK 04/24/2011 JARED ARMIJO V58.69 MEDICATION HIGH RISK 04/24/2011 LAURA GAMA APRN V58.69 MEDICATION HIGH RISK 04/24/2011 LAURA GAMA APRN V58.69 MEDICATION HIGH RISK 08/06/2011 ELINOR LAURENT DO 780.79 MALAISE AND FATIGUE 08/06/2011 ELINOR LAURENT DO 799.81 DECREASED LIBIDO 08/06/2011 LAURA GAMA APRN 780.79 MALAISE AND FATIGUE 08/06/2011 LAURA GAMA APRN T 799.81 DECREASED LIBIDO 08/06/2011 LAURA GAMA APRN T 780.79 MALAISE AND FATIGUE 08/06/2011 LAURA GAMA APRN T 799.81 DECREASED LIBIDO 08/06/2011 LAURA GAMA APRN 780.79 MALAISE AND FATIGUE 08/06/2011 LAURA GAMA APRN 799.81 DECREASED LIBIDO 08/06/2011 GINA CRAWLEY APRN 780.79 MALAISE AND FATIGUE 08/06/2011 GINA CRAWLEY APRN 799.81 DECREASED LIBIDO 08/06/2011 LAURA GAMA APRN 780.79 MALAISE AND FATIGUE 08/06/2011 LAURA GAMA APRN 799.81 DECREASED LIBIDO 08/06/2011 ELINOR LAURENT DO 780.79 MALAISE AND FATIGUE 08/06/2011 ELINOR LAURENT DO 799.81 DECREASED LIBIDO 08/06/2011 780.79 MALAISE AND FATIGUE 08/06/2011 799.81 DECREASED LIBIDO 08/06/2011 780.79 MALAISE AND FATIGUE 08/06/2011 799.81 DECREASED LIBIDO 08/06/2011 780.79 MALAISE AND FATIGUE 08/06/2011 799.81 DECREASED LIBIDO 08/06/2011 780.79 MALAISE AND FATIGUE 08/06/2011 799.81 DECREASED LIBIDO 08/06/2011 780.79 MALAISE AND FATIGUE 08/06/2011 799.81 DECREASED LIBIDO 08/06/2011 780.79 MALAISE AND FATIGUE 08/06/2011 799.81 DECREASED LIBIDO 08/06/2011 780.79 MALAISE AND FATIGUE 08/06/2011 799.81 DECREASED LIBIDO 08/06/2011 ELINOR LAURENT DO 780.79 MALAISE AND FATIGUE 08/06/2011 REHAN LAURENT DOA Alix 799.81 DECREASED LIBIDO 08/06/2011 CRAWLEY GINA MARK 780.79 MALAISE AND FATIGUE 08/06/2011 CRAWLEY GINA MARK 799.81 DECREASED LIBIDO 08/06/2011 LAURA GAMA APRN 780.79 MALAISE AND FATIGUE 08/06/2011 LAURA GAMA APRN T 799.81 DECREASED LIBIDO 08/06/2011 ADELE STOKES MD 780.79 MALAISE AND FATIGUE 08/06/2011 ADELE STOKES MD 799.81 DECREASED LIBIDO 08/06/2011 LAURA GAMA APRN 780.79 MALAISE AND FATIGUE 08/06/2011 LAURA GAMA APRN 799.81 DECREASED LIBIDO 08/06/2011 ADELE STOKES MD 780.79 MALAISE AND FATIGUE 08/06/2011 ADELE STOKES MD 799.81 DECREASED LIBIDO 08/06/2011 LAURA GAMA APRN 780.79 MALAISE AND FATIGUE 08/06/2011 LAURA GAMA APRN T 799.81 DECREASED LIBIDO 08/06/2011 780.79 MALAISE AND FATIGUE 08/06/2011 799.81 DECREASED LIBIDO 08/06/2011 CRAWLEYGINA BENTLEY APRN 780.79 MALAISE AND FATIGUE 08/06/2011 GINA CRAWLEY APRN 799.81 DECREASED LIBIDO 08/06/2011 LAURA GAMA APRN T 780.79 MALAISE AND FATIGUE 08/06/2011 LAURA GAMA APRN T 799.81 DECREASED LIBIDO 08/06/2011 LAURA GAMA APRN T 780.79 MALAISE AND FATIGUE 08/06/2011 LANETTE MARK LAURA T 799.81 DECREASED LIBIDO 08/06/2011 LAURA GAMA APRN T 780.79 MALAISE AND FATIGUE 08/06/2011 LAURA GAMA APRN T 799.81 DECREASED LIBIDO 08/06/2011 CRAWLEY GINA MARK 780.79 MALAISE AND FATIGUE 08/06/2011 GINA CRAWLEY APRN 799.81 DECREASED LIBIDO 08/06/2011 GINA CRAWLEY APRN 780.79 MALAISE AND FATIGUE 08/06/2011 GINA CRAWLEY APRN 799.81 DECREASED LIBIDO 08/06/2011 LAURA GAMA APRN T 780.79 MALAISE AND FATIGUE 08/06/2011 LAURA GAMA APRN 799.81 DECREASED LIBIDO 08/06/2011 MISBAH MARK GINA YAZMIN 780.79 MALAISE AND FATIGUE 08/06/2011 CRAWLEY DEEDEE GINA YAZMIN 799.81 DECREASED LIBIDO 08/06/2011 LAURA GAMA APRN 780.79 MALAISE AND FATIGUE 08/06/2011 LAURA GAMA APRN T 799.81 DECREASED LIBIDO 08/06/2011 JARED ARMIJO M 780.79 MALAISE AND FATIGUE 08/06/2011 NAVID APPLICATION DEVELOPMENT INTERN, JARED M 799.81 DECREASED LIBIDO 08/06/2011 LAURA GAMA APRN 780.79 MALAISE AND FATIGUE 08/06/2011 LAURA GAMA APRN 799.81 DECREASED LIBIDO 08/06/2011 LAURA GAMA APRN 780.79 MALAISE AND FATIGUE 08/06/2011 LAURA GAMA APRN 799.81 DECREASED LIBIDO 09/03/2011 Ot 250.00 DIAB RICKY WO COMPL, TYPE II OR UNSPEC TY 09/03/2011 Ot 276.1 HYPOSMOLALITY 09/03/2011 Ot 295.90 SCHIZOPHRENIA NOS-UNSPEC 09/03/2011 Ot 296.80 BIPOLAR DISORDER, UNSPECIFIED 09/03/2011 Ot 305.1 TOBACCO USE DISORDER 09/03/2011 Ot 327.23 OBSTRUCTIVE SLEEP APNEA (ADULT) (PEDIATR 09/03/2011 Ot 401.9 HYPERTENSION NOS 09/03/2011 Ot 593.9 RENAL URETERAL DIS NOS 09/03/2011 Ot 780.60 FEVER, UNSPECIFIED 09/03/2011 Ot V03.82 PROPHYLACTIC VACC AGAINST STREPTOCOCCUS 09/03/2011 Ot V12.71 PERSONAL HISTORY OF PEPTIC ULCER DISEASE 09/05/2011 ELINOR LAURENT DO 276.1 HYPONATREMIA 09/05/2011 LAURA GAMA APRN 276.1 HYPONATREMIA 09/05/2011 LAURA GAMA APRN 276.1 HYPONATREMIA 09/05/2011 LAURA GAMA APRN 276.1 HYPONATREMIA 09/05/2011 GINA CRAWLEY APRN 276.1 HYPONATREMIA 09/05/2011 LAURA GAMA APRN 276.1 HYPONATREMIA 09/05/2011 LAURENT DO, ELINOR K 276.1 HYPONATREMIA 09/05/2011 276.1 HYPONATREMIA 09/05/2011 276.1 HYPONATREMIA 09/05/2011 276.1 HYPONATREMIA 09/05/2011 276.1 HYPONATREMIA 09/05/2011 276.1 HYPONATREMIA 09/05/2011 276.1 HYPONATREMIA 09/05/2011 276.1 HYPONATREMIA 09/05/2011 ANASTASIIA FLORESELINOR K 276.1 HYPONATREMIA 09/05/2011 GINA CRAWLEY APRN 276.1 HYPONATREMIA 09/05/2011 LANETTE MARK LAURA T 276.1 HYPONATREMIA 09/05/2011 ADELE STOKES MD 276.1 HYPONATREMIA 09/05/2011 LAURA GAMA APRN T 276.1 HYPONATREMIA 09/05/2011 ADELE STOKES MD 276.1 HYPONATREMIA 09/05/2011 LAURA GAMA APRN T 276.1 HYPONATREMIA 09/05/2011 276.1 HYPONATREMIA 09/05/2011 GINA CRAWLEY APRN 276.1 HYPONATREMIA 09/05/2011 LANETTE MARK LAURA T 276.1 HYPONATREMIA 09/05/2011 LANETTE MARK LAURA T 276.1 HYPONATREMIA 09/05/2011 LANETTE MARK LAURA T 276.1 HYPONATREMIA 09/05/2011 GINA CRAWLEY APRN 276.1 HYPONATREMIA 09/05/2011 GINA CRAWLEY APRN 276.1 HYPONATREMIA 09/05/2011 LANETTE MARK LAURA T 276.1 HYPONATREMIA 09/05/2011 GINA CRAWLEY APRN 276.1 HYPONATREMIA 09/05/2011 LANETTE MARK LAURA T 276.1 HYPONATREMIA 09/05/2011 JARED ARMIJO 276.1 HYPONATREMIA 09/05/2011 LANETTE MARK LAURA T 276.1 HYPONATREMIA 09/05/2011 LANETTE MARK LAURA T 276.1 HYPONATREMIA 11/27/2011 LAURENT DO, ELINOR K 461.9 SINUSITIS ACUTE 11/27/2011 LAURA GAMA APRN T 461.9 SINUSITIS ACUTE 11/27/2011 LAURA GAMA APRN T 461.9 SINUSITIS ACUTE 11/27/2011 LAURA GAMA APRN T 461.9 SINUSITIS ACUTE 11/27/2011 GINA CRAWLEY APRN 461.9 SINUSITIS ACUTE 11/27/2011 LAURA GAMA APRN 461.9 SINUSITIS ACUTE 11/27/2011 ELINOR LAURENT DO 461.9 SINUSITIS ACUTE 11/27/2011 461.9 SINUSITIS ACUTE 11/27/2011 461.9 SINUSITIS ACUTE 11/27/2011 461.9 SINUSITIS ACUTE 11/27/2011 461.9 SINUSITIS ACUTE 11/27/2011 461.9 SINUSITIS ACUTE 11/27/2011 461.9 SINUSITIS ACUTE 11/27/2011 461.9 SINUSITIS ACUTE 11/27/2011 ELINOR LAURENT DO 461.9 SINUSITIS ACUTE 11/27/2011 GINA CRAWLEY APRN 461.9 SINUSITIS ACUTE 11/27/2011 LAURA GAMA APRN 461.9 SINUSITIS ACUTE 11/27/2011 ADELE STOKES MD 461.9 SINUSITIS ACUTE 11/27/2011 LAURA GAMA APRN 461.9 SINUSITIS ACUTE 11/27/2011 ADELE STOKES MD 461.9 SINUSITIS ACUTE 11/27/2011 LAURA GAMA APRN 461.9 SINUSITIS ACUTE 11/27/2011 461.9 SINUSITIS ACUTE 11/27/2011 GINA CRAWLEY APRN 461.9 SINUSITIS ACUTE 11/27/2011 LAURA GAMA APRN 461.9 SINUSITIS ACUTE 11/27/2011 LAURA GAMA APRN 461.9 SINUSITIS ACUTE 11/27/2011 LAURA GAMA APRN 461.9 SINUSITIS ACUTE 11/27/2011 GINA CRAWLEY APRN 461.9 SINUSITIS ACUTE 11/27/2011 GINA CRAWLEY APRN 461.9 SINUSITIS ACUTE 11/27/2011 LAURA GAMA APRN 461.9 SINUSITIS ACUTE 11/27/2011 GINA CRAWLEY APRN 461.9 SINUSITIS ACUTE 11/27/2011 LAURA GAMA APRN 461.9 SINUSITIS ACUTE 11/27/2011 JARED ARMIJO 461.9 SINUSITIS ACUTE 11/27/2011 LAURA GAMA APRN 461.9 SINUSITIS ACUTE 11/27/2011 LAURA GAMA APRN 461.9 SINUSITIS ACUTE 01/22/2012 ELINOR LAURENT DO 110.1 ONYCHOMYCOSIS 01/22/2012 ELINOR LAURENT DO 719.47 PAIN IN JOINT INVOLVING ANKLE AND FOOT 01/22/2012 LAURA GAMA APRN 110.1 ONYCHOMYCOSIS 01/22/2012 LAURA GAMA APRN 719.47 PAIN IN JOINT INVOLVING ANKLE AND FOOT 01/22/2012 LAURA GAMA APRN 110.1 ONYCHOMYCOSIS 01/22/2012 LAURA GAMA APRN 719.47 PAIN IN JOINT INVOLVING ANKLE AND FOOT 01/22/2012 LAURA GAMA APRN 110.1 ONYCHOMYCOSIS 01/22/2012 LAURA GAMA APRN 719.47 PAIN IN JOINT INVOLVING ANKLE AND FOOT 01/22/2012 CRAWLEYANUP MARK GINA YAZMIN 110.1 ONYCHOMYCOSIS 01/22/2012 CRAWLEYANUP MARK GINA VALENZUELAH 719.47 PAIN IN JOINT INVOLVING ANKLE AND FOOT 01/22/2012 LAURA GAMA APRN 110.1 ONYCHOMYCOSIS 01/22/2012 LAURA GAMA APRN 719.47 PAIN IN JOINT INVOLVING ANKLE AND FOOT 01/22/2012 ELINOR LAURENT DO 110.1 ONYCHOMYCOSIS 01/22/2012 ELINOR LAURENT DO 719.47 PAIN IN JOINT INVOLVING ANKLE AND FOOT 01/22/2012 110.1 ONYCHOMYCOSIS 01/22/2012 719.47 PAIN IN JOINT INVOLVING ANKLE AND FOOT 01/22/2012 110.1 ONYCHOMYCOSIS 01/22/2012 719.47 PAIN IN JOINT INVOLVING ANKLE AND FOOT 01/22/2012 110.1 ONYCHOMYCOSIS 01/22/2012 719.47 PAIN IN JOINT INVOLVING ANKLE AND FOOT 01/22/2012 110.1 ONYCHOMYCOSIS 01/22/2012 719.47 PAIN IN JOINT INVOLVING ANKLE AND FOOT 01/22/2012 110.1 ONYCHOMYCOSIS 01/22/2012 719.47 PAIN IN JOINT INVOLVING ANKLE AND FOOT 01/22/2012 110.1 ONYCHOMYCOSIS 01/22/2012 719.47 PAIN IN JOINT INVOLVING ANKLE AND FOOT 01/22/2012 110.1 ONYCHOMYCOSIS 01/22/2012 719.47 PAIN IN JOINT INVOLVING ANKLE AND FOOT 01/22/2012 ELINOR LAURENT DO K 110.1 ONYCHOMYCOSIS 01/22/2012 ELINOR LAURENT DO 719.47 PAIN IN JOINT INVOLVING ANKLE AND FOOT 01/22/2012 MISBAH MARK GINA YAZMIN 110.1 ONYCHOMYCOSIS 01/22/2012 GINA CRAWLEY APRN 719.47 PAIN IN JOINT INVOLVING ANKLE AND FOOT 01/22/2012 LAURA GAMA APRN 110.1 ONYCHOMYCOSIS 01/22/2012 LAURA GAMA APRN 719.47 PAIN IN JOINT INVOLVING ANKLE AND FOOT 01/22/2012 ADELE STOKES MD 110.1 ONYCHOMYCOSIS 01/22/2012 ADELE STOKES MD 719.47 PAIN IN JOINT INVOLVING ANKLE AND FOOT 01/22/2012 LAURA GAMA APRN 110.1 ONYCHOMYCOSIS 01/22/2012 LAURA GAMA APRN 719.47 PAIN IN JOINT INVOLVING ANKLE AND FOOT 01/22/2012 ADELE STOKES MD 110.1 ONYCHOMYCOSIS 01/22/2012 ADELE STOKES MD 719.47 PAIN IN JOINT INVOLVING ANKLE AND FOOT 01/22/2012 LAURA GAMA APRN 110.1 ONYCHOMYCOSIS 01/22/2012 LAURA GAMA APRN 719.47 PAIN IN JOINT INVOLVING ANKLE AND FOOT 01/22/2012 110.1 ONYCHOMYCOSIS 01/22/2012 719.47 PAIN IN JOINT INVOLVING ANKLE AND FOOT 01/22/2012 GINA CRAWLEY APRN 110.1 ONYCHOMYCOSIS 01/22/2012 GINA CRAWLEY APRN 719.47 PAIN IN JOINT INVOLVING ANKLE AND FOOT 01/22/2012 LAURA GAMA APRN 110.1 ONYCHOMYCOSIS 01/22/2012 LAURA GAMA APRN 719.47 PAIN IN JOINT INVOLVING ANKLE AND FOOT 01/22/2012 LAURA GAMA APRN 110.1 ONYCHOMYCOSIS 01/22/2012 LAURA GAMA APRN 719.47 PAIN IN JOINT INVOLVING ANKLE AND FOOT 01/22/2012 LAURA GAMA APRN 110.1 ONYCHOMYCOSIS 01/22/2012 LAURA GAMA APRN 719.47 PAIN IN JOINT INVOLVING ANKLE AND FOOT 01/22/2012 GINA CRAWLEY APRN 110.1 ONYCHOMYCOSIS 01/22/2012 GINA CRAWLEY APRN 719.47 PAIN IN JOINT INVOLVING ANKLE AND FOOT 01/22/2012 MISBAH DEEDEE GINA ARCE 110.1 ONYCHOMYCOSIS 01/22/2012 MISBAH DEEDEE GINA ARCE 719.47 PAIN IN JOINT INVOLVING ANKLE AND FOOT 01/22/2012 LAURA GAMA APRN 110.1 ONYCHOMYCOSIS 01/22/2012 LAURA GAMA APRN 719.47 PAIN IN JOINT INVOLVING ANKLE AND FOOT 01/22/2012 MISBAH DEEDEE GINA ARCE 110.1 ONYCHOMYCOSIS 01/22/2012 MISBAH DEEDEE GINA ARCE 719.47 PAIN IN JOINT INVOLVING ANKLE AND FOOT 01/22/2012 LAURA GAMA APRN 110.1 ONYCHOMYCOSIS 01/22/2012 LAURA GAMA APRN 719.47 PAIN IN JOINT INVOLVING ANKLE AND FOOT 01/22/2012 JARED ARMIJO 110.1 ONYCHOMYCOSIS 01/22/2012 JARED ARMIJO 719.47 PAIN IN JOINT INVOLVING ANKLE AND FOOT 01/22/2012 LAURA GAMA APRN 110.1 ONYCHOMYCOSIS 01/22/2012 LAURA GAMA APRN 719.47 PAIN IN JOINT INVOLVING ANKLE AND FOOT 01/22/2012 LAURA GAMA APRN 110.1 ONYCHOMYCOSIS 01/22/2012 LAURA GAMA APRN 719.47 PAIN IN JOINT INVOLVING ANKLE AND FOOT 03/23/2012 ELINOR LAURENT DO 719.42 PAIN IN JOINT INVOLVING UPPER ARM 03/23/2012 LAURA GAMA APRN 719.42 PAIN IN JOINT INVOLVING UPPER ARM 03/23/2012 LAURA GAMA APRN 719.42 PAIN IN JOINT INVOLVING UPPER ARM 03/23/2012 LAURA GAMA APRN 719.42 PAIN IN JOINT INVOLVING UPPER ARM 03/23/2012 MISBAH MARK GINA YAZMIN 719.42 PAIN IN JOINT INVOLVING UPPER ARM 03/23/2012 LAURA GAMA APRN 719.42 PAIN IN JOINT INVOLVING UPPER ARM 03/23/2012 ELINOR LAURENT DO 719.42 PAIN IN JOINT INVOLVING UPPER ARM 03/23/2012 719.42 PAIN IN JOINT INVOLVING UPPER ARM 03/23/2012 719.42 PAIN IN JOINT INVOLVING UPPER ARM 03/23/2012 719.42 PAIN IN JOINT INVOLVING UPPER ARM 03/23/2012 719.42 PAIN IN JOINT INVOLVING UPPER ARM 03/23/2012 719.42 PAIN IN JOINT INVOLVING UPPER ARM 03/23/2012 719.42 PAIN IN JOINT INVOLVING UPPER ARM 03/23/2012 719.42 PAIN IN JOINT INVOLVING UPPER ARM 03/23/2012 ELINOR LAURENT DO 719.42 PAIN IN JOINT INVOLVING UPPER ARM 03/23/2012 CRAWLEY DEEDEE GINA VALENZUELAH 719.42 PAIN IN JOINT INVOLVING UPPER ARM 03/23/2012 LAURA GAMA APRN 719.42 PAIN IN JOINT INVOLVING UPPER ARM 03/23/2012 ADELE STOKES MD 719.42 PAIN IN JOINT INVOLVING UPPER ARM 03/23/2012 LAURA GAMA APRN 719.42 PAIN IN JOINT INVOLVING UPPER ARM 03/23/2012 ADELE STOKES MD 719.42 PAIN IN JOINT INVOLVING UPPER ARM 03/23/2012 LAURA GAMA APRN 719.42 PAIN IN JOINT INVOLVING UPPER ARM 03/23/2012 719.42 PAIN IN JOINT INVOLVING UPPER ARM 03/23/2012 MISBAH MARK GINA VALENZUELAH 719.42 PAIN IN JOINT INVOLVING UPPER ARM 03/23/2012 LAURA GAMA APRN 719.42 PAIN IN JOINT INVOLVING UPPER ARM 03/23/2012 LAURA GAMA APRN 719.42 PAIN IN JOINT INVOLVING UPPER ARM 03/23/2012 LAURA GAMA APRN 719.42 PAIN IN JOINT INVOLVING UPPER ARM 03/23/2012 MISBAH MARK GINA VALENZUELAH 719.42 PAIN IN JOINT INVOLVING UPPER ARM 03/23/2012 MISBAH MARK GINA VALENZUELAH 719.42 PAIN IN JOINT INVOLVING UPPER ARM 03/23/2012 LAURA GAMA APRN 719.42 PAIN IN JOINT INVOLVING UPPER ARM 03/23/2012 MISBAH MARK GINA VALENZUELAH 719.42 PAIN IN JOINT INVOLVING UPPER ARM 03/23/2012 LAURA GAMA APRN 719.42 PAIN IN JOINT INVOLVING UPPER ARM 03/23/2012 JARED ARMIJO 719.42 PAIN IN JOINT INVOLVING UPPER ARM 03/23/2012 LAURA GAMA APRN 719.42 PAIN IN JOINT INVOLVING UPPER ARM 03/23/2012 LAURA GAMA APRN 719.42 PAIN IN JOINT INVOLVING UPPER ARM 07/13/2012 ELINOR LAURENT DO 599.70 HEMATURIA 07/13/2012 LAURA GAMA APRN 599.70 HEMATURIA 07/13/2012 LAURA GAMA APRN T 599.70 HEMATURIA 07/13/2012 LAURA GAMA APRN T 599.70 HEMATURIA 07/13/2012 CRAWLEYANUP MARK GINA YAZMIN 599.70 HEMATURIA 07/13/2012 LAURA GAMA APRN 599.70 HEMATURIA 07/13/2012 LAURENT DO ELINOR K 599.70 HEMATURIA 07/13/2012 599.70 HEMATURIA 07/13/2012 599.70 HEMATURIA 07/13/2012 599.70 HEMATURIA 07/13/2012 599.70 HEMATURIA 07/13/2012 599.70 HEMATURIA 07/13/2012 599.70 HEMATURIA 07/13/2012 599.70 HEMATURIA 07/13/2012 LAURENT REHAN FLORESA K 599.70 HEMATURIA 07/13/2012 CRAWLEYANUP MARK GINA YAZMIN 599.70 HEMATURIA 07/13/2012 LAURA GAMA APRN T 599.70 HEMATURIA 07/13/2012 ADELE STOKES MD 599.70 HEMATURIA 07/13/2012 LAURA GAMA APRN T 599.70 HEMATURIA 07/13/2012 ADELE STOKES MD 599.70 HEMATURIA 07/13/2012 LAURA GAMA APRN T 599.70 HEMATURIA 07/13/2012 599.70 HEMATURIA 07/13/2012 MISBAH MARK GINA YAZMIN 599.70 HEMATURIA 07/13/2012 LAURA GAMA APRN 599.70 HEMATURIA 07/13/2012 LAURA GAMA APRN 599.70 HEMATURIA 07/13/2012 LAURA GAMA APRN T 599.70 HEMATURIA 07/13/2012 CRAWLEYANUP MARK GINA YAZMIN 599.70 HEMATURIA 07/13/2012 CRAWLEY APRN, GINA YAZMIN 599.70 HEMATURIA 07/13/2012 LAURA GAMA APRN T 599.70 HEMATURIA 07/13/2012 CRAWLEYANUP MARK GINA YAZMIN 599.70 HEMATURIA 07/13/2012 LAURA GAMA APRN T 599.70 HEMATURIA 07/13/2012 JARED ARMIJO 599.70 HEMATURIA 07/13/2012 LAURA GAMA APRN T 599.70 HEMATURIA 07/13/2012 LAURA GAMA APRN T 599.70 HEMATURIA 07/17/2012 LAURENT DO, ELINOR K 599.71 GROSS HEMATURIA 07/17/2012 LAURA GAMA APRN T 599.71 GROSS HEMATURIA 07/17/2012 LAURA GAMA APRN 599.71 GROSS HEMATURIA 07/17/2012 LAURA GAMA APRN T 599.71 GROSS HEMATURIA 07/17/2012 MISBAH MARK GINA YAZMIN 599.71 GROSS HEMATURIA 07/17/2012 LAURA GAMA APRN T 599.71 GROSS HEMATURIA 07/17/2012 LAURENT DO, ELINOR K 599.71 GROSS HEMATURIA 07/17/2012 599.71 GROSS HEMATURIA 07/17/2012 599.71 GROSS HEMATURIA 07/17/2012 599.71 GROSS HEMATURIA 07/17/2012 599.71 GROSS HEMATURIA 07/17/2012 599.71 GROSS HEMATURIA 07/17/2012 599.71 GROSS HEMATURIA 07/17/2012 599.71 GROSS HEMATURIA 07/17/2012 LAURENT DO, ELINOR K 599.71 GROSS HEMATURIA 07/17/2012 CRAWLEYANUP MARK GINA YAZMIN 599.71 GROSS HEMATURIA 07/17/2012 LAURA GAMA APRN T 599.71 GROSS HEMATURIA 07/17/2012 ADELE STOKES MD 599.71 GROSS HEMATURIA 07/17/2012 LAURA GAMA APRN 599.71 GROSS HEMATURIA 07/17/2012 ADELE STOKES MD 599.71 GROSS HEMATURIA 07/17/2012 LAURA GAMA APRN T 599.71 GROSS HEMATURIA 07/17/2012 599.71 GROSS HEMATURIA 07/17/2012 GINA CRAWLEY APRN 599.71 GROSS HEMATURIA 07/17/2012 LAURA GAMA APRN T 599.71 GROSS HEMATURIA 07/17/2012 LAURA GAMA APRN T 599.71 GROSS HEMATURIA 07/17/2012 LAURA GAMA APRN 599.71 GROSS HEMATURIA 07/17/2012 GINA CRAWLEY APRN 599.71 GROSS HEMATURIA 07/17/2012 GINA CRAWLEY APRN 599.71 GROSS HEMATURIA 07/17/2012 LAURA GAMA APRN T 599.71 GROSS HEMATURIA 07/17/2012 GINA CRAWLEY APRN 599.71 GROSS HEMATURIA 07/17/2012 LAURA GAMA APRN 599.71 GROSS HEMATURIA 07/17/2012 JARED ARMIJO 599.71 GROSS HEMATURIA 07/17/2012 LAURA GAMA APRN 599.71 GROSS HEMATURIA 07/17/2012 LAURA GAMA APRN 599.71 GROSS HEMATURIA 10/03/2012 GINA CRAWLEY APRN 300.02 AN GEN ANXIETY 10/03/2012 LAURA GAMA APRN 300.02 AN GEN ANXIETY 10/03/2012 LAURENT ELINOR FLORES K 300.02 AN GEN ANXIETY 10/03/2012 300.02 AN GEN ANXIETY 10/03/2012 300.02 AN GEN ANXIETY 10/03/2012 300.02 AN GEN ANXIETY 10/03/2012 300.02 AN GEN ANXIETY 10/03/2012 300.02 AN GEN ANXIETY 10/03/2012 300.02 AN GEN ANXIETY 10/03/2012 300.02 AN GEN ANXIETY 10/03/2012 ELINOR LAURENT DO 300.02 AN GEN ANXIETY 10/03/2012 GINA CRAWLEY APRN 300.02 AN GEN ANXIETY 10/03/2012 LAURA GAMA APRN 300.02 AN GEN ANXIETY 10/03/2012 ADELE STOKES MD 300.02 AN GEN ANXIETY 10/03/2012 LAURA GAMA APRN 300.02 AN GEN ANXIETY 10/03/2012 ADELE STOKES MD 300.02 AN GEN ANXIETY 10/03/2012 LAURA GAMA APRN 300.02 AN GEN ANXIETY 10/03/2012 300.02 AN GEN ANXIETY 10/03/2012 GINA CRAWLEY APRN 300.02 AN GEN ANXIETY 10/03/2012 LAURA GAMA APRN 300.02 AN GEN ANXIETY 10/03/2012 LAURA GAMA APRN 300.02 AN GEN ANXIETY 10/03/2012 LAURA GAMA APRN 300.02 AN GEN ANXIETY 10/03/2012 GINA CRAWLEY APRN 300.02 AN GEN ANXIETY 10/03/2012 GINA CRAWLEY APRN 300.02 AN GEN ANXIETY 10/03/2012 LAURA GAMA APRN 300.02 AN GEN ANXIETY 10/03/2012 GINA CRAWLEY APRN 300.02 AN GEN ANXIETY 10/03/2012 LAURA GAMA APRN 300.02 AN GEN ANXIETY 10/03/2012 JARED ARMIJO 300.02 AN GEN ANXIETY 10/03/2012 LAURA GAMA APRN 300.02 AN GEN ANXIETY 10/03/2012 LAURA GAMA APRN 300.02 AN GEN ANXIETY 10/26/2012 LAURA GAMA APRN 553.9 HERNIA UNSPECIFIED SITE 10/26/2012 LAURA GAMA APRN 786.05 SHORTNESS OF BREATH 10/26/2012 ELINOR LAURENT DO K 553.9 HERNIA UNSPECIFIED SITE 10/26/2012 REHAN LAURENT DOA K 786.05 SHORTNESS OF BREATH 10/26/2012 553.9 HERNIA UNSPECIFIED SITE 10/26/2012 786.05 SHORTNESS OF BREATH 10/26/2012 553.9 HERNIA UNSPECIFIED SITE 10/26/2012 786.05 SHORTNESS OF BREATH 10/26/2012 553.9 HERNIA UNSPECIFIED SITE 10/26/2012 786.05 SHORTNESS OF BREATH 10/26/2012 553.9 HERNIA UNSPECIFIED SITE 10/26/2012 786.05 SHORTNESS OF BREATH 10/26/2012 553.9 HERNIA UNSPECIFIED SITE 10/26/2012 786.05 SHORTNESS OF BREATH 10/26/2012 553.9 HERNIA UNSPECIFIED SITE 10/26/2012 786.05 SHORTNESS OF BREATH 10/26/2012 553.9 HERNIA UNSPECIFIED SITE 10/26/2012 786.05 SHORTNESS OF BREATH 10/26/2012 REHAN LAURENT DOA K 553.9 HERNIA UNSPECIFIED SITE 10/26/2012 LAURENT REHAN FLORESA K 786.05 SHORTNESS OF BREATH 10/26/2012 MISBAH MARK GINA ARCE 553.9 HERNIA UNSPECIFIED SITE 10/26/2012 MISBAH MARK GINA ARCE 786.05 SHORTNESS OF BREATH 10/26/2012 LAURA GAMA APRN 553.9 HERNIA UNSPECIFIED SITE 10/26/2012 LAURA GAMA APRN 786.05 SHORTNESS OF BREATH 10/26/2012 ADELE STOKES MD 553.9 HERNIA UNSPECIFIED SITE 10/26/2012 ADELE STOKES MD 786.05 SHORTNESS OF BREATH 10/26/2012 LAURA GAMA APRN 553.9 HERNIA UNSPECIFIED SITE 10/26/2012 LAURA GAMA APRN 786.05 SHORTNESS OF BREATH 10/26/2012 ADELE STOKES MD 553.9 HERNIA UNSPECIFIED SITE 10/26/2012 ADELE STOKES MD 786.05 SHORTNESS OF BREATH 10/26/2012 LANETTE SOFTWARE [employer]EL[employer], LAURA T 553.9 HERNIA UNSPECIFIED SITE 10/26/2012 LANETTE SOFTWARE DEVEL[employer], LAURA T 786.05 SHORTNESS OF BREATH 10/26/2012 553.9 HERNIA UNSPECIFIED SITE 10/26/2012 786.05 SHORTNESS OF BREATH 10/26/2012 CRAWLEY SOFTWARE DEVELOPER [employer], GINA ARCE 553.9 HERNIA UNSPECIFIED SITE 10/26/2012 CRAWLEY SOFTWARE DEVELOPER [employer], GINA ARCE 786.05 SHORTNESS OF BREATH 10/26/2012 LANETTE SOFTWARE DEVEL[employer], LAURA T 553.9 HERNIA UNSPECIFIED SITE 10/26/2012 LANETTE SOFTWARE DEVEL[employer], LAURA T 786.05 SHORTNESS OF BREATH 10/26/2012 LANETTE SOFTWARE DEVEL[employer], LAURA T 553.9 HERNIA UNSPECIFIED SITE 10/26/2012 LANETTE SOFTWARE DEVELOPER [employer], LAURA T 786.05 SHORTNESS OF BREATH 10/26/2012 LANETTE SOFTWARE DEVEL[employer], LAURA T 553.9 HERNIA UNSPECIFIED SITE 10/26/2012 LANETTE SOFTWARE DEVELOPER MID LEVELLAURA T 786.05 SHORTNESS OF BREATH 10/26/2012 CRAWLEY SOFTWARE DEVELOPER [employer], GINA ARCE 553.9 HERNIA UNSPECIFIED SITE 10/26/2012 CRAWLEY SOFTWARE DEVELOPER [employer], GINA ARCE 786.05 SHORTNESS OF BREATH 10/26/2012 CRAWLEY SOFTWARE DEVELOPER [employer], GINA ARCE 553.9 HERNIA UNSPECIFIED SITE 10/26/2012 CRAWLEY SOFTWARE DEVELOPER [employer], GINA ARCE 786.05 SHORTNESS OF BREATH 10/26/2012 LANETTE SOFTWARE DEVEL[employer], LAURA T 553.9 HERNIA UNSPECIFIED SITE 10/26/2012 LANETTE SOFTWARE DEVELOPER MID LEVELLAURA T 786.05 SHORTNESS OF BREATH 10/26/2012 CRAWLEY SOFTWARE DEVELOPER [employer], GINA ARCE 553.9 HERNIA UNSPECIFIED SITE 10/26/2012 CRAWLEY SOFTWARE DEVELOPER [employer], GINA ARCE 786.05 SHORTNESS OF BREATH 10/26/2012 LANETTE SOFTWARE DEVELOPER [employer], LAURA T 553.9 HERNIA UNSPECIFIED SITE 10/26/2012 LANETTE CORONAN, LAURA T 786.05 SHORTNESS OF BREATH 10/26/2012 JARED ARMIJO M 553.9 HERNIA UNSPECIFIED SITE 10/26/2012 JARED ARMIJO M 786.05 SHORTNESS OF BREATH 10/26/2012 LANETTE CORONANLAURA T 553.9 HERNIA UNSPECIFIED SITE 10/26/2012 LANETTE CORONANLAURA T 786.05 SHORTNESS OF BREATH 10/26/2012 LAURA GAMA APRN 553.9 HERNIA UNSPECIFIED SITE 10/26/2012 LAURA GAMA APRN 786.05 SHORTNESS OF BREATH 02/17/2013 729.5 PAIN IN LIMB 02/17/2013 729.5 PAIN IN LIMB 02/17/2013 729.5 PAIN IN LIMB 02/17/2013 LAURENT ELINOR FLORES 729.5 PAIN IN LIMB 02/17/2013 MISBAH MARK GINA ARCE 729.5 PAIN IN LIMB 02/17/2013 LAURA GAMA APRN 729.5 PAIN IN LIMB 02/17/2013 ADELE STOKES MD 729.5 PAIN IN LIMB 02/17/2013 LAURA GAMA APRN 729.5 PAIN IN LIMB 02/17/2013 ADELE STOKES MD 729.5 PAIN IN LIMB 02/17/2013 LAURA GAMA APRN 729.5 PAIN IN LIMB 02/17/2013 729.5 PAIN IN LIMB 02/17/2013 MISBAH MARK GINA VALENZUELAH 729.5 PAIN IN LIMB 02/17/2013 LAURA GAMA APRN 729.5 PAIN IN LIMB 02/17/2013 LAURA GAMA APRN 729.5 PAIN IN LIMB 02/17/2013 LAURA GAMA APRN 729.5 PAIN IN LIMB 02/17/2013 MISBAH MARK GINA VALENZUELAH 729.5 PAIN IN LIMB 02/17/2013 MISBAH MARK GINA VALENZUELAH 729.5 PAIN IN LIMB 02/17/2013 LAURA GAMA APRN 729.5 PAIN IN LIMB 02/17/2013 MISBAH MARK GINA VALENZUELAH 729.5 PAIN IN LIMB 02/17/2013 LAURA GAMA APRN 729.5 PAIN IN LIMB 02/17/2013 JARED ARMIJO 729.5 PAIN IN LIMB 02/17/2013 LAURA GAMA APRN 729.5 PAIN IN LIMB 02/17/2013 LAURA GAMA APRN 729.5 PAIN IN LIMB 07/02/2013 LAURA GAMA APRN V03.82 PPV23 (PNEUMOVAX) DX 07/02/2013 LAURA GAMA APRN V04.81 FLU SHOT 07/02/2013 ADELE STOKES MD V03.82 PPV23 (PNEUMOVAX) DX 07/02/2013 ADELE STOKES MD V04.81 FLU SHOT 07/02/2013 LAURA GAMA APRN V03.82 PPV23 (PNEUMOVAX) DX 07/02/2013 LAURA GAMA APRN V04.81 FLU SHOT 07/02/2013 ADELE STOKES MD V03.82 PPV23 (PNEUMOVAX) DX 07/02/2013 ADELE STOKES MD V04.81 FLU SHOT 07/02/2013 LAURA GAMA APRN V03.82 PPV23 (PNEUMOVAX) DX 07/02/2013 LAURA GAMA APRN V04.81 FLU SHOT 07/02/2013 V03.82 PPV23 ( PNEUMOVAX) DX 07/02/2013 V04.81 FLU SHOT 07/02/2013 GINA CRAWLEY APRN V03.82 PPV23 (PNEUMOVAX) DX 07/02/2013 GINA CRAWLEY APRN V04.81 FLU SHOT 07/02/2013 LAURA GAMA APRN V03.82 PPV23 (PNEUMOVAX) DX 07/02/2013 LAURA GAMA APRN V04.81 FLU SHOT 07/02/2013 LAURA GAMA APRN V03.82 PPV23 (PNEUMOVAX) DX 07/02/2013 LAURA GAMA APRN V04.81 FLU SHOT 07/02/2013 LAURA GAMA APRN V03.82 PPV23 (PNEUMOVAX) DX 07/02/2013 LAURA GAMA APRN V04.81 FLU SHOT 07/02/2013 GINA CRAWLEY APRN V03.82 PPV23 (PNEUMOVAX) DX 07/02/2013 GINA CRAWLEY APRN V04.81 FLU SHOT 07/02/2013 GINA CRAWLEY APRN V03.82 PPV23 (PNEUMOVAX) DX 07/02/2013 GINA CRAWLEY APRN V04.81 FLU SHOT 07/02/2013 LAURA GAMA APRN V03.82 PPV23 (PNEUMOVAX) DX 07/02/2013 LAURA GAMA APRN V04.81 FLU SHOT 07/02/2013 GINA CRAWLEY APRN V03.82 PPV23 (PNEUMOVAX) DX 07/02/2013 GINA CRAWLEY APRN V04.81 FLU SHOT 07/02/2013 LAURA GAMA APRN V03.82 PPV23 (PNEUMOVAX) DX 07/02/2013 LAURA GAMA APRN T V04.81 FLU SHOT 07/02/2013 NAVID APPLICATION DEVELOPMENT INTERN, JARED M V03.82 PPV23 (PNEUMOVAX) DX 07/02/2013 NAVID APPLICATION DEVELOPMENT INTERN, JARED M V04.81 FLU SHOT 07/02/2013 LAURA GAMA APRN V03.82 PPV23 (PNEUMOVAX) DX 07/02/2013 LAURA GAMA APRN V04.81 FLU SHOT 07/02/2013 LAURA GAMA APRN V03.82 PPV23 (PNEUMOVAX) DX 07/02/2013 LAURA GAMA APRN V04.81 FLU SHOT 10/19/2013 KIKE RAY, ADELE 496 COPD 10/19/2013 LAURA GAMA APRN 496 COPD 10/19/2013 496 COPD 10/19/2013 MISBAH MARK, GINA YAZMIN 496 COPD 10/19/2013 LAURA GAMA APRN T 496 COPD 10/19/2013 LANETTE MARK, LAURA T 496 COPD 10/19/2013 LANETTE MARK, LAURA T 496 COPD 10/19/2013 MISBAH MARK, GINA YAZMIN 496 COPD 10/19/2013 MISBAH MARK, GINA YAZMIN 496 COPD 10/19/2013 LANETTE MARK, LAURA T 496 COPD 10/19/2013 MISBAH MARK, GINA VALENZUELAH 496 COPD 10/19/2013 LAURA GAMA APRN T 496 COPD 10/19/2013 JARED ARMIJO M 496 COPD 10/19/2013 LAURA GAMA APRN T 496 COPD 10/19/2013 LANETTE MARK, LAURA T 496 COPD 02/02/2014 LAURA GAMA APRN 477.9 RHINITIS 02/02/2014 LAURA GAMA APRN 786.2 COUGH 02/02/2014 MISBAH MARK, GINA YAZMIN 477.9 RHINITIS 02/02/2014 MISBAH MARK, GINA YAZMIN 786.2 COUGH 02/02/2014 MISBAH MARK, GINA YAZMIN 477.9 RHINITIS 02/02/2014 MISBAH MARK, GINA YAZMIN 786.2 COUGH 02/02/2014 LAURA GAMA APRN T 477.9 RHINITIS 02/02/2014 LAURA GAMA APRN T 786.2 COUGH 02/02/2014 CRAWLEYANUP MARK GINA YAZMIN 477.9 RHINITIS 02/02/2014 CRAWLEY APRN, GINA VALENZUELAH 786.2 COUGH 02/02/2014 LAURA GAMA APRN T 477.9 RHINITIS 02/02/2014 LAURA GAMA APRN T 786.2 COUGH 02/02/2014 JARED ARMIJO M 477.9 RHINITIS 02/02/2014 NAVID CORTEZ, JARED M 786.2 COUGH 02/02/2014 LAURA GAMA APRN T 477.9 RHINITIS 02/02/2014 LAURA GAMA APRN T 786.2 COUGH 02/02/2014 LAURA GAMA APRN T 477.9 RHINITIS 02/02/2014 LAURA GAMA APRN T 786.2 COUGH 03/15/2014 MISBAH MARK GINA YAZMIN 305.1 NONDEPENDENT TOBACCO USE DISORDER 03/15/2014 LAURA GAMA APRN 305.1 NONDEPENDENT TOBACCO USE DISORDER 03/15/2014 MISBAH MARK GINA YAZMIN 305.1 NONDEPENDENT TOBACCO USE DISORDER 03/15/2014 LAURA GAMA APRN 305.1 NONDEPENDENT TOBACCO USE DISORDER 03/15/2014 JARED ARMIJO M 305.1 NONDEPENDENT TOBACCO USE DISORDER 03/15/2014 LAURA GAMA APRN T 305.1 NONDEPENDENT TOBACCO USE DISORDER 03/15/2014 LAURA GAMA APRN 305.1 NONDEPENDENT TOBACCO USE DISORDER 09/23/2014 LAURA GAMA APRN 788.36 NOCTURNAL ENURESIS 09/23/2014 LAURA GAMA APRN 788.36 NOCTURNAL ENURESIS 10/24/2014 LAURA GAMA APRN 302.72 ERECTILE DISORDER 10/27/2014 Ot 327.23 OBSTRUCTIVE SLEEP APNEA (ADULT) (PEDIATR 11/28/2014 LAURA GAMA APRN V16.0 FAMILY HISTORY OF MALIGNANT NEOPLASM OF GASTROINTESTINAL TRACT 11/28/2014 LAURA GAMA APRN V16.42 FAMILY HISTORY OF MALIGNANT NEOPLASM OF PROSTATE 01/09/2015 LEIA LIND DO Ot 211.3 BENIGN NEOPLASM LG BOWEL 01/09/2015 LEIA LIND DO Ot V16.0 FAMILY HX-GI MALIGNANCY 01/09/2015 LEIA LIND DO Ot V76.51 SCREEN MAL NEOP-COLON 09/04/2015 Ot 599.71 09/04/2015 Ot 599.71 09/04/2015 Ot 603.9 09/04/2015 LEIA LIND DO Ot V72.84 09/04/2015 SHAZIA JARRETT Ot E11.65 TYPE 2 DIABETES MELLITUS WITH HYPERGLYCE 09/04/2015 SHAZIA JARRETT Ot J06.9 ACUTE UPPER RESPIRATORY INFECTION, UNSPE 09/04/2015 SHAZIA JARRETT Ot Z79.899 OTHER FDC (CURRENT) DRUG THERAPY 09/07/2015 Ot 599.71 09/07/2015 Ot 599.71 09/07/2015 Ot 603.9 09/07/2015 LEIA LIND DO Ot V72.84 09/07/2015 SHAZIA JARRETT Ot E11.65 TYPE 2 DIABETES MELLITUS WITH HYPERGLYCE 01/11/2016 Ot 599.71 GROSS HEMATURIA 01/11/2016 Ot 599.71 GROSS HEMATURIA 01/11/2016 Ot 603.9 HYDROCELE NOS 01/11/2016 LEIA LIND DO Ot V72.84 EXAM PRE-OPERATIVE NOS Procedures Code [place] [address] UA LONG DIP 07/13/2012 23218 MICRO ALBUMIN-IN HOUSE 07/13/2012 35745 MICROALBUMIN 07/14/2012 36317 ROUTINE VENIPUNCTURE 07/17/2012 60635 UA W/ CULTURE IF INDICATED 07/17/[address] ABDOMEN & PELVIS W/O CONTRAST 07/17/2012 71983 US SCROTUM ULTRASOUND 07/17/2012 36742 PSA FREE AND TOTAL 07/17/2012 90240 ROUTINE VENIPUNCTURE 07/20/2012 63051 MICRO ALBUMIN-IN HOUSE 07/20/2012 36403 CMP 07/20/2012 12000 LIPID PANEL 07/20/2012 0474412 GFR CALC (RESULT ONLY) 07/20/2012 70735 CBC 07/20/2012 17993 TSH 07/20/2012 Urology Rene Nguyen 07/21/2012 14001 A1C (IN-HOUSE) 08/12/2012 02260 PSYCH IND W/MED CK 20 10/26/2012 89952 PULMONARY FUNCTION TEST 10/26/2012 64596 MEASURE BLOOD OXYGEN LEVEL 10/26/2012 52914 SPIROMETRY 11/17/2012 44888 BRONCHODILATION PRE/POST 11/17/2012 39832 RESPIRATORY FLOW VOLUME LOOP 11/17/2012 49225 PSYCH IND W/MED CK 20 11/19/2012 10951 A1C (IN-HOUSE) 12/02/2012 44268 A1C (IN-HOUSE) 07/02/2013 G0008 FLU ADMINISTRATION ( MEDICARE ONLY) 07/02/2013 66565 ROUTINE VENIPUNCTURE 07/06/2013 88581 CBC 07/06/2013 5490408 GFR CALC (RESULT ONLY) 07/06/2013 99043 CMP 07/06/2013 56173 LIPID PANEL 07/06/2013 55180 A1C (IN-HOUSE) 10/11/2013 05421 MICRO ALBUMIN-IN HOUSE 10/11/2013 65051 A1C (IN-HOUSE) 01/14/2014 32312 OXIMETRY 02/02/2014 21788 SLEEP STUDY (HOSPITAL- SLEEP STUDY) 05/18/2014 71506 A1C (IN-HOUSE) 05/18/2014 G0008 FLU ADMINISTRATION ( MEDICARE ONLY) 05/18/2014 60316 ROUTINE VENIPUNCTURE 11/28/2014 06947 PSA TOTAL 11/28/2014 GENERAL S LEIA LIND 11/28/2014 Results There is no data. Encounters ACCT No. Visit Date/Time Discharge Status Pt. Type Provider Facility Loc./Unit Complaint [id number] 11/28/2014 11:31:00 11/28/2014 23:59:59 CLS Outpatient LAURA GAMA APRN [id number] 09/23/2014 11:53:00 09/23/2014 23:59:59 CLS Outpatient LAURA GAMA APRN [id number] 08/26/2014 14:56:00 08/26/2014 23:59:59 CLS Outpatient JARED ARMIJO [id number] 05/24/2014 15:14:00 05/24/2014 23:59:59 CLS Outpatient GINA CRAWLEY APRN [id number] 05/18/2014 15:42:00 05/18/2014 23:59:59 CLS Outpatient LAURA GAMA APRN [id number] 05/18/2014 15:42:00 05/18/2014 23:59:59 CLS Outpatient LAURA GAMA APRN [id number] 03/15/2014 11:56:00 03/15/2014 23:59:59 CLS Outpatient GINA CRAWLEY APRN [id number] 02/10/2014 10:32:00 02/10/2014 23:59:59 CLS Outpatient GINA CRAWLEY APRN [id number] 02/02/2014 10:20:00 02/02/2014 23:59:59 CLS Outpatient LAURA GAMA APRN [id number] 01/14/2014 15:32:00 01/14/2014 23:59:59 CLS Outpatient LAURA GAMA APRN [id number] 01/14/2014 15:32:00 01/14/2014 23:59:59 CLS Outpatient LAURA GAMA APRN [id number] 11/10/2013 09:40:00 11/10/2013 23:59:59 CLS Outpatient GINA CRAWLEY APRN [id number] 11/01/2013 12:47:00 11/01/2013 23:59:59 CLS Outpatient [id number] 10/11/2013 08:42:00 10/11/2013 23:59:59 CLS Outpatient LAURA GAMA APRN [id number] 10/11/2013 08:42:00 10/11/2013 23:59:59 CLS Outpatient ADELE STOKES MD [id number] 07/06/2013 07:54:00 07/06/2013 23:59:59 CLS Outpatient ADELE STOKES MD [id number] 07/02/2013 09:43:00 07/02/2013 23:59:59 CLS Outpatient LAURA GAMA APRN [id number] 07/02/2013 09:43:00 07/02/2013 23:59:59 CLS Outpatient LAURA GAMA APRN [id number] 05/31/2013 12:34:00 05/31/2013 23:59:59 CLS Outpatient GINA CRAWLEY APRN [id number] 04/23/2013 11:39:00 04/23/2013 23:59:59 CLS Outpatient ELINOR LAURENT DO [id number] 12/02/2012 14:15:00 12/02/2012 23:59:59 CLS Outpatient [id number] 11/17/2012 10:22:00 11/17/2012 23:59:59 CLS Outpatient ELINOR LAURENT DO [id number] 10/26/2012 12:01:00 10/26/2012 23:59:59 CLS Outpatient LANETTE SOFTWARE DEVELOPER [employer]EV[employer], LAURA T [id number] 10/26/2012 12:01:00 10/26/2012 23:59:59 CLS Outpatient [id number] 10/03/2012 13:12:00 10/03/2012 23:59:59 CLS Outpatient GINA CRAWLEY APRN [id number] 09/11/2012 10:02:00 09/11/2012 23:59:59 CLS Outpatient LAURA GAMA APRN [id number] 08/12/2012 11:24:00 08/12/2012 23:59:59 CLS Outpatient LAURA GAMA APRN [id number] 07/17/2012 09:54:00 07/17/2012 23:59:59 CLS Outpatient ELINOR LAURENT DO [id number] 07/13/2012 11:01:00 07/13/2012 23:59:59 CLS Outpatient LAURA GAMA APRN [id number] 04/16/2013 08:44:00 Document Registration [id number] 03/17/2013 17:10:00 Document Registration [id number] 02/17/2013 14:18:00 Document Registration [id number] 12/12/2012 12:45:00 Document Registration [id number] 12/02/2012 14:15:00 Document Registration [id number] 09/07/2015 10:11:00 09/07/2015 13:24:00 DIS Emergency SHAZIA JARRETT [facility] ER [id number] 09/04/2015 11:06:00 09/04/2015 13:26:00 DIS Emergency SHAZIA JARRETT [facility] ER [id number] 01/09/2015 13:12:00 01/09/2015 15:30:00 DIS Outpatient LEIA LIND DO [facility] [id number] 01/04/2015 06:07:00 01/04/2015 23:59:59 CLS Outpatient LEIA LIND DO [facility] PRE [id number] 10/26/2014 20:50:00 Document Registration [id number] 07/23/2012 11:58:00 Document Registration [id number] 07/17/2012 11:24:00 Document Registration [id number] 09/01/2011 21:02:00 Document Registration [id number] 04/25/2010 13:02:00 Document Registration
[2017-10-17] MEDS ORDERED: NS IV 1000 ML 1,000 ML IV ONE (23:50)
[2017-10-18 00:09] LABS: BASOPHILS % (AUTO) 0 % (0-10); EOSINOPHILS # (AUTO) 0.1 10^3/uL (0.0-0.3); EOSINOPHILS % (AUTO) 1 % (0-10); HEMATOCRIT 33 % (40-54); HEMOGLOBIN 11.3 G/DL (13.3-17.7); LYMPHOCYTES # (AUTO) 1.9 X 10^3 (1.0-4.0); LYMPHOCYTES % (AUTO) 19 % (12-44); MEAN CORPUSCULAR HEMOGLOBIN 31 PG (25-34); MEAN CORPUSCULAR HGB CONC 34 G/DL (32-36); MEAN CORPUSCULAR VOLUME 89 FL (80-99); MEAN PLATELET VOLUME 9.6 FL (7.4-10.4); MONOCYTES % (AUTO) 10 % (0-12); NEUTROPHILS # (AUTO) 7.1 X 10^3 (1.8-7.8); NEUTROPHILS % (AUTO) 71 % (42-75); PLATELET COUNT 271 10^3/uL (130-400); RED CELL DISTRIBUTION WIDTH 14.4 % (10.0-14.5); WHITE BLOOD COUNT 10.1 10^3/uL (4.3-11.0)
[2017-10-18 00:13] LABS: INR 0.9 (0.8-1.4); PROTHROMBIN TIME PATIENT 12.6 SEC (12.2-14.7)
[2017-10-18 00:21] LABS: ALANINE AMINOTRANSFERASE 15 U/L (0-55); ALKALINE PHOSPHATASE 59 U/L (40-136); BILIRUBIN,TOTAL 0.3 MG/DL (0.1-1.0); BUN/CREATININE RATIO 12; CALCIUM 9.2 MG/DL (8.5-10.1); CARBON DIOXIDE 19 MMOL/L (21-32); CHLORIDE 102 MMOL/L (98-107); CREATININE SERUM 1.29 MG/DL (0.60-1.30); GFR ESTIMATED > 60; GLUCOSE 117 MG/DL (70-105); POTASSIUM 4.4 MMOL/L (3.6-5.0); SODIUM 134 MMOL/L (135-145); TOTAL PROTEIN 7.2 GM/DL (6.4-8.2)
[2017-10-18 01:39] LABS: BILIRUBIN,URINE NEGATIVE (NEGATIVE); CLARITY,URINE CLEAR; COLOR,URINE YELLOW; GLUCOSE, URINE (UA) NEGATIVE (NEGATIVE); KETONES,URINE NEGATIVE (NEGATIVE); LEUKOCYTE ESTERASE ,URINE 3+ (NEGATIVE); NITRITE,URINE POSITIVE (NEGATIVE); PH,URINE 5 (5-9); PROTEIN,URINE 1+ (NEGATIVE); UROBILINOGEN,URINE NORMAL (NORMAL)
[2017-10-18 01:50] LABS: ABG BASE EXCESS -0.1 MMOL/L (-2.5-2.5); ABG OXYGEN SATURATION 91 % (94-100); ABG PCO2 47 MMHG (35-45); ABG PO2 61 MMHG (79-93); ABG TCO2 26.4 MMOL/L (21.0-31.0)
[2017-10-18 01:54] LABS: ABG PH 7.35 (7.37-7.43); ALLENS TEST YES-POS; INSPIRED O2 21%; PATIENT TEMP 98.9; VENTILATOR NO
[2017-10-18 02:00] LABS: BACTERIA,URINE LARGE /HPF; WBC,URINE 25-50 /HPF
[2017-10-18] MEDS ORDERED: cefTRIAXone INJECTION 1,000 MG in NS (IVPB) 50 ML IV ONE (02:15)
--- NOTE | 2017-10-18 02:31 | ED General ---
General Chief Complaint: Altered Mental Status Stated Complaint: FREQUENT FALLS Nursing Triage Note: PT BROUGHT IN BY FAMILY WITH C/O ALTERED MENTAL STATUS AND FREQUENT FALLS. REPORTS THAT OVER THE LAST SEVERAL DAYS PT HAS BEEN FALLING AND HAS BEEN INCONTINENT. ALSO REPORTS THAT PT IS INSULIN DEPENDENT DIABETIC AND HAS NOT BEEN CHECKING HIS BLOOD SUGAR OR TAKING HIS INSULIN. Nursing Sepsis Screen: No Definite Risk Source of Information: Patient Exam Limitations: No Limitations History of Present Illness Date Seen by Provider: Oct 17, 2017 Time Seen by Provider: 23:28 Initial Comments This 46-year-old man is brought to the emergency room by his family for altered mental status and weakness. Patient has had multiple falls and recent days. Symptoms started 4 days ago when he fell into a nightstand. He has now been unable to safely walk. He has had incontinence as well. He is able to answer questions appropriately but is extremely somnolent. Patient takes multiple sedating medications. Allergies and Home Medications Allergies Coded Allergies: No Known Drug Allergies (Unverified , 04/25/10) Home Medications Albuterol Sulfate 1 Puff Puff, 1 PUFF IH Q4H PRN for SHORTNESS OF BREATH, ( Reported) MDI Alprazolam 1 Mg Tablet, 0.5-1 MG PO TID TAKE 1 TAB BY MOUTH TWICE A DAY AND 1/2 TAB EVERY NIGHT AT BEDTIME Prescribed by: ALICIA LADD on 10/18/17 0549 Amlodipine Besylate 5 Mg Tablet, 5 MG PO DAILY, (Reported) Cephalexin 500 Mg Capsule, 500 MG PO TID Prescribed by: RADHA RAM on 10/19/17 0754 Esomeprazole Magnesium 40 Mg Capsule.dr, 40 MG PO DAILY, (Reported) Ezetimibe 10 Mg Tablet, 10 MG PO HS, (Reported) Fluoxetine Hcl 40 Mg Capsule, 1 EACH PO DAILY, (Reported) Lamotrigine 150 Mg Tablet, 300 MG PO HS, (Reported) Metformin HCl 1,000 Mg Tablet, 1,000 MG PO BID, (Reported) Metoprolol Tartrate 50 Mg Tablet, 50 MG PO BID, (Reported) Montelukast Sodium 10 Mg Tab, 10 MG PO DAILY, (Reported) Simvastatin 40 Mg Tablet, 40 MG PO HS, (Reported) Spironolactone 25 Mg Tablet, 25 MG PO DAILY, (Reported) Tamsulosin HCl 0.4 Mg Cap.er.24h, 0.8 MG PO DAILY, (Reported) Valsartan 320 Mg Tablet, 320 MG PO DAILY, (Reported) Constitutional: see HPI, weakness EENTM: no symptoms reported Respiratory: no symptoms reported Cardiovascular: no symptoms reported Gastrointestinal: no symptoms reported Genitourinary: see HPI Musculoskeletal: no symptoms reported Skin: no symptoms reported Psychiatric/Neurological: See HPI Hematologic/Lymphatic: No Symptoms Reported Past Rmqdwdk-Ozmjyw-Ysyfxj Hx Patient Social History Alcohol Use: Occasionally Uses Recreational Drug Use: No Smoking Status: Former Smoker Type Used: Cigarettes 2nd Hand Smoke Exposure: No Recent Foreign Travel: No Contact w/Someone Who Travel: No Recent Infectious Disease Expo: No Recent Hopitalizations: No Immunizations Up To Date Date of Pneumonia Vaccine: Jul 25, 2014 Date of Influenza Vaccine: May 25, 2015 Surgeries History of Surgeries: Yes (VASECTOMY,GANGLION CYST REMOVED,ACL REPAIR) Respiratory History of Respiratory Disorde: Yes (ASTHMA) Cardiovascular History of Cardiac Disorders: No Neurological History of Neurological Disord: No Reproductive System Hx Reproductive Disorders: No Genitourinary History of Genitourinary Disor: No Gastrointestinal History of Gastrointestinal Di: No Musculoskeletal History of Musculoskeletal Dis: No Endocrine History of Endocrine Disorders: Yes Endocrine Disorders: Diabetes, Insulin dep HEENT History of HEENT Disorders: No Cancer History of Cancer: No Psychosocial History of Psychiatric Problem: No (BIPOLAR) Blood Transfusions History of Blood Disorders: No Family Medical History Significant Family History: No Pertinent Family Hx Physical Exam Vital Signs Vital Signs - First Documented 10/17/17 10/18/17 23:45 03:28 Temp 98.9 Pulse 73 Resp 14 B/P (MAP) 108/67 (81) Pulse Ox 96 O2 Delivery Room Air O2 Flow Rate 6.00 Capillary Refill : Less Than 3 Seconds General Appearance: WD/WN HEENT: PERRL/EOMI, Normal ENT Inspection Neck: Normal Inspection Respiratory: Lungs Clear, Normal Breath Sounds, No Accessory Muscle Use, No Respiratory Distress Cardiovascular: Regular Rate, Rhythm, No Edema, No Murmur, Normal Peripheral Pulses Gastrointestinal: Normal Bowel Sounds, No Organomegaly, Non Tender, Soft Back: Normal Inspection Extremity: Normal Inspection, No Pedal Edema Neurologic/Psychiatric: Oriented x3, dust box worker II-XII Norm as Tested, Other ( Decreased alertness, generalized weakness) Skin: Normal Color, Warm/Dry Focused Exam Evaluation Lactate Level Lactic Acid Level Progress/Results/Core Measures Suspected Sepsis Recent Fever Within 48 Hours: No Infection Criteria Present: None New/Unexplained Altered Menta: No Sepsis Screen: No Definite Risk Sepsis Diagnosis: SIRS Temperature:98.9 Pulse: 73 Respiratory Rate: 14 Laboratory Tests 10/19/17 05:40: White Blood Count 6.7 Blood Pressure 108 /67 Mean: 81 Laboratory Tests 10/19/17 05:40: Platelet Count 283 Results/Orders Lab Results My Orders Orders - NELDA LYNN MD Iv Infusion <= First Hr Ed (10/17/17 ) Medications Given in ED Vital Signs/I&O Capillary Refill : Less Than 3 Seconds Blood Pressure Mean: 81 Progress Note : Progress Note Because of altered mental status and frequent falls, CT head was performed. Workup was relatively unremarkable except for discovery of urinary tract infection. Patient was hydrated and treated with Rocephin. He was admitted for further evaluation. I suspect part of his issues medication effect as he is on numerous sedating medications. Diagnostic Imaging Diagonstic Imaging: CT Plain Films/CT/US/NM/MRI: c-spine, head Comments CT head and C-spine viewed by me and report reviewed. No acute intracranial abnormality or injury. Focal deep white matter hypodensity in the left centrum semiovale, one of which has developed in the interval since prior exam. Findings may represent demyelinating lesions. Cervical spine shows no evidence of acute injury. Departure Communication (Admissions) Time/Spoke to Admitting Phy: 02:[address] Ram Impression Impression: Primary Impression: Altered mental status Qualified Codes: R41.82 - Altered mental status, unspecified Additional Impressions: Urinary tract infection Qualified Codes: N39.0 - Urinary tract infection, site not specified Generalized weakness Frequent falls Disposition: ADMITTED INPATIENT Condition: Stable Admissions Decision to Admit Reason: Admit from ER (General) Decision to Admit/Date: Oct 18, 2017 Time/Decision to Admit Time: 23:40 Departure-Patient Inst. Referrals: [facility] (PCP/Family) Primary Care Physician Scripts Cephalexin (Cephalexin) 500 Mg Capsule 500 MG PO TID for 7 Days, #21 CAP 0 Refills Prov: RADHA RAM MD 10/19/17 Alprazolam (Alprazolam) 1 Mg Tablet 0.5-1 MG PO TID, #30 TAB TAKE 1 TAB BY MOUTH TWICE A DAY AND 1/2 TAB EVERY NIGHT AT BEDTIME Prov: RADHA RAM MD 10/18/17 Copy Copies To 1: ELINOR LAURENT JOSHUA T MD Oct 18, 2017 02:31
--- OUTSIDE RECORDS SUMMARY | 2017-10-18 03:23 | XMS REPORT | Continuity of Care Document ---
Author Author [facility] [place] [facility] Address Unknown Phone Unavailable Allergies Active Description Code Type Severity Reaction Onset Reported/Identified Relationship to Patient Clinical Status Yes No Known Drug Allergies [id number] Drug Allergy Unknown N/A 04/25/2010 Medications There [...] 250.00 DIABETES MELLITUS TYPE 2 04/12/2008 MISBAH REIMBURSEMENT DIRECTOR, GINA YAZMIN 272.4 HYPERLIPIDEMIA HYPERLIPOPROTEINEMIAS (Old Classification) [...] T 401.1 ESSENTIAL HYPERTENSION BENIGN 04/12/2008 NAVID PROOFREADER, JARED M 250.00 DIABETES MELLITUS TYPE 2 04/12/2008 NAVID PROOFREADER, JARED M 272.4 HYPERLIPIDEMIA HYPERLIPOPROTEINEMIAS (Old Classification) 04/12/2008 NAVID PROOFREADER, JARED M 401.1 ESSENTIAL HYPERTENSION BENIGN 04/12/2008 [...] T 272.0 HYPERLIPIDEMIA FAMILIAL HYPERCHOLESTEROLEMIA 08/29/2008 NAVID PROOFREADERJARED 272.0 HYPERLIPIDEMIA FAMILIAL HYPERCHOLESTEROLEMIA 08/29/2008 LAURA GAMA [...] Levels - ALT (SGPT) Elevated 09/13/2008 CRAWLEY REIMBURSEMENT DIRECTOR, GINA ARCE 790.4 Serum Enzyme Levels - ALT (SGPT) Elevated 09/13/2008 CRAWLEY APRN, GINA VALENZUELAH 790.4 Serum Enzyme Levels [...] ARMIJO 461.0 SINUSITIS ACUTE MAXILLARY 11/29/2008 LANETTE REIMBURSEMENT DIRECTOR, LAURA T 461.0 SINUSITIS ACUTE MAXILLARY 11/29/2008 LANETTE REIMBURSEMENT DIRECTOR, LAURA T 461.0 SINUSITIS ACUTE MAXILLARY 12/06/2008 LAURENT DO, ELINOR K 786.2 COUGH 12/06/2008 LANETTE MARK, LAURA T 786.2 COUGH 12/06/2008 LANETTE REIMBURSEMENT DIRECTOR, LAURA T 786.2 COUGH 12/06/2008 LANETTE REIMBURSEMENT DIRECTOR, LAURA T 786.2 COUGH 12/06/2008 CRAWLEY REIMBURSEMENT DIRECTOR, GINA ARCE 786.2 COUGH 12/06/2008 LANETTE REIMBURSEMENT DIRECTOR, LAURA T 786.2 COUGH 12/06/2008 LAURENT DO, ELINOR K 786.2 COUGH 12/06/2008 786.2 COUGH 12/06/2008 786.2 COUGH 12/06/2008 786.2 COUGH 12/06/2008 786.2 COUGH 12/06/2008 786.2 COUGH 12/06/2008 786.2 COUGH 12/06/2008 786.2 COUGH 12/06/2008 LAURENT DO, ELINOR K 786.2 COUGH 12/06/2008 CRAWLEY REIMBURSEMENT DIRECTOR, GINA ARCE 786.2 COUGH 12/06/2008 LANETTE MARK, LAURA T 786.2 COUGH 12/06/2008 ADELE STOKES MD 786.2 COUGH 12/06/2008 LANETTE MARK, LAURA T 786.2 COUGH 12/06/2008 ADELE STOKES MD 786.2 COUGH 12/06/2008 LANETTE LAURA MARK T 786.2 COUGH 12/06/2008 786.2 COUGH 12/06/2008 CRAWLEY APRN, GINA ARCE 786.2 COUGH 12/06/2008 LAURA GAMA APRN T 786.2 COUGH 12/06/2008 LANETTE REIMBURSEMENT DIRECTOR, LAURA T 786.2 COUGH 12/06/2008 LANETTE REIMBURSEMENT DIRECTOR, LAURA T 786.2 COUGH 12/06/2008 CRAWLEY DEEDEE, GINA ARCE 786.2 COUGH 12/06/2008 CRAWLEY DEEDEE, GINA ARCE 786.2 COUGH 12/06/2008 LANETTE MARK, LAURA T 786.2 COUGH 12/06/2008 CRAWLEY REIMBURSEMENT DIRECTOR, GINA VALENZUELAH 786.2 COUGH 12/06/2008 LANETTE DEEDEE, LAURA T 786.2 COUGH 12/06/2008 JARED ARMIJO M 786.2 COUGH 12/06/2008 LANETTE REIMBURSEMENT DIRECTORLAURA Gonzalez T 786.2 COUGH 12/06/2008 LANETTE REIMBURSEMENT DIRECTOR, LAURA T 786.2 COUGH 12/19/2008 LAURENT DO, [...] ELINOR K 848.9 UNSPECIFIED MUSCLE STRAIN 12/19/2008 466.0 [...] GINA VALENZUELAH 466.0 ACUTE BRONCHITIS 12/19/2008 CRAWLEY REIMBURSEMENT DIRECTOR, GINA VALENZUELAH 848.9 UNSPECIFIED MUSCLE STRAIN 12/19/2008 LANETTE CORONAN, LAURA T 466.0 ACUTE BRONCHITIS 12/19/2008 LANETTE MARK LAURA T 848.9 UNSPECIFIED MUSCLE STRAIN 12/19/2008 LANETTE REIMBURSEMENT DIRECTOR, LAURA T 466.0 ACUTE BRONCHITIS 12/19/2008 LANETTE MARK LAURA T 848.9 UNSPECIFIED MUSCLE STRAIN 12/19/2008 LANETTE MARK, LAURA T 466.0 ACUTE BRONCHITIS 12/19/2008 LANETTE CORONAN LAURA T 848.9 UNSPECIFIED MUSCLE STRAIN 12/19/2008 CRAWLEY REIMBURSEMENT DIRECTOR, GINA YAZMIN 466.0 ACUTE BRONCHITIS 12/19/2008 CRAWLEY REIMBURSEMENT DIRECTOR, GINA YAZMIN 848.9 UNSPECIFIED MUSCLE STRAIN 12/19/2008 CRAWLEY REIMBURSEMENT DIRECTOR, GINA YAZMIN 466.0 ACUTE BRONCHITIS 12/19/2008 CRAWLEY REIMBURSEMENT DIRECTOR, GINA YAZMIN 848.9 UNSPECIFIED MUSCLE STRAIN 12/19/2008 LANETTE MARK, LAURA T 466.0 ACUTE BRONCHITIS 12/19/2008 LANETTE MARK, LAURA T 848.9 UNSPECIFIED MUSCLE STRAIN 12/19/2008 CRAWLEY REIMBURSEMENT DIRECTOR, GINA YAZMIN 466.0 ACUTE BRONCHITIS 12/19/2008 MISBAH MARK GINA ARCE 848.9 UNSPECIFIED MUSCLE STRAIN 12/19/2008 LAURA GAMA APRN T 466.0 ACUTE BRONCHITIS 12/19/2008 LAURA GAMA APRN T 848.9 UNSPECIFIED MUSCLE STRAIN 12/19/2008 NAVID PROOFREADER, JARED M 466.0 ACUTE BRONCHITIS 12/19/2008 NAVID PROOFREADER, JARED M 848.9 UNSPECIFIED MUSCLE STRAIN 12/19/2008 [...] WALL CHEST PAIN WITH RESPIRATION 12/31/2008 NAVID PROOFREADER, JARED M 786.4 coughing up thick yellow-green sputum (purulent) 12/31/2008 NAVID PROOFREADER, JARED M 786.52 ANTERIOR WALL CHEST PAIN [...] CRAWLEY APRN 271.9 GLUCOSE INTOLERANCE 01/24/2009 LAURA GAAM APRN 271.9 GLUCOSE INTOLERANCE 01/24/2009 ADELE STOKES [...] LAURA T 271.9 GLUCOSE INTOLERANCE 01/24/2009 CRAWLEY REIMBURSEMENT DIRECTOR, GINA YAZMIN 271.9 GLUCOSE INTOLERANCE 01/24/2009 CRAWLEY REIMBURSEMENT DIRECTOR, GINA YAZMIN 271.9 GLUCOSE INTOLERANCE 01/24/2009 LANETTE CORONAN, LAURA T 271.9 GLUCOSE INTOLERANCE 01/24/2009 CRAWLEY REIMBURSEMENT DIRECTOR, GINA YAZMIN 271.9 GLUCOSE INTOLERANCE 01/24/2009 LANETTE REIMBURSEMENT DIRECTOR, LAURA T 271.9 GLUCOSE INTOLERANCE 01/24/2009 NAVID [...] K 785.6 LYMPH NODES ENLARGEMENT 08/23/2009 CRAWLEY REIMBURSEMENT DIRECTOR, GINA ARCE 785.6 LYMPH NODES ENLARGEMENT 08/23/2009 LAURA GAMA APRN T 785.6 LYMPH NODES ENLARGEMENT 08/23/2009 ADELE STOKES MD 785.6 LYMPH NODES ENLARGEMENT 08/23/2009 LANETTE REIMBURSEMENT DIRECTOR, LAURA T 785.6 LYMPH NODES ENLARGEMENT 08/23/2009 ADELE STOKES MD 785.6 LYMPH NODES ENLARGEMENT 08/23/2009 LANETTE CORONAN, LAURA T 785.6 LYMPH NODES ENLARGEMENT 08/23/2009 785.6 LYMPH NODES ENLARGEMENT 08/23/2009 CRAWLEY REIMBURSEMENT DIRECTOR, GINA ARCE 785.6 LYMPH NODES ENLARGEMENT 08/23/2009 LAURA GAMA APRN T 785.6 LYMPH NODES ENLARGEMENT 08/23/2009 LAENTTE CORONANLAURA T 785.6 LYMPH NODES ENLARGEMENT 08/23/2009 LANETTE REIMBURSEMENT DIRECTOR, LAURA T 785.6 LYMPH NODES ENLARGEMENT 08/23/2009 CRAWLEY REIMBURSEMENT DIRECTOR, GINA ARCE 785.6 LYMPH NODES ENLARGEMENT 08/23/2009 CRAWLEY REIMBURSEMENT DIRECTOR, GINA ARCE 785.6 LYMPH NODES ENLARGEMENT 08/23/2009 LANETTE REIMBURSEMENT DIRECTOR, LAURA T 785.6 LYMPH NODES ENLARGEMENT 08/23/2009 CRAWLEY REIMBURSEMENT DIRECTOR, GINA VALENZUELAH 785.6 LYMPH NODES ENLARGEMENT 08/23/2009 LAURA GAMA APRN T 785.6 LYMPH NODES ENLARGEMENT 08/23/2009 JARED ARMIJO 785.6 LYMPH NODES ENLARGEMENT 08/23/2009 LANETTE REIMBURSEMENT DIRECTORLAURA T 785.6 LYMPH NODES ENLARGEMENT 08/23/2009 LAURA [...] JARED ARMIJO 528.2 ORAL APHTHAE 09/20/2009 NAVID PROOFREADER, JARED M 700 CORNS AND CALLOSITIES 09/20/2009 [...] STOKES MD 285.9 ANEMIA UNSPECIFIED 05/07/2010 LANETTE REIMBURSEMENT DIRECTOR, LAURA T 285.9 ANEMIA UNSPECIFIED 05/07/2010 285.9 ANEMIA UNSPECIFIED 05/07/2010 CRAWLEY REIMBURSEMENT DIRECTOR, GINA ARCE 285.9 ANEMIA UNSPECIFIED 05/07/2010 LANETTE REIMBURSEMENT DIRECTOR, LAURA T 285.9 ANEMIA UNSPECIFIED 05/07/2010 LANETTE REIMBURSEMENT DIRECTOR, LAURA T 285.9 ANEMIA UNSPECIFIED 05/07/2010 LANETTE REIMBURSEMENT DIRECTOR, LAURA T 285.9 ANEMIA UNSPECIFIED 05/07/2010 CRAWLEY REIMBURSEMENT DIRECTOR, GINA ARCE 285.9 ANEMIA UNSPECIFIED 05/07/2010 CRAWLEY REIMBURSEMENT DIRECTOR, GINA ARCE 285.9 ANEMIA UNSPECIFIED 05/07/2010 LANETTE REIMBURSEMENT DIRECTOR, LAURA T 285.9 ANEMIA UNSPECIFIED 05/07/2010 CRAWLEY REIMBURSEMENT DIRECTOR, GINA ARCE 285.9 ANEMIA UNSPECIFIED 05/07/2010 LANETTE REIMBURSEMENT DIRECTOR, LAURA T 285.9 ANEMIA UNSPECIFIED 05/07/2010 NAVID CORTEZ JARED Yudi 285.9 ANEMIA UNSPECIFIED 05/07/2010 LANETTE REIMBURSEMENT DIRECTORLAURA T 285.9 ANEMIA UNSPECIFIED 05/07/2010 LANETTE REIMBURSEMENT DIRECTORLAURA T 285.9 ANEMIA UNSPECIFIED 05/16/2010 LAURENT DO, [...] T 300.00 AN ANXIETY UNSPEC 05/16/2010 CRAWLEY REIMBURSEMENT DIRECTOR, GINA ARCE 295.70 P SCHIZO AFFECTIVE 05/16/2010 CRAWLEY REIMBURSEMENT DIRECTOR, GINA ARCE 300.00 AN ANXIETY UNSPEC 05/16/2010 CRAWLEY REIMBURSEMENT DIRECTOR, GINA ARCE 295.70 P SCHIZO AFFECTIVE 05/16/2010 CRAWLEY REIMBURSEMENT DIRECTOR, GINA ARCE 300.00 AN ANXIETY UNSPEC 05/16/2010 LAURA GAMA APRN T 295.70 P SCHIZO AFFECTIVE 05/16/2010 LAURA GAMA APRN T 300.00 AN ANXIETY UNSPEC 05/16/2010 CRAWLEY REIMBURSEMENT DIRECTORGINA 295.70 P SCHIZO AFFECTIVE 05/16/2010 CRAWLEY REIMBURSEMENT DIRECTORGINA 300.00 AN ANXIETY UNSPEC 05/16/2010 LANETTE MARK LAURA T 295.70 P SCHIZO AFFECTIVE 05/16/2010 LANETTE MARK LAURA T 300.00 AN ANXIETY UNSPEC 05/16/2010 NAVID PROOFREADER, JARED M 295.70 P SCHIZO AFFECTIVE 05/16/2010 NAVID PROOFREADER, JARED M 300.00 AN ANXIETY UNSPEC 05/16/2010 [...] MD 250.02 DIABETES II UNCONTROLLED 08/15/2010 LANETTE REIMBURSEMENT DIRECTOR, LAURA T 250.02 DIABETES II UNCONTROLLED 08/15/2010 [...] Carrillo 250.02 DIABETES II UNCONTROLLED 08/15/2010 MISBAH MAKR, GINA ARCE 250.02 DIABETES II UNCONTROLLED 08/15/2010 LANETTE MARK, LAURA T 250.02 DIABETES II UNCONTROLLED 08/15/2010 JARED ARMIJO 250.02 DIABETES II UNCONTROLLED 08/15/2010 LANETTE MARK, LAURA T 250.02 DIABETES II UNCONTROLLED 08/15/2010 LANETTE MARK, LAURA T 250.02 DIABETES II UNCONTROLLED 01/14/2011 ELINOR LAURENT DO 708.9 URTICARIA/HIVES UNSPEC 01/14/2011 LAURA GAMA APRN [...] LAURA GAMA APRN 708.9 URTICARIA/HIVES UNSPEC 01/14/2011 JARED ARMIJO 708.9 URTICARIA/HIVES UNSPEC 01/14/2011 LAURA GAMA APRN 708.9 URTICARIA/HIVES UNSPEC 01/14/2011 LAURA GAMA APRN 708.9 URTICARIA/HIVES UNSPEC 04/24/2011 ELINOR LAURENT DO V58.69 MEDICATION HIGH RISK 04/24/2011 LAURA GAMA APRN V58.69 MEDICATION HIGH RISK 04/24/2011 LANETTE REIMBURSEMENT DIRECTOR, LAURA T V58.69 MEDICATION HIGH RISK 04/24/2011 LANETTE REIMBURSEMENT DIRECTOR, LAURA T V58.69 MEDICATION HIGH RISK 04/24/2011 CRAWLEY REIMBURSEMENT DIRECTOR, GINA ARCE V58.69 MEDICATION HIGH RISK 04/24/2011 LANETTE REIMBURSEMENT DIRECTOR, LAURA T V58.69 MEDICATION HIGH RISK 04/24/2011 ANASTASIIA FLORES ELINOR K V58.69 MEDICATION HIGH RISK 04/24/2011 V58.69 MEDICATION HIGH RISK 04/24/2011 V58.69 MEDICATION HIGH RISK 04/24/2011 V58.69 MEDICATION HIGH RISK 04/24/2011 V58.69 MEDICATION HIGH RISK 04/24/2011 V58.69 MEDICATION HIGH RISK 04/24/2011 V58.69 MEDICATION HIGH RISK 04/24/2011 V58.69 MEDICATION HIGH RISK 04/24/2011 ANASTASIIA FLORESREHANA K V58.69 MEDICATION HIGH RISK 04/24/2011 CRAWLEY REIMBURSEMENT DIRECTOR, GINA ARCE V58.69 MEDICATION HIGH RISK 04/24/2011 LAURA GAMA APRN T V58.69 MEDICATION HIGH RISK 04/24/2011 ADELE STOKES MD V58.69 MEDICATION HIGH RISK 04/24/2011 LAURA GAMA APRN T V58.69 MEDICATION HIGH RISK 04/24/2011 ADELE STOKES MD V58.69 MEDICATION HIGH RISK 04/24/2011 LANETTE CORONANLAURA T V58.69 MEDICATION HIGH RISK 04/24/2011 V58.69 MEDICATION HIGH RISK 04/24/2011 CRAWLEY REIMBURSEMENT DIRECTOR, GINA ARCE V58.69 MEDICATION HIGH RISK 04/24/2011 LAURA GAMA APRN T V58.69 MEDICATION HIGH RISK 04/24/2011 LANETTE CORONANLAURA T V58.69 MEDICATION HIGH RISK 04/24/2011 LANETTE REIMBURSEMENT DIRECTOR, LAURA T V58.69 MEDICATION HIGH RISK 04/24/2011 CRAWLEY REIMBURSEMENT DIRECTOR, GINA ARCE V58.69 MEDICATION HIGH RISK 04/24/2011 CRAWLEY REIMBURSEMENT DIRECTOR, GINA ARCE V58.69 MEDICATION HIGH RISK 04/24/2011 LANETTE REIMBURSEMENT DIRECTOR, LAURA T V58.69 MEDICATION HIGH RISK 04/24/2011 CRAWLEY REIMBURSEMENT DIRECTOR, GINA ARCE V58.69 MEDICATION HIGH RISK 04/24/2011 LANETTE REIMBURSEMENT DIRECTORLAURA T V58.69 MEDICATION HIGH RISK 04/24/2011 JARED [...] M 780.79 MALAISE AND FATIGUE 08/06/2011 NAVID PROOFREADER, JARED M 799.81 DECREASED LIBIDO 08/06/2011 LAURA [...] CRAWLEY APRN 461.9 SINUSITIS ACUTE 11/27/2011 LAURA GAAM APRN 461.9 SINUSITIS ACUTE 11/27/2011 ADELE STOKES [...] GINA CRAWLEY APRN 461.9 SINUSITIS ACUTE 11/27/2011 LARUA GAMA APRN 461.9 SINUSITIS ACUTE 11/27/2011 GINA [...] JOINT INVOLVING ANKLE AND FOOT 01/22/2012 GINA RCAWLEY APRN 110.1 ONYCHOMYCOSIS 01/22/2012 GINA CRAWLEY APRN [...] GAMA APRN T 599.70 HEMATURIA 07/13/2012 JARED ARMJIO 599.70 HEMATURIA 07/13/2012 LAURA GAMA APRN T 599.70 HEMATURIA 07/13/2012 LAURA GAMA APRN T 599.70 HEMATURIA 07/17/2012 LAURENT DO, ELINOR K 599.71 GROSS HEMATURIA 07/17/2012 LAURA GAMA APRN T 599.71 GROSS HEMATURIA 07/17/2012 LAURA GAMA APRN 599.71 GROSS HEMATURIA 07/17/2012 LAURA GAMA APRN T 599.71 GROSS HEMATURIA 07/17/2012 MISBAH MARK GINA YZAMIN 599.71 GROSS HEMATURIA 07/17/2012 LAURA GAMA APRN [...] MD 786.05 SHORTNESS OF BREATH 10/26/2012 LANETTE REIMBURSEMENT DIRECTOR, LAURA T 553.9 HERNIA UNSPECIFIED SITE 10/26/2012 LANETTE REIMBURSEMENT DIRECTOR, LAURA T 786.05 SHORTNESS OF BREATH 10/26/2012 553.9 HERNIA UNSPECIFIED SITE 10/26/2012 786.05 SHORTNESS OF BREATH 10/26/2012 CRAWLEY REIMBURSEMENT DIRECTOR, GINA ARCE 553.9 HERNIA UNSPECIFIED SITE 10/26/2012 CRAWLEY REIMBURSEMENT DIRECTOR, GINA ARCE 786.05 SHORTNESS OF BREATH 10/26/2012 LANETTE REIMBURSEMENT DIRECTOR, LAURA T 553.9 HERNIA UNSPECIFIED SITE 10/26/2012 LANETTE REIMBURSEMENT DIRECTOR, LAURA T 786.05 SHORTNESS OF BREATH 10/26/2012 LANETTE REIMBURSEMENT DIRECTOR, LAURA T 553.9 HERNIA UNSPECIFIED SITE 10/26/2012 LANETTE REIMBURSEMENT DIRECTOR, LAURA T 786.05 SHORTNESS OF BREATH 10/26/2012 LANETTE REIMBURSEMENT DIRECTOR, LAURA T 553.9 HERNIA UNSPECIFIED SITE 10/26/2012 LANETTE REIMBURSEMENT DIRECTORLAURA T 786.05 SHORTNESS OF BREATH 10/26/2012 CRAWLEY REIMBURSEMENT DIRECTOR, GINA ARCE 553.9 HERNIA UNSPECIFIED SITE 10/26/2012 CRAWLEY REIMBURSEMENT DIRECTOR, GINA ARCE 786.05 SHORTNESS OF BREATH 10/26/2012 CRAWLEY REIMBURSEMENT DIRECTOR, GINA ARCE 553.9 HERNIA UNSPECIFIED SITE 10/26/2012 CRAWLEY REIMBURSEMENT DIRECTOR, GINA ARCE 786.05 SHORTNESS OF BREATH 10/26/2012 LANETTE REIMBURSEMENT DIRECTOR, LAURA T 553.9 HERNIA UNSPECIFIED SITE 10/26/2012 LANETTE REIMBURSEMENT DIRECTORLAURA T 786.05 SHORTNESS OF BREATH 10/26/2012 CRAWLEY REIMBURSEMENT DIRECTOR, GINA ARCE 553.9 HERNIA UNSPECIFIED SITE 10/26/2012 CRAWLEY REIMBURSEMENT DIRECTOR, GINA ACRE 786.05 SHORTNESS OF BREATH 10/26/2012 LANETTE REIMBURSEMENT DIRECTOR, LAURA T 553.9 HERNIA UNSPECIFIED SITE 10/26/2012 [...] APRN T V04.81 FLU SHOT 07/02/2013 NAVID PROOFREADER, JARED M V03.82 PPV23 (PNEUMOVAX) DX 07/02/2013 NAVID PROOFREADER, JARED M V04.81 FLU SHOT 07/02/2013 LAURA [...] UNSPE 09/04/2015 SHAZIA JARRETT Ot Z79.899 OTHER [facility] (CURRENT) DRUG THERAPY 09/07/2015 Ot 599.71 09/07/2015 Ot 599.71 09/07/2015 Ot 603.9 09/07/2015 LEIA LIND DO Ot V72.84 09/07/2015 SHAZIA JARRETT Ot E11.65 TYPE 2 DIABETES MELLITUS WITH HYPERGLYCE 01/11/2016 Ot 599.71 GROSS HEMATURIA 01/11/2016 Ot 599.71 GROSS HEMATURIA 01/11/2016 Ot 603.9 HYDROCELE NOS 01/11/2016 LEIA LIND DO Ot V72.84 EXAM PRE-OPERATIVE NOS Procedures Code Description [place] [address] UA LONG DIP 07/13/2012 75391 MICRO ALBUMIN-IN HOUSE 07/13/2012 40352 MICROALBUMIN 07/14/2012 94888 ROUTINE VENIPUNCTURE 07/17/2012 76135 UA W/ CULTURE IF INDICATED 07/17/[address] ABDOMEN & PELVIS W/O CONTRAST 07/17/2012 01015 US SCROTUM ULTRASOUND 07/17/2012 72679 PSA FREE AND TOTAL 07/17/2012 65849 ROUTINE VENIPUNCTURE 07/20/2012 98586 MICRO ALBUMIN-IN HOUSE 07/20/2012 57729 CMP 07/20/2012 13253 LIPID PANEL 07/20/2012 7049431 GFR CALC (RESULT ONLY) 07/20/2012 75566 CBC 07/20/2012 00027 TSH 07/20/2012 Urology Rene Nguyen 07/21/2012 62992 A1C (IN-HOUSE) 08/12/2012 09503 PSYCH IND W/MED CK 20 10/26/2012 27095 PULMONARY FUNCTION TEST 10/26/2012 02900 MEASURE BLOOD OXYGEN LEVEL 10/26/2012 36987 SPIROMETRY 11/17/2012 21258 BRONCHODILATION PRE/POST 11/17/2012 05637 RESPIRATORY FLOW VOLUME LOOP 11/17/2012 43222 PSYCH IND W/MED CK 20 11/19/2012 75748 A1C (IN-HOUSE) 12/02/2012 01684 A1C (IN-HOUSE) 07/02/2013 G0008 FLU ADMINISTRATION ( MEDICARE ONLY) 07/02/2013 92841 ROUTINE VENIPUNCTURE 07/06/2013 45117 CBC 07/06/2013 [id number] GFR CALC (RESULT ONLY) 07/06/2013 75415 CMP 07/06/2013 02114 LIPID PANEL 07/06/2013 62551 A1C (IN-HOUSE) 10/11/2013 49808 MICRO ALBUMIN-IN HOUSE 10/11/2013 64194 A1C (IN-HOUSE) 01/14/2014 04366 OXIMETRY 02/02/2014 15299 SLEEP STUDY ([facility]- SLEEP STUDY) 05/18/2014 53009 A1C (IN-HOUSE) 05/18/2014 G0008 FLU ADMINISTRATION ( MEDICARE ONLY) 05/18/2014 20602 ROUTINE VENIPUNCTURE 11/28/2014 53838 PSA TOTAL 11/28/2014 GENERAL S LEIA LIND 11/28/2014 Results Test Result Range Blood lactic acid measurement (moles/volume) - 10/17/17 23:50 Blood lactic acid measurement (moles/volume) 1.35 mmol/L 0.50-2.00 Complete blood count (CBC) with automated white blood cell (WBC) differential - 10/17/17 23:50 Blood leukocytes automated count (number/volume) 10.1 10*3/uL 4.3-11.0 Blood erythrocytes automated count (number/volume) 3.70 10*6/uL 4.35-5.85 Venous blood hemoglobin measurement (mass/volume) 11.3 g/dL 13.3-17.7 Blood hematocrit (volume fraction) 33 % 40-54 Automated erythrocyte mean corpuscular volume 89 [foz_us] 80-99 Automated erythrocyte mean corpuscular hemoglobin (mass per erythrocyte) 31 pg 25-34 Automated erythrocyte mean corpuscular hemoglobin concentration measurement ( mass/volume) 34 g/dL 32-36 Automated erythrocyte distribution width ratio 14.4 % 10.0-14.5 Automated blood platelet count (count/volume) 271 10*3/uL 130-400 Automated blood platelet mean volume measurement 9.6 [foz_us] 7.4-10.4 Automated blood neutrophils/100 leukocytes 71 % 42-75 Automated blood lymphocytes/100 leukocytes 19 % 12-44 Blood monocytes/100 leukocytes 10 % 0-12 Automated blood eosinophils/100 leukocytes 1 % 0-10 Automated blood basophils/100 leukocytes 0 % 0-10 Blood neutrophils automated count (number/volume) 7.1 10*3 1.8-7.8 Blood lymphocytes automated count (number/volume) 1.9 10*3 1.0-4.0 Blood monocytes automated count (number/volume) 1.0 10*3 0.0-1.0 Automated eosinophil count 0.1 10*3/uL 0.0-0.3 Automated blood basophil count (count/volume) 0.0 10*3/uL 0.0-0.1 PT panel in platelet poor plasma by coagulation assay - 10/17/17 23:50 Prothrombin time (PT) in platelet poor plasma by coagulation assay 12.6 s 12.2-14.7 INR in platelet poor plasma or blood by coagulation assay 0.9 0.8-1.4 Activated partial thromboplastin time (aPTT) in platelet poor plasma bycoagulation assay - 10/17/17 23:50 Activated partial thromboplastin time (aPTT) in platelet poor plasma bycoagulation assay 32 s 24-35 Comprehensive metabolic panel - 10/17/17 23:50 Serum or plasma sodium measurement (moles/volume) 134 mmol/L 135-145 Serum or plasma potassium measurement (moles/volume) 4.4 mmol/L 3.6-5.0 Serum or plasma chloride measurement (moles/volume) 102 mmol/L 98-107 Carbon dioxide 19 mmol/L 21-32 Serum or plasma anion gap determination (moles/volume) 13 mmol/L 5-14 Serum or plasma urea nitrogen measurement (mass/volume) 16 mg/dL 7-18 Serum or plasma creatinine measurement (mass/volume) 1.29 mg/dL 0.60-1.30 Serum or plasma urea nitrogen/creatinine mass ratio 12 NRG Serum or plasma creatinine measurement with calculation of estimated glomerular filtration rate > NRG Serum or plasma glucose measurement (mass/volume) 117 mg/dL 70-105 Serum or plasma calcium measurement (mass/volume) 9.2 mg/dL 8.5-10.1 Serum or plasma total bilirubin measurement (mass/volume) 0.3 mg/dL 0.1-1.0 Serum or plasma alkaline phosphatase measurement (enzymatic activity/volume) 59 U/L 40-136 Serum or plasma aspartate aminotransferase measurement (enzymatic activity/ volume) 16 U/L 5-34 Serum or plasma alanine aminotransferase measurement (enzymatic activity/volume ) 15 U/L 0-55 Serum or plasma protein measurement (mass/volume) 7.2 g/dL 6.4-8.2 Serum or plasma albumin measurement (mass/volume) 4.0 g/dL 3.2-4.5 Magnesium - 10/17/17 23:50 Magnesium 2.0 mg/dL 1.8-2.4 Capillary blood glucose measurement by glucometer (mass/volume) - 10/18/17 00: 35 Capillary blood glucose measurement by glucometer (mass/volume) 106 mg/dL 70-110 Complete urinalysis with reflex to culture - 10/18/17 01:25 Urine color determination YELLOW NRG Urine clarity determination CLEAR NRG Urine pH measurement by test strip 5 5-9 Specific gravity of urine by test strip 1.020 1.016- 1.022 Urine protein assay by test strip, semi-quantitative 1+ NEGATIVE Urine glucose detection by automated test strip NEGATIVE NEGATIVE Erythrocytes detection in urine sediment by light microscopy NEGATIVE NEGATIVE Urine ketones detection by automated test strip NEGATIVE NEGATIVE Urine nitrite detection by test strip POSITIVE NEGATIVE Urine total bilirubin detection by test strip NEGATIVE NEGATIVE Urine urobilinogen measurement by automated test strip (mass/volume) NORMAL NORMAL Urine leukocyte esterase detection by dipstick 3+ NEGATIVE Automated urine sediment erythrocyte count by microscopy (number/high power field) NONE NRG Automated urine sediment leukocyte count by microscopy (number/high power field ) [HPF] NRG Bacteria detection in urine sediment by light microscopy LARGE NRG Crystals detection in urine sediment by light microscopy NONE NRG Casts detection in urine sediment by light microscopy NONE NRG Mucus detection in urine sediment by light microscopy NEGATIVE NRG Complete urinalysis with reflex to culture YES NRG Arterial blood gas measurement - 10/18/17 01:35 Blood pCO2 47 mm[Hg] 35-45 Blood pO2 61 mm[Hg] 79-93 Arterial blood bicarbonate measurement (moles/volume) 25 mmol/L 23-27 Arterial blood base excess by calculation -0.1 mmol/L - 2.5-2.5 Arterial blood oxygen saturation measurement 91 % 94-100 * Inhaled oxygen flow rate 21% NRG Arterial blood pH measurement with patient temperature correction 7.35 7.37-7.43 Arterial blood carbon dioxide, total measurement (moles/volume) 26.4 mmol/L 21.0-31.0 Body site LEFT RADIAL NRG Assessment of wrist artery patency prior to arterial puncture YES- POS NRG Setting of ventilation mode NO NRG Measurement of body temperature 98.9 NRG Encounters ACCT No. Visit Date/Time Discharge Status Pt. Type Provider Facility Loc./Unit Complaint [id number] 11/28/2014 11:31:00 11/28/2014 23:59:59 CLS Outpatient LAURA GAMA APRN [id number] 09/23/2014 11:53:00 09/23/2014 23:59:59 CLS Outpatient LAURA GAMA APRN [id number] 08/26/2014 14:56:00 08/26/2014 23:59:59 CLS Outpatient JARED ARMIJO [id number] 05/24/2014 15:14:00 05/24/2014 23:59:59 CLS Outpatient MISBAH CORONALisa GINA ARCE [id number] 05/18/2014 15:42:00 05/18/2014 23:59:59 CLS Outpatient LAURA GAMA APRN [id number] 05/18/2014 15:42:00 05/18/2014 23:59:59 CLS Outpatient LAURA GAMA APRN [id number] 03/15/2014 11:56:00 03/15/2014 23:59:59 CLS Outpatient MISBAH CORONALisa GINA ARCE [id number] 02/10/2014 10:32:00 02/10/2014 23:59:59 CLS Outpatient MISBAH DEEDEE GINA YAZMIN [id number] 02/02/2014 10:20:00 02/02/2014 23:59:59 [facility] Outpatient LAURA GAMA APRN [id number] 01/14/2014 15:32:00 01/14/2014 23:59:59 CLS Outpatient LAURA GAMA APRN [id number] 01/14/2014 15:32:00 01/14/2014 23:59:59 [facility] Outpatient LAURA GAMA APRN [id number] 11/10/2013 09:40:00 11/10/2013 23:59:59 CLS Outpatient GINA CRAWLEY APRN [id number] 11/01/2013 12:47:00 11/01/2013 23:59:59 CLS Outpatient [id number] 10/11/2013 08:42:00 10/11/2013 23:59:59 CLS Outpatient LAURA GAMA APRN [id number] 10/11/2013 08:42:00 10/11/2013 23:59:59 CLS Outpatient ADELE STOKES MD [id number] 07/06/2013 07:54:00 07/06/2013 23:59:59 CLS Outpatient ADELE STOKES MD [id number] 07/02/2013 09:43:00 07/02/2013 23:59:59 CLS Outpatient LAURA GAMA APRN [place] [id number] 07/02/2013 09:43:00 07/02/2013 23:59:59 CLS Outpatient LANETTE REIMBURSEMENT DIRECTOR, LAURA [place] [id number] 05/31/2013 12:34:00 05/31/2013 23:59:59 CLS Outpatient GINA CRAWLEY APRN [id number] 04/23/2013 11:39:00 04/23/2013 23:59:59 CLS Outpatient ELINOR LAURENT DO [id number] 12/02/2012 14:15:00 12/02/2012 23:59:59 CLS Outpatient [id number] 11/17/2012 10:22:00 11/17/2012 23:59:59 CLS Outpatient ELINOR LAURENT DO [id number] 10/26/2012 12:01:00 10/26/2012 23:59:59 CLS Outpatient LAURA GAMA APRN [place] [id number] 10/26/2012 12:01:00 10/26/2012 23:59:59 CLS Outpatient [id number] 10/03/2012 13:12:00 10/03/2012 23:59:59 CLS Outpatient GINA CRAWLEY APRN [id number] 09/11/2012 10:02:00 09/11/2012 23:59:59 CLS Outpatient LANETTE CORONALisa LAURA [place] [id number] 08/12/2012 11:24:00 08/12/2012 23:59:59 CLS Outpatient LANETTE CORONALAURA Gonzalez [id number] 07/17/2012 09:54:00 07/17/2012 23:59:59 CLS Outpatient ELINOR LAURENT DO [id number] 07/13/2012 11:01:00 07/13/2012 23:59:59 CLS Outpatient LAURA GAMA APRN [id number] 04/16/2013 08:44:00 Document Registration [id number] 03/17/2013 17:10:00 Document Registration [id number] 02/17/2013 14:18:00 Document Registration [id number] 12/12/2012 12:45:00 Document Registration [id number] 12/02/2012 14:15:00 Document Registration [id number] 09/07/2015 10:11:00 09/07/2015 13:24:00 DIS Emergency SHAZIA JARRETT [facility] [id number] 09/04/2015 11:06:00 09/04/2015 13:26:00 DIS Emergency SHAZIA JARRETT [facility] [id number] 01/09/2015 13:12:00 01/09/2015 15:30:00 DIS Outpatient LEIA LIND DO Via [facility] [id number] 01/04/2015 06:07:00 01/04/2015 23:59:59 CLS Outpatient LEIA LIND DO [facility] PREOP [id number] 10/18/2017 00:15:00 Document Registration [id number] 10/26/2014 20:50:00 Document Registration [id number] 07/23/2012 11:58:00 Document Registration [id number] 07/17/2012 11:24:00 Document Registration [id number] 09/01/2011 21:02:00 Document Registration [id number] 04/25/2010 13:02:00 Document Registration
[2017-10-18 03:50] VITALS: BP 120/67
[2017-10-18] MEDS ORDERED: NS IV 1000 ML 1,000 ML ONE (04:10)
[2017-10-18] MEDS ORDERED: SPIR25TA3 PO (05:44)
[2017-10-18] MEDS ORDERED: METF1000 PO (05:44)
[2017-10-18] MEDS ORDERED: VALS320T14 PO (05:44)
[2017-10-18] MEDS ORDERED: AMLO5TAB2 PO (05:44)
[2017-10-18] MEDS ORDERED: ESOM40CA52 PO (05:44)
[2017-10-18] MEDS ORDERED: ALPR1TAB7 PO (05:49)
[2017-10-18] MEDS ORDERED: TAMS0.4C2 PO (05:49)
[2017-10-18] MEDS ORDERED: ZIPR80CA23 PO (05:49)
[2017-10-18] MEDS: NS IV 1000 ML 1,000 ML IV SCH ×3 (05:51→18:10)
[2017-10-18 06:00] VITALS: BP 144/81
--- NOTE | 2017-10-18 07:05 | Diagnostic Imaging Report ---
PROCEDURE: CT head and CT cervical spine without contrast. TECHNIQUE: Multiple contiguous axial images were obtained through the brain and cervical spine without the use of intravenous contrast. Sagittal and coronal reformations through the cervical spine were then performed. INDICATION: Fall with head trauma. Comparison made with prior examination from 09/01/2011. FINDINGS: The ventricles and sulci are within normal limits. There is no hydrocephalus. There is no midline shift. There is no intracranial mass, hemorrhage or extra-axial fluid collection. There is a focal hypodensity in the left centrum semiovale. Calvarium is intact. Sinuses and mastoid air cells are clear. There is straightening of normal cervical lordosis. The vertebral body heights are well-maintained. There is no fracture or traumatic subluxation. The odontoid is intact and lateral masses are well aligned. Prevertebral soft tissues are within normal limits. Lung apices are clear. IMPRESSION: No acute intracranial abnormality. There is a focal hypodensity in the left centrum semiovale which appears to have developed since the prior examination. Possibility of an underlying demyelinating lesion cannot be excluded. Recommend clinical correlation and if warranted followup with MRI. Straightening of the normal cervical lordosis likely along the basis of muscle spasm or pain. No acute fracture or traumatic subluxation. Dictated by: Dictated on workstation # [id number]
--- NOTE | 2017-10-18 07:18 | Diagnostic Imaging Report ---
INDICATION: Fall. Comparison made with prior examination from 09/02/2011. FINDINGS: Heart size is normal. The mediastinum is unremarkable. No pleural effusion or pneumothorax. IMPRESSION: No acute cardiopulmonary abnormality. Dictated by: Dictated on workstation # [id number]
--- NOTE | 2017-10-18 07:36 | History & Physicial (CHS) ---
HPI History of Present Illness: 46-year-old male presents to via [facility] emergency during the director of it operations of October 18, 2017 with weakness. According to his he has also been having altered mental status. Apparently he has had multiple falls over the past about 4 days. By history he is also had urinary incontinence as well. Source: patient Exam Limitations: clinical condition Date seen by provider: Oct 18, 2017 Time Seen by Provider: 07:00 Attending Physician Sujit Castorena MD [facility] Consult Date of Admission Oct 18, 2017 at 03:10 Home Medications Home Medications Reviewed patient Home Medication Reconciliation Form Allergies Coded Allergies: No Known Drug Allergies (Unverified , 04/25/10) OIG-Sgubxy-Rrzyfc Hx Patient Social History Marrital Status: Alcohol Use: Occasionally Uses Recreational Drug Use: No Smoking Status: Never a Smoker Former smoker/When Quit: May 03, 2015 Type Used: Cigarettes 2nd Hand Smoke Exposure: No Recent Foreign Travel: No Contact w/other who traveled: No Recent Hopitalizations: No Recent Infectious Disease Expo: No Physical Abuse Screen: No Sexual Abuse: No Immunizations Up To Date Date of Pneumonia Vaccine: Jul 25, 2014 Date of Influenza Vaccine: May 25, 2015 Family Medical History Significant Family History: No Pertinent Family Hx Review of Systems ([facility]) Constitutional: see HPI Reviewed Test Results Reviewed Test Results Lab Laboratory Tests Test 10/17/17 23:50 10/18/17 00:35 10/18/17 01:25 10/18/17 01:35 Range/Units White Blood Count 10.1 4.3-11.0 10^3/uL Red Blood Count 3.70 L 4.35-5.85 10^6/uL Hemoglobin 11.3 L 13.3-17.7 G/DL Hematocrit 33 L 40-54 % Mean Corpuscular Volume 89 80-99 FL Mean Corpuscular Hemoglobin 31 25-34 PG Mean Corpuscular Hemoglobin Concent 34 32-36 G/DL Red Cell Distribution Width 14.4 10.0-14.5 % Platelet Count 271 130-400 10^3/uL Mean Platelet Volume 9.6 7.4-10.4 FL Neutrophils (%) (Auto) 71 42-75 % Lymphocytes (%) (Auto) 19 12-44 % Monocytes (%) (Auto) 10 0-12 % Eosinophils (%) (Auto) 1 0-10 % Basophils (%) (Auto) 0 0-10 % Neutrophils # (Auto) 7.1 1.8-7.8 X 10^3 Lymphocytes # (Auto) 1.9 1.0-4.0 X 10^3 Monocytes # (Auto) 1.0 0.0-1.0 X 10^3 Eosinophils # (Auto) 0.1 0.0-0.3 10^3/uL Basophils # (Auto) 0.0 0.0-0.1 10^3/uL Prothrombin Time 12.6 12.2-14.7 SEC INR Comment 0.9 0.8-1.4 Activated Partial Thromboplast Time 32 24-35 SEC Sodium Level 134 L 135-145 MMOL/L Potassium Level 4.4 3.6-5.0 MMOL/L Chloride Level 102 98-107 MMOL/L Carbon Dioxide Level 19 L 21-32 MMOL/L Anion Gap 13 5-14 MMOL/L Blood Urea Nitrogen 16 7-18 MG/DL Creatinine 1.29 0.60-1.30 MG/DL Estimat Glomerular Filtration Rate > 60 BUN/Creatinine Ratio 12 Glucose Level 117 H 70-105 MG/DL Lactic Acid Level 1.35 0.50-2.00 MMOL/L Calcium Level 9.2 8.5-10.1 MG/DL Magnesium Level 2.0 1.8-2.4 MG/DL Total Bilirubin 0.3 0.1-1.0 MG/DL Aspartate Amino Transf (AST/SGOT) 16 5-34 U/L Alanine Aminotransferase (ALT/SGPT) 15 0-55 U/L Alkaline Phosphatase 59 40-136 U/L Total Protein 7.2 6.4-8.2 GM/DL Albumin 4.0 3.2-4.5 GM/DL Glucometer 106 70-110 MG/DL Urine Color YELLOW Urine Clarity CLEAR Urine pH 5 5-9 Urine Specific Blain 1.020 1.016-1.022 Urine Protein 1+ H NEGATIVE Urine Glucose (UA) NEGATIVE NEGATIVE Urine Ketones NEGATIVE NEGATIVE Urine Nitrite POSITIVE H NEGATIVE Urine Bilirubin NEGATIVE NEGATIVE Urine Urobilinogen NORMAL NORMAL MG/DL Urine Leukocyte Esterase 3+ H NEGATIVE Urine RBC (Auto) NEGATIVE NEGATIVE Urine RBC NONE /HPF Urine WBC 25-50 H /HPF Urine Crystals NONE /LPF Urine Bacteria LARGE H /HPF Urine Casts NONE /LPF Urine Mucus NEGATIVE /LPF Urine Culture Indicated YES Blood Gas Puncture Site LEFT RADIAL Blood Gas Patient Temperature 98.9 Arterial Blood pH 7.35 L 7.37-7.43 Arterial Blood Partial Pressure CO2 47 H 35-45 MMHG Arterial Blood Partial Pressure O2 61 L 79-93 MMHG Arterial Blood HCO3 25 23-27 MMOL/L Arterial Blood Total CO2 26.4 21.0-31.0 MMOL/L Arterial Blood Oxygen Saturation 91 L 94-100 % Arterial Blood Base Excess -0.1 -2.5-2.5 MMOL/L Ahsan Test YES-POS Blood Gas Ventilator Setting NO Blood Gas Inspired Oxygen 21% Test 10/18/17 04:17 10/18/17 05:55 Range/Units Glucometer 102 96 70-110 MG/DL Radiology NAME: LAURA GLOVER III [facility] REC#: [id number] PT STATUS: ADM IN : 1970 PHYSICIAN: NELDA LYNN MD ADMIT DATE: 10/18/17 Draft Date of Exam:10/18/17 CT HEAD/CERVICAL SPINE WO PROCEDURE: CT head and CT cervical spine without contrast. TECHNIQUE: Multiple contiguous axial images were obtained through the brain and cervical spine without the use of intravenous contrast. Sagittal and coronal reformations through the cervical spine were then performed. INDICATION: Fall with head trauma. Comparison made with prior examination from 09/01/2011. FINDINGS: The ventricles and sulci are within normal limits. There is no hydrocephalus. There is no midline shift. There is no intracranial mass, hemorrhage or extra-axial fluid collection. There is a focal hypodensity in the left centrum semiovale. Calvarium is intact. Sinuses and mastoid air cells are clear. There is straightening of normal cervical lordosis. The vertebral body heights are well-maintained. There is no fracture or traumatic subluxation. The odontoid is intact and lateral masses are well aligned. Prevertebral soft tissues are within normal limits. Lung apices are clear. IMPRESSION: No acute intracranial abnormality. There is a focal hypodensity in the left centrum semiovale which appears to have developed since the prior examination. Possibility of an underlying demyelinating lesion cannot be excluded. Recommend clinical correlation and if warranted followup with MRI. Straightening of the normal cervical lordosis likely along the basis of muscle spasm or pain. No acute fracture or traumatic subluxation. Dictated on workstation # [id number] Physical Exam-([facility]) Physical Exam Vital Signs VS - Last 72 Hours, by Label 10/17/17 10/18/17 10/18/17 10/18/17 23:45 03:50 03:50 04:30 Temp 98.9 96.8 Pulse 73 65 Resp 14 18 B/P (MAP) 108/67 (81) 120/67 (84) Pulse Ox 96 100 100 O2 Delivery Room Air OxyMask Mechanical Ventilator OxyMask O2 Flow Rate 5.00 5.00 5.00 10/18/17 10/18/17 06:00 07:14 Temp 96.4 Pulse 66 Resp 22 B/P (MAP) 144/81 (102) Pulse Ox 94 98 O2 Delivery Room Air Room Air Capillary Refill : Less Than 3 Seconds General Appearance: no apparent distress Eyes: Bilateral Eye Normal Inspection Neck: non-tender Respiratory: lungs clear Cardiovascular: regular rate, rhythm Gastrointestinal: soft Rectal: deferred Neurologic/Psychiatric: alert, motor weakness (generalized) Skin: normal color Clinical Quality Measures DVT/VTE Risk/Contraindication: Risk Factor Score Per Nursin RFS Level Per Nursing on Admit: 3=High Assessment/Plan Assessment/Plan Admission Dx 1. Altered mental status 2. Urinary tract infection 3. Generalized weakness with frequent falls 4. Diabetes mellitusknown Admission Status: Inpatient Order (span 2 midnights) Plan 1. Altered mental status -patient had initial CT of the head which revealed lesion in the left centrum semiovale Recommendations were for MRI 2. Urinary tract infection -He was started on ceftriaxone in the emergency department 3. Generalized weakness with frequent falls -Ultimately physical therapy involvement 4. Diabetes mellitusknown -He will be maintained on his diabetic regimen. SUJIT CASTORENA MD Oct 18, 2017 07:36
[2017-10-18 08:00] VITALS: BP 137/73
[2017-10-18] MEDS ORDERED: RT-ALBUTEROL SULF 2.5 MG/3 ML PRE-MIX VIAL IH PRN (08:45)
[2017-10-18] MEDS ORDERED: INFLUENZA TRIvalent 2017-2018 0.5 ML/45 MCG SYR IM ONE (09:00)
[2017-10-18] MEDS ORDERED: cefTRIAXone INJECTION 1,000 MG in NS (IVPB) 50 ML IV SCH (09:00)
[2017-10-18] MEDS: FLUoxetine HCL 20 MG (PROzac) CAP PO SCH (09:12)
[2017-10-18] MEDS: meTOprolol TARTRATE 50 MG (LOPRESSOR) TAB PO SCH ×2 (09:12→20:39)
[2017-10-18 12:00] VITALS: BP 130/82
[2017-10-18 16:07] VITALS: BP 144/97
[2017-10-18 20:35] VITALS: BP 148/87
[2017-10-18] MEDS ORDERED: ALPRAZolam 0.5 MG (XANAX) TAB PO SCH (21:00)
[2017-10-18] MEDS ORDERED: eZETimibe 10 MG (ZETIA) TABLET PO SCH (21:00)
[2017-10-18] MEDS ORDERED: SIMvastatin 40 MG (ZOCOR) TAB PO SCH (21:00)
[2017-10-19] VITALS: BP 137/88
[2017-10-19] MEDS: NS IV 1000 ML 1,000 ML IV SCH (01:49)
[2017-10-19] MEDS ORDERED: cefTRIAXone 1,000 MG/NS 50 ML IVPB IV SCH ×2 (02:00)
[2017-10-19 04:00] VITALS: BP 144/84
[2017-10-19 05:50] LABS: BASOPHILS % (AUTO) 0 % (0-10); EOSINOPHILS # (AUTO) 0.1 10^3/uL (0.0-0.3); EOSINOPHILS % (AUTO) 2 % (0-10); HEMATOCRIT 34 % (40-54); HEMOGLOBIN 11.4 G/DL (13.3-17.7); LYMPHOCYTES # (AUTO) 1.7 X 10^3 (1.0-4.0); LYMPHOCYTES % (AUTO) 25 % (12-44); MEAN CORPUSCULAR HEMOGLOBIN 30 PG (25-34); MEAN CORPUSCULAR HGB CONC 34 G/DL (32-36); MEAN CORPUSCULAR VOLUME 89 FL (80-99); MEAN PLATELET VOLUME 9.3 FL (7.4-10.4); MONOCYTES # (AUTO) 0.8 X 10^3 (0.0-1.0); MONOCYTES % (AUTO) 12 % (0-12); NEUTROPHILS # (AUTO) 4.1 X 10^3 (1.8-7.8); NEUTROPHILS % (AUTO) 61 % (42-75); PLATELET COUNT 283 10^3/uL (130-400); RED BLOOD COUNT 3.79 10^6/uL (4.35-5.85); RED CELL DISTRIBUTION WIDTH 14.1 % (10.0-14.5); WHITE BLOOD COUNT 6.7 10^3/uL (4.3-11.0)
[2017-10-19 07:34] VITALS: BP 151/93
--- NOTE | 2017-10-19 07:49 | Discharge Summary ---
Diagnosis/Chief Complaint Date of Admission Oct 18, 2017 at 03:10 Date of Discharge October 19, 2017 Admission Diagnosis Admission Diagnosis 1. Altered mental status--sedating medication suspected 2. Weakness with frequent falls 3. Urinary tract infection 4. Diabetes mellitus Discharge Diagnosis 1. Altered mental status--and this may be related to low glucose, sedating medications, and less likely infection 2. Weakness with frequent falls--improved 3. Urinary tract infection -- Escherichia coli 4. Diabetes mellitus Chief Complaint/HPI Chief Complaint/HPI 46-year-old male presents to [facility] emergency during the director of bands of October 18, 2017 with weakness. According to his he has also been having altered mental status. Apparently he has had multiple falls over the past about 4 days. By history he is also had urinary incontinence as well. Discharge Summary-Simple/Stand Consultations Discharge Physical Examination Allergies: Coded Allergies: No Known Drug Allergies (Unverified , 04/25/10) Vitals & I&Os Vital Sign - Last 12Hours Date Time Temp Pulse Resp B/P (MAP) Pulse Ox O2 Delivery O2 Flow Rate FiO2 10/19/17 07:34 97.3 69 20 151/93 (112) 96 Room Air 10/18/17 04:30 5.00 Intake and Output 10/19/17 00:00 Intake Total 3250 ml Output Total 1025 ml Balance 2225 ml General Appearance: No Acute Distress HEENT: Mucous Memb Moist/Lowry Respiratory: Clear to Auscultation Cardiovascular: Regular Rate Abdominal: Normal Bowel Sounds, Soft Extremities: No Edema, No Tenderness/Swelling Skin: No Rashes, No Significant Lesion Neuro: Normal Speech Psych/Mental Status: Mental Status NL Hospital Course 46-year-old male admitted with altered mental status and weakness. He was found in the emergency department have urinary tract infection and was empirically started on ceftriaxone. Patient also had blood cultures as well as urine cultures collected at time of admission. He received IV fluids along with reinstituting his home medications but leaving off sedating medications as much as possible. In the morning of October 19, 2017 he was in normal mental status. His blood cultures were noted to be negative but his urine culture grew Escherichia coli. He was also noted to have a stable hemoglobin 11.4 and a white count on dismissal of 6.7. All questions were answered and he was felt ready for dismissal during the morning of October 19. He will follow-up with [facility] in the next 3-4 days with Sami Scales--his primary provider. Radiology Reviewed NAME: LAURA GLOVER III [facility] REC#: [id number] PT STATUS: ADM IN : 1970 PHYSICIAN: NELDA LYNN MD ADMIT DATE: 10/18/17/ Draft Date of Exam:10/18/17 CT HEAD/CERVICAL SPINE WO PROCEDURE: CT head and CT cervical spine without contrast. TECHNIQUE: Multiple contiguous axial images were obtained through the brain and cervical spine without the use of intravenous contrast. Sagittal and coronal reformations through the cervical spine were then performed. INDICATION: Fall with head trauma. Comparison made with prior examination from 09/01/2011. FINDINGS: The ventricles and sulci are within normal limits. There is no hydrocephalus. There is no midline shift. There is no intracranial mass, hemorrhage or extra-axial fluid collection. There is a focal hypodensity in the left centrum semiovale. Calvarium is intact. Sinuses and mastoid air cells are clear. There is straightening of normal cervical lordosis. The vertebral body heights are well-maintained. There is no fracture or traumatic subluxation. The odontoid is intact and lateral masses are well aligned. Prevertebral soft tissues are within normal limits. Lung apices are clear. IMPRESSION: No acute intracranial abnormality. There is a focal hypodensity in the left centrum semiovale which appears to have developed since the prior examination. Possibility of an underlying demyelinating lesion cannot be excluded. Recommend clinical correlation and if warranted followup with MRI. Straightening of the normal cervical lordosis likely along the basis of muscle spasm or pain. No acute fracture or traumatic subluxation. Dictated on workstation # [id number] Discharge Instructions to patient/family Please see electronic discharge instructions given to patient. Discharge Medications Reviewed and agree with Discharge Medication list on patient's Discharge Instruction sheet Clinical Quality Measures DVT/VTE Risk/Contraindication: Risk Factor Score Per Nursin RFS Level Per Nursing on Admit: 3=High RADHA RAM MD Oct 19, 2017 07:49
[2017-10-19] MEDS ORDERED: CEPH500C PO (07:54)
--- NOTE | 2017-10-19 07:56 | Discharge Inst-Simple/Standard ---
Discharge Inst-Standard Discharge Medications New, Converted or Re-Newed RX: Transmitted to Pharmacy (Cephalexin) Patient Instructions/Follow Up Plan of Care/Instructions/FU: Follow-up with [facility] within the week with Sami Scales your primary care provider Activity as Tolerated: Yes Discharge Diet: ADA Diet Return to The Hospital For: Worsening fever or change of mentation RADHA RAM MD Oct 19, 2017 07:56
[2017-10-19] MEDS: FLUoxetine HCL 20 MG (PROzac) CAP PO SCH (08:03)
[2017-10-19] MEDS: meTOprolol TARTRATE 50 MG (LOPRESSOR) TAB PO SCH (08:03)
[2017-10-19 08:30] VITALS: BP 158/88
== END 2017-10-19 08:30 | disposition home or self-care (01) | DRG 948 ==
LOC: EDUNIT# 23:24 → ER 23:25 → 4TH 10-18 03:10
PROVIDERS: ADMIT Family Medicine; ATTEND Family Medicine
DX: R41.82 Altered mental status, unspecified (principal); T42.75XA Adverse effect of unspecified antiepileptic and sedative-hypnotic drugs, initial encounter; N39.0 Urinary tract infection, site not specified; B96.20 Unspecified Escherichia coli [E. coli] as the cause of diseases classified elsewhere; E11.9 Type 2 diabetes mellitus without complications; R53.1 Weakness; J45.909 Unspecified asthma, uncomplicated; R29.6 Repeated falls; F31.9 Bipolar disorder, unspecified; Z23 Encounter for immunization
CPT/HCPCS: 36415; 70450; 71045; 72125; 80053; 81000; 82805; 82962; 83605; 83735; 85025; 85610; 85730; 87040; 87088; 87186; 94664; 94760; 96365

== ENCOUNTER → 2017-11-07 | Outpatient (CLI) | payer MEDICARE ==
[~2017-11-07] MED LIST changes: +ALPR1TAB7 PO; +AMLO5TAB2 PO; +CEPH500C PO; +ESOM40CA52 PO; +GADOBUTROL 15 MMOL/15 ML (GADAVIST) VIAL IV ONE; +METF1000 PO; +SPIR25TA3 PO; +TAMS0.4C2 PO; +VALS320T14 PO; +ZIPR80CA23 PO
--- NOTE | 2017-11-07 10:40 | Diagnostic Imaging Report ---
PROCEDURE: MR imaging of the brain with and without contrast. TECHNIQUE: Multiplanar, multisequence MR imaging of the brain was performed with and without contrast. INDICATION: Abnormal CT exam. FINDINGS: There are no previous MRI examinations available for comparison. The CT head exam performed on 10/18/2017 failed to show any sign of an acute abnormality. However there was a focal hypodensity in the left centrum semiovale. The possibility that this is related to demyelinating disease was raised. On the FLAIR series of this exam, there is an area of increased signal in the left centrum semiovale which would correspond to the finding of the CT head exam. This area of abnormal signal does not show any enhancement on the postcontrast series. There are several other similar appearing areas of altered signal in the periventricular white matter bilaterally. This appearance is suspicious for demyelinating disease. The possibility that these areas of altered signal are related to encephalomalacia from microvascular ischemia should also be considered. Clinical followup is recommended. There is no other abnormal enhancement on the postcontrast series to suggest a neoplastic or infectious process. There is no signal abnormality arising from the brain on the diffusion series to indicate an area of acute ischemia. However, there does seem to be slightly increased signal in the middle cerebellar peduncle on the left and in the left centrum semiovale in the areas of the suspected demyelinating disease. The abnormal signal involving the left middle cerebellar peduncle could also be related to demyelinating disease. The ventricles are not abnormally dilated. There is mild cortical atrophy present. The degree of atrophy is consistent the patient's age. The sella is not enlarged and expected carotid flow voids are evident bilaterally. The orbits are symmetrical and within normal limits. In particular there is no evidence for optic neuritis. The right maxillary antrum is somewhat hypoplastic and there is mild mucosal thickening of the right maxillary antrum. The sinuses are otherwise generally clear. The seventh and eighth nerve complexes are unremarkable. IMPRESSION: 1. There is no evidence for an acute intracranial abnormality and there is no abnormal enhancement on the postcontrast series. 2. The areas of abnormal signal in the periventricular white matter seen on FLAIR series are suspicious for demyelinating disease. There may also be involvement of the left middle cerebellar peduncle by demyelinating disease. Clinical followup is recommended. 3. There is mild right maxillary sinusitis. Dictated by: Dictated on workstation # [id number]
== END ==
LOC: RAD 06:49
PROVIDERS: ATTEND Nurse Practitioner Community Health
DX: J32.0 Chronic maxillary sinusitis (principal); E11.8 Type 2 diabetes mellitus with unspecified complications
CPT/HCPCS: 36415; 70553; 84520

== ENCOUNTER 2020-09-27 15:36 | Observation (INO) | payer MEDICARE ==
[~2020-09-27] VITALS: Ht 172 cm; Wt 107.5 kg
[~2020-09-27 15:36] MED LIST changes: +AMLO-250 PO; -AMLO5TAB2 PO; -GADOBUTROL 15 MMOL/15 ML (GADAVIST) VIAL IV ONE; +METF-399 PO; -METF1000 PO; -SPIR25TA3 PO; +SPIR25TA5 PO; -VALS320T14 PO; +VALS320T15 PO; +ZIPR80CA21 PO; -ZIPR80CA23 PO
[2020-09-27] MEDS ORDERED: NS IV 1000 ML 2,000 ML ONE (16:05)
[2020-09-27] MEDS ORDERED: NS IV 1000 ML 1,000 ML IV STA (16:07)
[2020-09-27] MEDS: NS IV 1000 ML 1,000 ML IV SCH ×3 (16:16→18:13)
--- NOTE | 2020-09-27 16:16 | ED Dyspnea ---
General Stated Complaint: SOB, OFF BALANCE X2 DAYS Source of Information: Patient Exam Limitations: No Limitations History of Present Illness Date Seen by Provider: Sep 27, 2020 Time Seen by Provider: 16:00 Initial Comments Patient is a 49-year-old male who presents to the emergency department today with a chief complaint of feeling lightheaded and having some shortness of breath. Patient states his family was tested for the coronavirus last week. Patient states that he tested negative. Patient states that he has been quarantined with his granddaughters for 20 days and states over the last several days he has developed shortness of breath and feeling lightheaded. Patient sounds like he has some upper respiratory congestion but denies this. Denies runny nose, sore throat. States that he has not lost taste or smell. Denies any nausea, vomiting, diarrhea. No headaches. No myalgias. States that he just feels "bad". Patient tells me he has a history of hypertension, bipolar disease and diabetes. His knows his medications, he cannot recall them off the top of his head. Patient states that he did not take his nightly medications last night but did take his medications due for the morning this morning. Patient states that he has had decreased appetite over the last 3 days. States that 3 days ago he really did not eat anything but today he has had a little bit of food and some fluids. All other review of systems reviewed and negative except as stated. Timing/Duration: 1 Week, Increasing Severity: Moderate Activities at Onset: None Prior Episodes/Possible Cause: Illness Exposure Associated Symptoms: Lightheadedness Allergies and Home Medications Allergies Coded Allergies: No Known Drug Allergies (Unverified , 04/25/10) Home Medications Albuterol Sulfate 1 Puff Puff, 1 PUFF IH Q4H PRN for SHORTNESS OF BREATH, (Reported) MDI Alprazolam 1 Mg Tablet, 0.5-1 MG PO TID TAKE 1 TAB BY MOUTH TWICE A DAY AND 1/2 TAB EVERY NIGHT AT BEDTIME Prescribed by: ALICIA LADD on 10/18/17 0549 Amlodipine Besylate 5 Mg Tablet, 5 MG PO DAILY, (Reported) Cephalexin 500 Mg Capsule, 500 MG PO TID Prescribed by: RADHA RAM on 10/19/17 0754 Esomeprazole Magnesium 40 Mg Capsule.dr, 40 MG PO DAILY, (Reported) Ezetimibe 10 Mg Tablet, 10 MG PO HS, (Reported) Fluoxetine Hcl 40 Mg Capsule, 1 EACH PO DAILY, (Reported) Lamotrigine 150 Mg Tablet, 300 MG PO HS, (Reported) Metformin HCl 1,000 Mg Tablet, 1,000 MG PO BID, (Reported) Metoprolol Tartrate 50 Mg Tablet, 50 MG PO BID, (Reported) Montelukast Sodium 10 Mg Tab, 10 MG PO DAILY, (Reported) Simvastatin 40 Mg Tablet, 40 MG PO HS, (Reported) Spironolactone 25 Mg Tablet, 25 MG PO DAILY, (Reported) Tamsulosin HCl 0.4 Mg Cap.er.24h, 0.8 MG PO DAILY, (Reported) Valsartan 320 Mg Tablet, 320 MG PO DAILY, (Reported) Patient Home Medication List Home Medication List Reviewed: Yes Review of Systems Review of Systems Constitutional: see HPI, malaise, weakness EENTM: no symptoms reported Respiratory: cough, short of breath Cardiovascular: no symptoms reported Gastrointestinal: no symptoms reported Genitourinary: no symptoms reported Musculoskeletal: no symptoms reported Skin: no symptoms reported Psychiatric/Neurological: Weakness (Generalized weakness, lightheaded) All Other Systems Reviewed Negative Unless Noted: Yes Past Zurqfmi-Hnrcwv-Faclcf Hx Patient Social History Alcohol Beverage of Choice: Beer Type Used: Cigarettes 2nd Hand Smoke Exposure: No Recent Hopitalizations: No Immunizations Up To Date Date of Pneumonia Vaccine: Jul 25, 2014 Date of Influenza Vaccine: Oct 18, 2017 Seasonal Allergies Seasonal Allergies: No Past Medical History Surgeries: Yes (VASECTOMY,GANGLION CYST REMOVED,ACL REPAIR) Respiratory: Yes (ASTHMA) Currently Using CPAP: Yes Cardiac: No Neurological: No Reproductive Disorders: No Genitourinary: No Gastrointestinal: No Musculoskeletal: No Endocrine: Yes Diabetes, Insulin dep HEENT: No Cancer: No Psychosocial: No (BIPOLAR) Integumentary: No Blood Disorders: No Family Medical History No Pertinent Family Hx Physical Exam Vital Signs Vital Signs - First Documented 09/27/20 15:52 Temp 36.8 Pulse 106 Resp 24 B/P (MAP) 85/47 (60) Pulse Ox 92 Capillary Refill : Height, Weight, BMI Height: 5'8.00" Weight: 252lbs. 4.0oz. 114.092201ik; 38.4 BMI Method:Stated General Appearance: No Apparent Distress, WD/WN HEENT: PERRL/EOMI Respiratory: No Accessory Muscle Use, No Respiratory Distress, Other (Slightly labored breathing with some crackles noted in the right base posteriorly) Cardiovascular: Regular Rate, Rhythm, No Murmur, Normal Peripheral Pulses, Tachycardia Gastrointestinal: Normal Bowel Sounds, Non Tender, Soft Extremity: Normal Inspection, Normal Range of Motion, Non Tender, No Calf Tenderness, No Pedal Edema Neurologic/Psychiatric: Alert, Oriented x3, No Motor/Sensory Deficits, Normal Mood/Affect Skin: Normal Color, Warm/Dry Focused Exam Lactate Level 09/27/20 16:00: Lactic Acid Level 0.93 Lactic Acid Level Laboratory Tests Test 09/27/20 16:00 Lactic Acid Level 0.93 MMOL/L (0.50-2.00) Progress/Results/Core Measures Results/Orders Lab Results Laboratory Tests Test 09/27/20 16:00 09/27/20 16:05 Range/Units White Blood Count 5.5 4.3-11.0 10^3/uL Red Blood Count 3.58 L 4.30-5.52 10^6/uL Hemoglobin 10.9 L 13.3-17.7 g/dL Hematocrit 32 L 40-54 % Mean Corpuscular Volume 90 80-99 fL Mean Corpuscular Hemoglobin 30 25-34 pg Mean Corpuscular Hemoglobin Concent 34 32-36 g/dL Red Cell Distribution Width 13.9 10.0-14.5 % Platelet Count 80 L 130-400 10^3/uL Mean Platelet Volume 9.7 9.0-12.2 fL Immature Granulocyte % (Auto) 1 % Neutrophils (%) (Auto) 72 42-75 % Lymphocytes (%) (Auto) 21 12-44 % Monocytes (%) (Auto) 6 0-12 % Eosinophils (%) (Auto) 0 0-10 % Basophils (%) (Auto) 0 0-10 % Neutrophils # (Auto) 4.0 1.8-7.8 10^3/uL Lymphocytes # (Auto) 1.2 1.0-4.0 10^3/uL Monocytes # (Auto) 0.3 0.0-1.0 10^3/uL Eosinophils # (Auto) 0.0 0.0-0.3 10^3/uL Basophils # (Auto) 0.0 0.0-0.1 10^3/uL Immature Granulocyte # (Auto) 0.0 0.0-0.1 10^3/uL D-Dimer 0.28 0.00-0.49 UG/ML Sodium Level 133 L 135-145 MMOL/L Potassium Level 4.7 3.6-5.0 MMOL/L Chloride Level 106 98-107 MMOL/L Carbon Dioxide Level 18 L 21-32 MMOL/L Anion Gap 9 5-14 MMOL/L Blood Urea Nitrogen 32 H 7-18 MG/DL Creatinine 2.36 H 0.60-1.30 MG/DL Estimat Glomerular Filtration Rate 35 BUN/Creatinine Ratio 14 Glucose Level 117 H 70-105 MG/DL Lactic Acid Level 0.93 0.50-2.00 MMOL/L Calcium Level 9.2 8.5-10.1 MG/DL Corrected Calcium 9.1 8.5-10.1 MG/DL Total Bilirubin 0.2 0.1-1.0 MG/DL Aspartate Amino Transf (AST/SGOT) 22 5-34 U/L Alanine Aminotransferase (ALT/SGPT) 18 0-55 U/L Alkaline Phosphatase 51 40-136 U/L Troponin I 0.036 H <0.028 NG/ML C-Reactive Protein High Sensitivity 6.04 H 0.00-0.50 MG/DL Total Protein 7.7 6.4-8.2 GM/DL Albumin 4.1 3.2-4.5 GM/DL Procalcitonin 0.20 H <0.10 NG/ML Coronavirus 2019 (DIAN) Positive H Negative Micro Results Microbiology 09/27/20 Influenza Types A,B Antigen (PIERO) - Final, Complete My Orders Orders - JOSE NICK MD Ed Iv/Invasive Line Start (09/27/20 16:07) Cbc With Automated Diff (09/27/20 16:07) Comprehensive Metabolic Panel (09/27/20 16:07) Lactic Acid Analyzer (09/27/20 16:07) Blood Culture (09/27/20 16:07) Procalcitonin (Pct) (09/27/20 16:07) Hs C Reactive Protein (09/27/20 16:07) Fibrin Degradation Products (09/27/20 16:07) Chest 1 View, Ap/Pa Only (09/27/20 16:07) Covid 19 Inhouse Test (09/27/20 16:07) Influenza A And B Antigens (09/27/20 16:07) Ns Iv 1000 Ml (Sodium Chloride 0.9%) (09/27/20 16:07) Ns Iv 1000 Ml (Sodium Chloride 0.9%) (09/27/20 16:05) Troponin I (09/27/20 16:10) Ns Iv 1000 Ml (Sodium Chloride 0.9%) (09/27/20 16:30) Ekg Tracing (09/27/20 16:48) Vital Signs/I&O 09/27/20 15:52 Temp 36.8 Pulse 106 Resp 24 B/P (MAP) 85/47 (60) Pulse Ox 92 Progress Progress Note : Time: 16:14 Progress Note 49-year-old male presents to the emergency department today with a chief complaint of lightheadedness and shortness of breath. Evaluation today includes a physical exam, CBC, Chem-12, blood culture, lactic acid, procalcitonin, CRP, i nfluenza test as well as a COVID-19 test and a chest x-ray. Patient looks well on exam. He has a flattened affect. His blood pressure is 88 systolic. He is tachycardic. He is not hypoxic. Room air saturations are 93 to 94% on room air. Patient does have crackles on auscultation in the right base posteriorly. Suspect that he likely has COVID-19 pneumonia. I am going to give him a fluid bolus of 2 L of normal saline and further management to be determined based on laboratory studies. 1709 Patient's chemistry returned with a significant increase in his serum creatinine at 2.39. Patient's troponin is also marginally elevated I suspect this is troponin leak secondary to this acute kidney injury. Patient's EKG is reviewed and shows a normal sinus rhythm at [address]-T wave changes in leads III and aVF. No ST elevation or depression is noted no ectopy. Patient will be admitted to the hospital for treatment of his low blood pressure and acute kidney injury in the setting of COVID-19 infection. Case is discussed with Dr. Olivier who accepts the patient for admission. Diagnostic Imaging Diagonstic Imaging: Xray Plain Films/CT/US/NM/MRI: chest Comments [facility] [address] [place], [place] NAME: LAURA GLOVER III [facility] REC#: [id number] PT STATUS: REG ER : 1970 PHYSICIAN: JOSE NICK MD ADMIT DATE: 09/27/20/ER Signed Date of Exam:09/27/20 CHEST 1 VIEW, AP/PA ONLY EXAMINATION: Chest radiograph, portable AP view. DATE: 09/27/2020 at 4:44 PM. INDICATION: 49-year-old male, cough and shortness of breath. The patient is Covid positive. COMPARISON: October 18, 2017. FINDINGS: The heart size and mediastinal contours are unchanged. There is no identified pneumothorax. There is no large pleural effusion. There are chronic appearing right rib deformities. There does appear to be airspace consolidation in the right mid and lower lung zones. IMPRESSION: Nonspecific airspace consolidation in the right mid and lower lung zones which could relate to infiltrate and/or atelectasis. The report was faxed to Infection Control by [facility]@4:49 PM. Dictated by: Dictated on workstation # [id number] Dict: 09/27/20 1646 Trans: 09/27/20 1651 [id number] Interpreted by: RENATA RUTLEDGE MD Electronically signed by: RENATA RUTLEDGE MD 09/27/201650 Departure Communication (Admissions) Time/Spoke to Admitting Phy: 17:[address] Olivier who accepts the patient for observation admission at this time Impression Primary Impression: Acute kidney injury Additional Impressions: Hypotension Qualified Codes: I95.9 - Hypotension, unspecified COVID-19 Disposition: ADMITTED INPATIENT Condition: Stable Admissions Decision to Admit Reason: Admit from ER (General) Decision to Admit/Date: Sep 27, 2020 Time/Decision to Admit Time: 17:09 Departure-Patient Inst. Referrals: [facility] (PCP/Family) Primary Care Physician JOSE NICK MD Sep 27, 2020 16:16
[2020-09-27 16:17] LABS: BASOPHILS % (AUTO) 0 % (0-10); EOSINOPHILS % (AUTO) 0 % (0-10); HEMATOCRIT 32 % (40-54); HEMOGLOBIN 10.9 g/dL (13.3-17.7); LYMPHOCYTES # (AUTO) 1.2 10^3/uL (1.0-4.0); LYMPHOCYTES % (AUTO) 21 % (12-44); MEAN CORPUSCULAR HEMOGLOBIN 30 pg (25-34); MEAN CORPUSCULAR HGB CONC 34 g/dL (32-36); MEAN CORPUSCULAR VOLUME 90 fL (80-99); MEAN PLATELET VOLUME 9.7 fL (9.0-12.2); MONOCYTES # (AUTO) 0.3 10^3/uL (0.0-1.0); MONOCYTES % (AUTO) 6 % (0-12); NEUTROPHILS % (AUTO) 72 % (42-75); PLATELET COUNT 80 10^3/uL (130-400); WHITE BLOOD COUNT 5.5 10^3/uL (4.3-11.0)
[2020-09-27 16:26] LABS: ALBUMIN 4.1 GM/DL (3.2-4.5); POTASSIUM 4.7 MMOL/L (3.6-5.0)
[2020-09-27 16:27] LABS: CALCIUM 9.2 MG/DL (8.5-10.1)
[2020-09-27 16:29] LABS: TOTAL PROTEIN 7.7 GM/DL (6.4-8.2)
[2020-09-27 16:30] LABS: BILIRUBIN,TOTAL 0.2 MG/DL (0.1-1.0)
[2020-09-27 16:32] LABS: CREATININE SERUM 2.36 MG/DL (0.60-1.30)
--- NOTE | 2020-09-27 16:50 | Diagnostic Imaging Report ---
EXAMINATION: Chest radiograph, portable AP view. DATE: 09/27/2020 at 4:44 PM. INDICATION: 49-year-old male, cough and shortness of breath. The patient is Covid positive. COMPARISON: October 18, 2017. FINDINGS: The heart size and mediastinal contours are unchanged. There is no identified pneumothorax. There is no large pleural effusion. There are chronic appearing right rib deformities. There does appear to be airspace consolidation in the right mid and lower lung zones. IMPRESSION: Nonspecific airspace consolidation in the right mid and lower lung zones which could relate to infiltrate and/or atelectasis. The report was faxed to Infection Control by celia@4:49 PM. Dictated by: Dictated on workstation # [id number]
[2020-09-27 17:45] VITALS: BP 113/57
[2020-09-27] MEDS ORDERED: FLU QUADRIvalent (3YOA+) 60 mcg/0.5 ml 2020-21 (AFLURIA) IM ONE (19:30)
[2020-09-27 20:16] VITALS: BP 113/54
[2020-09-27 20:32] VITALS: BP 85/47
[2020-09-27] MEDS: inSUlin ASPART (NovoLOG) 1 UNIT/0.01 ML (CHARGE PER UNIT) SC SCH (20:33)
[2020-09-27] MEDS ORDERED: RT-ALBUTEROL INHALER HFA (VENTOLIN HFA) 18 GM IH PRN (21:00)
[2020-09-28 00:15] VITALS: BP 124/62
[2020-09-28] MEDS: NS IV 1000 ML 1,000 ML IV SCH ×2 (01:37→09:32)
[2020-09-28 04:08] VITALS: BP 118/56
[2020-09-28] MEDS: inSUlin ASPART (NovoLOG) 1 UNIT/0.01 ML (CHARGE PER UNIT) SC SCH ×2 (06:23→11:18)
[2020-09-28 07:08] LABS: HEMOGLOBIN 10.7 g/dL (13.3-17.7); MEAN PLATELET VOLUME 9.8 fL (9.0-12.2); WHITE BLOOD COUNT 6.1 10^3/uL (4.3-11.0)
[2020-09-28 07:20] LABS: CHLORIDE 112 MMOL/L (98-107); SODIUM 138 MMOL/L (135-145)
[2020-09-28 07:21] LABS: CALCIUM 8.7 MG/DL (8.5-10.1); GLUCOSE 107 MG/DL (70-105)
[2020-09-28 07:23] LABS: CARBON DIOXIDE 15 MMOL/L (21-32)
[2020-09-28 07:25] LABS: CREATININE SERUM 1.05 MG/DL (0.60-1.30); GFR ESTIMATED > 60
[2020-09-28 07:26] LABS: BUN/CREATININE RATIO 14
[2020-09-28 08:00] VITALS: BP 116/65
[2020-09-28] MEDS: RT-ALBUTEROL INHALER HFA (VENTOLIN HFA) 18 GM IH SCH ×2 (08:35→11:30)
[2020-09-28 12:00] VITALS: BP 127/71
[2020-09-28] MEDS ORDERED: CLON1TAB13 PO (13:29)
[2020-09-28] MEDS ORDERED: SIMV20TA26 PO (13:29)
[2020-09-28] MEDS ORDERED: PALI3TAB2 PO (13:29)
[2020-09-28] MEDS ORDERED: FLUT1AER INH (13:29)
[2020-09-28] MEDS ORDERED: TRH2T PO (13:29)
[2020-09-28] MEDS ORDERED: MELA10CA2 PO (13:29)
[2020-09-28] MEDS ORDERED: TMSL.4C PO (13:29)
[2020-09-28] MEDS ORDERED: MONT10TA32 PO (13:29)
[2020-09-28] MEDS ORDERED: INSU100I29 SQ (13:29)
[2020-09-28] MEDS ORDERED: DEUT6TAB PO (13:29)
[2020-09-28] MEDS ORDERED: CELE-63 PO (13:29)
[2020-09-28] MEDS ORDERED: METF-397 PO (13:29)
[2020-09-28] MEDS ORDERED: PANT40TA52 PO (13:29)
[2020-09-28] MEDS ORDERED: LAMO200T50 PO (13:29)
[2020-09-28] MEDS ORDERED: FLUT9.9S NS (13:29)
[2020-09-28] MEDS ORDERED: PALI9TAB PO (13:29)
[2020-09-28] MEDS ORDERED: ALBU18HF2 IH (13:33)
--- NOTE | 2020-09-28 13:34 | Discharge Summary ---
Discharge [facility] Discharge Medications New, Converted or Re-Newed RX: Transmitted to Pharmacy New Medications: Albuterol Sulfate (Ventolin Hfa) 18 Gm Hfa.aer.ad 2 PUFF IH Q4H PRN for SOA, #1 INHALER 0 Refills Continued Medications: Amlodipine Besylate (Amlodipine Besylate) 5 Mg Tablet 5 MG PO DAILY, TAB Celecoxib (Celecoxib) 200 Mg Capsule 200 MG PO DAILY Clonazepam (Clonazepam) 1 Mg Tablet 1 MG PO BID Deutetrabenazine (Austedo) 6 Mg Tablet 1 TAB PO DAILY Ezetimibe (Zetia) 10 Mg Tablet 10 MG PO HS Fluticasone Propionate (Flonase Allergy Relief) 9.9 Ml [place].susp 1 SPRAY NS BID, #1 EACH 1 SPRAY EACH NARE DAILY Fluticasone/Vilanterol (Breo Ellipta 100-25 Mcg INH) 1 Each Blst.w.dev 1 PUFF INH DAILY Insulin Detemir (Levemir Flextouch) 100 Unit/1 Ml Insuln.pen 0 SQ UD 36 units in the morning and 50 units in the evening Lamotrigine (Lamotrigine ER) 200 Mg Tab.er.24 200 MG PO BID Melatonin (Melatonin) 10 Mg Capsule 10 MG PO HS, CAP Metformin HCl (Metformin HCl) 500 Mg Tablet 500 MG PO BID Metoprolol Tartrate (Metoprolol Tartrate) 50 Mg Tablet 50 MG PO BID, TAB Montelukast Sodium (Montelukast Sodium) 10 Mg Tablet 10 MG PO DAILY Paliperidone (Invega) 3 Mg Tab.er.24 3 MG PO DAILY Take with 9 mg tab Paliperidone (Invega) 9 Mg Tablet.sa 9 MG PO DAILY Take with the 3 mg tab Pantoprazole Sodium (Pantoprazole Sodium) 40 Mg Tablet.dr 1 TAB PO DAILY Simvastatin (Simvastatin) 20 Mg Tablet 20 MG PO DAILY Spironolactone (Spironolactone) 25 Mg Tablet 25 MG PO DAILY, TAB Tamsulosin HCl (Flomax) 0.4 Mg Cap 2 CAP PO DAILY Trihexyphenidyl HCl (Trihexyphenidyl HCl) 2 Mg Tablet 2 MG PO BID Valsartan (Valsartan) 320 Mg Tablet 320 MG PO DAILY, TAB Patient Instructions Goal/Follow Up Appt: Follow up with Phoenix Pardo via telephone visit on 10/04 at 2:40 pm. Return to The Hospital For: Shortness of breath, confusion, weakness, dizziness, poor urine output Activity & Diet Discharge Diet: ADA Diet Activity as Tolerated: Yes SALINAS FOX MD Sep 28, 2020 13:34
[2020-09-28 16:00] VITALS: BP 127/71
--- NOTE | 2020-09-28 17:26 | Short Stay Summary ---
History of Present Illness History of Present Illness Reason for visit/HPI Pt admitted after having somnolence, excessive fatigue at home. has COVID and is inpatient, he was tested negative initially after her dx, but positive yesterday on admission. He was found to have CHANDRIKA. He states he is feeling much better today, tolerated breakfast and denies concerns. He has no shortness of breath, no chest pain, no cough. Date of Admission Sep 27, 2020 at 17:04 Date of Discharge Sep 28, 2020 at 16:00 Time Seen by Provider: 12:00 Attending Physician Soy,Salinas Gonzalez MD Admitting Physician [place] Consult Allergies and Home Medications Allergies Coded Allergies: No Known Drug Allergies (Unverified , 04/25/10) Home Medications Albuterol Sulfate 18 Gm Hfa.aer.ad, 2 PUFF IH Q4H PRN for SOA Prescribed by: SALINAS FOX on 09/28/20 1333 Amlodipine Besylate 5 Mg Tablet, 5 MG PO DAILY, (Reported) Celecoxib 200 Mg Capsule, 200 MG PO DAILY, (Reported) Clonazepam 1 Mg Tablet, 1 MG PO BID, (Reported) Deutetrabenazine 6 Mg Tablet, 1 TAB PO DAILY, (Reported) Ezetimibe 10 Mg Tablet, 10 MG PO HS, (Reported) Fluticasone Propionate 9.9 Ml [place].susp, 1 SPRAY NS BID, (Reported) 1 SPRAY EACH NARE DAILY Fluticasone/Vilanterol 1 Each Blst.w.dev, 1 PUFF INH DAILY, (Reported) Insulin Detemir 100 Unit/1 Ml Insuln.pen, 0 SQ UD, (Reported) 36 units in the morning and 50 units in the evening Lamotrigine 200 Mg Tab.er.24, 200 MG PO BID, (Reported) Melatonin 10 Mg Capsule, 10 MG PO HS, (Reported) Metformin HCl 500 Mg Tablet, 500 MG PO BID, (Reported) Metoprolol Tartrate 50 Mg Tablet, 50 MG PO BID, (Reported) Montelukast Sodium 10 Mg Tablet, 10 MG PO DAILY, (Reported) Paliperidone 3 Mg Tab.er.24, 3 MG PO DAILY, (Reported) Take with 9 mg tab Paliperidone 9 Mg Tablet.sa, 9 MG PO DAILY, (Reported) Take with the 3 mg tab Pantoprazole Sodium 40 Mg Tablet.dr, 1 TAB PO DAILY, (Reported) Simvastatin 20 Mg Tablet, 20 MG PO DAILY, (Reported) Spironolactone 25 Mg Tablet, 25 MG PO DAILY, (Reported) Tamsulosin HCl 0.4 Mg Cap, 2 CAP PO DAILY, (Reported) Trihexyphenidyl HCl 2 Mg Tablet, 2 MG PO BID, (Reported) Valsartan 320 Mg Tablet, 320 MG PO DAILY, (Reported) Patient Home Medication List Home Medication List Reviewed: Yes Past Nlfwhxr-Vhiexm-Aadmlm Hx Patient Social History Alcohol Beverage of Choice: Beer Smoking Status: Former Smoker 2nd Hand Smoke Exposure: No Recent Hopitalizations: No Have you traveled recently?: No Alcohol Use?: No Pt feels they are or have been: No Immunizations Up To Date Tetanus Booster (TDap): Unknown Date of Pneumonia Vaccine: Jul 25, 2014 Date of Influenza Vaccine: Oct 18, 2017 Seasonal Allergies Seasonal Allergies: No Surgeries Yes (VASECTOMY,GANGLION CYST REMOVED,ACL REPAIR) Respiratory Yes (ASTHMA) Currently Using CPAP: Yes Cardiovascular No Neurological No Reproductive System Hx Reproductive Disorders: No Genitourinary No Gastrointestinal No Musculoskeletal No Endocrine History of Endocrine Disorders: Yes Endocrine Disorders: Diabetes, Insulin dep HEENT History of HEENT Disorders: No Cancer No Psychosocial History of Psychiatric Problem: Yes Integumentary History of Skin or Integumenta: No Blood Transfusions History of Blood Disorders: No Family Medical History Significant Family History: No Pertinent Family Hx Review of Systems Constitutional: No fever; malaise EENTM: No nose congestion, No throat pain Respiratory: No cough, No short of breath Cardiovascular: No chest pain Gastrointestinal: No abdominal pain, No diarrhea, No nausea, No vomiting Genitourinary: no symptoms reported Musculoskeletal: no symptoms reported Skin: no symptoms reported Psychiatric/Neurological: No Symptoms Reported Physical Exam Vital Signs Vital Signs - First Documented 09/27/20 09/27/20 09/27/20 15:52 17:45 20:32 Temp 36.8 Pulse 106 Resp 24 B/P (MAP) 85/47 (60) Pulse Ox 92 O2 Delivery Room Air FiO2 21 Capillary Refill : Less Than 3 Seconds Height, Weight, BMI Height: 5'8.00" Weight: 252lbs. 4.0oz. 114.612978wj; 36.70 BMI Method:Stated General Appearance: No Apparent Distress, Obese Respiratory: Lungs Clear, Normal Breath Sounds, No Accessory Muscle Use Cardiovascular: Regular Rate, Rhythm, No Murmur Gastrointestinal: Normal Bowel Sounds, Non Tender, Soft Extremity: No Pedal Edema Neurologic/Psychiatric: Alert, Normal Mood/Affect Skin: Normal Color, Warm/Dry Short Stay Diagnosis Discharge Diagnosis-Short Stay Admission Diagnosis: Sars-CoV-2 infection Acute kidney injury Dehydration Type II diabetes mellitus Asthma Multiple psychiatric disorders Thrombocytopenia Elevated troponin Hypotension Final Discharge Diagnosis: Sars-CoV-2 infection- no respiratory symptoms Acute kidney injury- resolved Dehydration Type II diabetes mellitus Asthma Multiple psychiatric disorders Elevated troponin Thrombocytopenia- improving Hypotension- resolved Conclusion Labs Laboratory Tests 09/27/20 20:16: Glucometer 126H 09/28/20 06:10: Glucometer 111H 09/28/20 07:00: White Blood Count 6.1, Red Blood Count 3.52L, Hemoglobin 10.7L, Hematocrit 32L, Mean Corpuscular Volume 90, Mean Corpuscular Hemoglobin 30, Mean Corpuscular Hemoglobin Concent 34, Red Cell Distribution Width 14.1, Platelet Count 94L, Me an Platelet Volume 9.8, Sodium Level 138, Potassium Level 5.0, Chloride Level 112H, Carbon Dioxide Level 15L, Anion Gap 11, Blood Urea Nitrogen 15, Creatinine 1.05, Estimat Glomerular Filtration Rate > 60, BUN/Creatinine Ratio 14, Glucose Level 107H, Calcium Level 8.7, Troponin I 0.041H 09/28/20 11:09: Glucometer 103 09/28/20 14:10: Troponin I 0.051H Microbiology 09/27/20 Influenza Types A,B Antigen (PIERO) - Final, Complete Conclusion/Plan Pt admitted and received IV hydration overnight with improvement in creatinine, feeling well and taking good oral in the morning, felt ready for d/c. No respiratory symptoms and no hyoxia, no chest pain, so mild elevation in troponin thought to be related to COVID, will follow up with Cardiology outpatient, in structed to come back to the ER immediately if any chest pain occurred. Given that he had no respiratory symptoms and is at high risk for severe COVID19, discussed with pharmacy and patient and he did decide to get bamlanivimab outpatient, this will be set up through clinic. Also noted to have low platelets, will need recheck outpatient. He also had initial low BP which was improved to normal BP on discharge, instructions given to hold home BP meds and monitor with parameters to restart BP meds as indicated. His has a BP cuff and expressed understanding. SALINAS FOX MD Sep 28, 2020 17:26
== END 2020-09-28 13:16 | disposition home or self-care (01) ==
LOC: EDUNIT# 15:36 → ER 15:38 → UNDOADMOB 17:04 → 4TH 17:04 → UNDODISOB 09-28 16:00
PROVIDERS: ADMIT Family Medicine; ATTEND Family Medicine
DX: U07.1 COVID-19 (principal); J45.909 Unspecified asthma, uncomplicated; E11.9 Type 2 diabetes mellitus without complications; D69.6 Thrombocytopenia, unspecified; R77.8 Other specified abnormalities of plasma proteins; F99 Mental disorder, not otherwise specified; E86.0 Dehydration; Z79.51 Long term (current) use of inhaled steroids; Z79.4 Long term (current) use of insulin; Z79.899 Other long term (current) drug therapy; Z87.891 Personal history of nicotine dependence
CPT/HCPCS: 71045; 80048; 80053; 82962 ×2; 83605; 84145; 84484 ×2; 85025; 85027; 85379; 86141; 87040; 87804; 93005; 94640; 94760; 99284; U0002; 36415; 87635

== ENCOUNTER → 2020-09-29 | Outpatient (CLI) | payer MEDICARE ==
[~2020-09-29] MED LIST changes: +ALBU18HF2 IH; +BAMLANIVIMAB (NON FORM) 700 MG in NS (IVPB) 250 ML IV ONE; +CELE-63 PO; +CLON1TAB13 PO; +DEUT6TAB PO; +EPINEPHrine INJECTION 1 MG/ML AMP IM PRN; +FLUT1AER INH; +FLUT9.9S NS; +INSU100I29 SQ; +LAMO200T50 PO; +MELA10CA2 PO; +METF-397 PO; +MONT10TA32 PO; +PALI3TAB2 PO; +PALI9TAB PO; +PANT40TA52 PO; +SIMV20TA26 PO; +TRH2T PO; +diphenhydrAMINE 50 MG/ML INJ (BENADRYL) IV PRN
[2020-09-29 12:50] VITALS: BP 127/62
[2020-09-29 13:43] VITALS: BP 124/71
== END ==
LOC: INFUSION 12:25
PROVIDERS: ATTEND Family Medicine
DX: U07.1 COVID-19 (principal)

== ENCOUNTER → 2020-10-24 | Outpatient (CLI) | payer MEDICARE ==
[~2020-10-24] MED LIST changes: -BAMLANIVIMAB (NON FORM) 700 MG in NS (IVPB) 250 ML IV ONE; -EPINEPHrine INJECTION 1 MG/ML AMP IM PRN; -diphenhydrAMINE 50 MG/ML INJ (BENADRYL) IV PRN
== END ==
LOC: CARD 08:30
PROVIDERS: ATTEND Internal Medicine Cardiovascular Disease
DX: I11.9 Hypertensive heart disease without heart failure (principal); I34.0 Nonrheumatic mitral (valve) insufficiency
CPT/HCPCS: 93306

== ENCOUNTER → 2020-10-25 | Outpatient (CLI) | payer MEDICARE ==
[~2020-10-25] VITALS: Ht 172 cm; Wt 107.0 kg
[~2020-10-25] MED LIST changes: +CATHETER FLUSH 10 ML SYR IV PRN; +REGADENOSON 0.4 MG/5 ML SYR (LEXISCAN) IV ONE
[2020-10-25 09:01] VITALS: BP 170/97
--- NOTE | 2020-10-25 15:19 | Cardiology Stress Test Report ---
Stress Test Report Date of Procedure/Referring: Date of Procedure: Oct 25, 2020 PCP Shawn Rocha MD Admitting Physician Center/[facility] Indications: HTN Baseline Heart Rate: 96 Baseline Blood Pressure: Blood Pressure Systolic: 170 Blood Pressure Diastolic: 97 Baseline Vitals Vital Signs Date Time Temp Pulse Resp B/P (MAP) Pulse Ox O2 Delivery O2 Flow Rate FiO2 10/25/20 09:01 95 18 170/97 (121) 99 Room Air Baseline EKG: Baseline EKG: sinus rhythm, incomplete right bundle branch block Summary After explaining the procedure to the patient, he signed a consent and then brought to the stress nuclear laboratory. Patient received 0.4 mg Lexiscan for stress test, ECG, heart rate and blood pressure were monitored continuously. Resting and stress dose of radio tracer were injected, imaging was acquired and reviewed in short axis, horizontal long axis and vertical long axis views. TID: 1.09 SSS: 4 SDS: 4 EF: 53 1. Patient tolerated Lexiscan well 2. Mild decreased uptake at the basal to mid anterior lateral wall with subtle reversibility, no significant ischemia or infarction on SPECT images 3. Normal left ventricular size, EF 53 percent SHAWN ROCHA MD Oct 25, 2020 15:19
== END ==
LOC: CARD 07:45
PROVIDERS: ATTEND Internal Medicine Cardiovascular Disease
DX: R07.9 Chest pain, unspecified (principal); I10 Essential (primary) hypertension
CPT/HCPCS: 78452; 93017; A9502

== ENCOUNTER 2021-04-05 05:31 | Outpatient (CLI) | payer MEDICARE ==
[~2021-04-05] VITALS: Ht 172.7 cm; Wt 111.4 kg
[~2021-04-05 05:31] MED LIST changes: -CATHETER FLUSH 10 ML SYR IV PRN; -REGADENOSON 0.4 MG/5 ML SYR (LEXISCAN) IV ONE
== END 2021-04-05 10:42 | disposition home or self-care (01) ==
LOC: PREOP 05:31
PROVIDERS: ATTEND Surgery
DX: Z01.818 Encounter for other preprocedural examination (principal)

== ENCOUNTER 2021-04-12 07:23 | Day surgery (SDC) | payer MEDICARE ==
[2021-04-12] VITALS (11 sets, daily range): BP systolic 104–168; BP diastolic 68–104
[~2021-04-12] VITALS: Ht 172.7 cm; Wt 111.4 kg
[~2021-04-12 07:23] MED LIST changes: +ceFAZolin 2 GM IV Premixed 50 ML IV ONE
--- NOTE | 2021-04-12 07:53 | Progress Note-Pre Operative ---
Pre-Operative Progress Note H&P Reviewed The H&P was reviewed, patient examined and no changes noted. Date Seen by Provider: Apr 12, 2021 Time Seen by Provider: 07:53 Date H&P Reviewed: Apr 12, 2021 Time H&P Reviewed: 07:53 Pre-Operative Diagnosis: right inguinal hernia LEIA LIND DO Apr 12, 2021 07:53
[2021-04-12] MEDS: LACTATED RINGERS 1,000 ML IV PRN ×2 (08:17→09:51)
[2021-04-12] MEDS ORDERED: ONDANSETRON 4 MG/2 ML (SDV) Z0FRAN ONE (08:39)
[2021-04-12] MEDS ORDERED: ROCURONIUM 10 MG/ML 5 ML SYRINGE IV ONE (08:39)
[2021-04-12] MEDS ORDERED: proPOfol 200 MG/20 ML (DIPRIVAN) VIAL IV ONE (08:39)
[2021-04-12] MEDS ORDERED: LIDOCAINE PF 2% 5 ML (XYLOCAINE) VIAL ONE (08:39)
[2021-04-12] MEDS ORDERED: fentaNYL INJ 100 MCG/2 ML AMP ONE (08:39)
[2021-04-12] MEDS ORDERED: MIDAZOLAM 2 MG/2 ML (VERSED) VIAL ONE (08:39)
[2021-04-12] MEDS ORDERED: LIDOCAINE/EPI 1%-1:100,000 (XYLOCAINE) 20ML ONE (08:40)
[2021-04-12] MEDS ORDERED: NEOSTIGMINE 3 MG/3 ML VIAL ONE (09:58)
[2021-04-12] MEDS ORDERED: GLYCOPYRROLATE 0.2 MG/ML (ROBINUL) 2 ML VIAL ONE (09:58)
[2021-04-12] MEDS ORDERED: SEVOFLURANE (ULTANE) 15 ML INHAL SOLN ONE (09:59)
[2021-04-12] MEDS ORDERED: PROMETHAZINE INJ 25 MG/ML (PHENERGAN) AMP IVP ONE (10:15)
[2021-04-12] MEDS ORDERED: ONDANSETRON 4 MG/2 ML (SDV) Z0FRAN IVP PRN (10:15)
[2021-04-12] MEDS ORDERED: MEPERIDINE (DEMEROL) INJ 50 MG/ML IVP ONE (10:15)
[2021-04-12] MEDS ORDERED: morphine INJ 10 MG/ML 1ML (SYR OR VIAL) IVP ONE (10:15)
[2021-04-12] MEDS ORDERED: HYDROmorphone 2 MG/ML VIAL (DILAUDID) IV ONE (10:15)
[2021-04-12] MEDS ORDERED: HYDROcodone/APAP 5 MG/325 MG (LORTAB) TAB ONE (11:25)
[2021-04-12] MEDS ORDERED: ACHD5005 PO (11:26)
[2021-04-12] MEDS ORDERED: DOCU-143 PO (11:26)
--- NOTE | 2021-04-12 11:27 | Discharge Inst-Simple/Standard ---
Discharge Inst-Standard Discharge Medications New, Converted or Re-Newed RX: Transmitted to Pharmacy Patient Instructions/Follow Up Plan of Care/Instructions/FU: 3 weeks Deborah Activity as Tolerated: Yes Discharge Diet: Regular Diet Other Inst to Patient Follow up Appt: Make appointment for 3 week. Instructions: No lifting greater than 10 pounds. No strenuous activity. May shower in 24 hours, no tub bath or soaking. Use incentive spirometer at home as directed. No Smoking Skin/Wound Care: You have special glue over your incision that will fall off on it's own. Symptoms to Report: Appetite Changes, Extremity Discoloration, Numbness/Tingling, Swelling Increased, Bleeding Excessive, Eyesight Changes, Pain Increased, Urine Color Change, Constipation(Persistent), Fever over 101 degree F, Pain/Pressure in chest, Urinating Difficulty, Cough Up/Vomit Blood, Heart Beat Irreg/Pounding, Pain/Pressure in jaw, Vaginal Bleeding Increase, Cramps in feet or legs, Lightheadedness, Pain/Pressure in shoulder, Diarrhea(Persistent), Memory Changes Suddenly, Questions/Concerns, Weight gain consecutive days, Dizziness/Fainting, Nausea/Vomiting, Shortness of Breath, Weight gain over 2 pounds If questions or concerns contact your physician Or seek help at emergency department. LEIA LIND DO Apr 12, 2021 11:27
[2021-04-12] MEDS ORDERED: HYDROcodone/APAP 5 MG/325 MG (LORTAB) TAB PO ONE (11:30)
--- NOTE | 2021-04-12 11:33 | Progress Note-Post Operative ---
Post-Operative Progess Note Surgeon (s)/Commission Specialist (s) Surgeon LEIA LIND DO Commission Specialist: Dr. Hutton to assist in retraction dissection and closure. Pre-Operative Diagnosis right inguinal hernia Post-Operative Diagnosis direct and indirect incarcerated inguinal hernia Procedure & Operative Findings Date of Procedure 04/12/21 Procedure Performed/Findings PROCEDURE: Open right direct, incarcerated indirect inguinal hernia repair COMPLICATIONS: None. INDICATIONS: The patient is a 50, male male with a inguinal hernia. He understands risks and benefits of procedure and wished to proceed with procedure. Consent was signed in the chart. DESCRIPTION OF PROCEDURE: The patient was taken to the operating suite, was prepped and draped in sterile fashion. Surgical pause was performed. Local anesthetic was infiltrated in the lower quadrant. Incision was made and cautery used to dissect down to the external oblique, which was then opened down through the external ring. The spermatic cord was then dissected around. A Jose drain was placed around it and there was no direct defect present. The direct defect was closed with 0- vicryl. An indirect hernia present which was then dissected off of spermatic cord. Fat incarcerated which was freed and reduced. Hernia sac was then and reduced, the defect closed using 0-vicryl. Using ProGrip mesh, this was secured at Lucas's ligament and then incorporated around the spermatic cord and placed under the external oblique. Hemostasis was achieved. The external oblique was then closed recreating the external ring and then the subcutaneous tissues were then reapproximated using 3-0 Vicryl and skin was then closed using 4-0 Monocryl in a subcuticular fashion. The abdomen was then washed and dried and Skin Affix was placed over the incision. The patient tolerated procedure well without any complications and taken to recovery room in stable condition. Anesthesia Type general Estimated Blood Loss Estimated blood loss (mL): minimal Specimens/Packing Specimens Removed LEIA Ansari DO Apr 12, 2021 11:33
[2021-04-12] MEDS ORDERED: BUPIVACAINE 0.25% 30 ML (SENSORCAINE) VIAL ONE (12:05)
--- NOTE | 2021-04-12 14:28 | Anesthesia-General Post-Op ---
General Patient Condition Mental Status/LOC: Same as Preop Cardiovascular: Satisfactory Nausea/Vomiting: Absent Respiratory: Satisfactory Pain: Controlled Complications: Absent Post Op Complications Complications None Follow Up Care/Instructions Patient Instructions None needed. Anesthesia/Patient Condition Patient Condition Patient is doing well, no complaints, stable vital signs, no apparent adverse anesthesia problems. No complications reported per nursing. BENI RITCHIE CRNA Apr 12, 2021 14:28
== END 2021-04-12 12:30 | disposition home or self-care (01) ==
LOC: SDC 07:23
PROVIDERS: ATTEND Surgery
DX: K40.30 Unilateral inguinal hernia, with obstruction, without gangrene, not specified as recurrent (principal); E11.9 Type 2 diabetes mellitus without complications; K21.9 Gastro-esophageal reflux disease without esophagitis; E66.9 Obesity, unspecified; I10 Essential (primary) hypertension; J44.9 Chronic obstructive pulmonary disease, unspecified; G47.33 Obstructive sleep apnea (adult) (pediatric); F32.9 Major depressive disorder, single episode, unspecified; F41.9 Anxiety disorder, unspecified; Z79.51 Long term (current) use of inhaled steroids; Z79.899 Other long term (current) drug therapy; Z79.84 Long term (current) use of oral hypoglycemic drugs; Z68.37 Body mass index [BMI] 37.0-37.9, adult; Z87.891 Personal history of nicotine dependence
CPT/HCPCS: 49507; 82947; 87081; C1781

== ENCOUNTER → 2021-07-16 | Outpatient (CLI) | payer MEDICARE ==
[~2021-07-16] MED LIST changes: +ACHD5005 PO; +DOCU-143 PO; +GADOTERATE 0.5 MMOL/ML (CLARISCAN) 20 ML VIAL IV ONE; -ceFAZolin 2 GM IV Premixed 50 ML IV ONE
--- NOTE | 2021-07-16 16:47 | Diagnostic Imaging Report ---
CLINICAL INDICATION: Patient with abnormal findings on CT. EXAM: MRI of the brain performed without and with 20 cc of Clariscan IV contrast. Sequences include axial DWI, ADC map, axial gradient echo, axial T2, axial FLAIR, axial T1, axial T1 post IV contrast, coronal T1 fat-sat post IV contrast, and sagittal T1 post IV contrast. COMPARISON: MRI of the brain without contrast dated 11/08/2007.. FINDINGS: There is no abnormal IV contrast enhancement. There are numerous focal, patchy confluent areas of high T2 signal seen throughout the subcortical, deep white matter, periventricular regions, septal callosal, left midbrain and left cerebellar regions consistent with demyelinating process. There is slight increased size of the nonenhanced high T2 signal in the posterior right temporal lobe periventricular region and posterior right frontal lobe periventricular region. Otherwise, the remainder of the high T2 signal lesions are stable. There is mild brain parenchymal volume loss. There is no hydrocephalus. There is no brain herniation or midline shift. There is no intracranial hemorrhage. Basal cisterns are unremarkable. Visualized [place] vascular structures are unremarkable. There are large amounts of consolidation and fluid involving ethmoid sinus and frontal sinus. There is moderate fluid and mucosal thickening involving both maxillary sinuses. Mastoid air cells are clear. IMPRESSION: 1: There is slight increased size of nonenhancing high T2 signal areas involving the posterior right temporal lobe periventricular region and posterior right frontal lobe periventricular region. Otherwise, the remainder of the multiple high T2 signal lesions in the supratentorial compartment, left cerebellum and left midbrain are stable. These findings are concerning for a demyelinating process such as multiple sclerosis. 2: There is severe diffuse paranasal sinusitis. Dictated by: Dictated on workstation # [id number]
== END ==
LOC: RAD 14:45
DX: J32.9 Chronic sinusitis, unspecified (principal); R93.89 Abnormal findings on diagnostic imaging of other specified body structures
CPT/HCPCS: 70553

== ENCOUNTER 2021-08-07 05:36 | Outpatient (CLI) | payer MEDICARE ==
[~2021-08-07] VITALS: Ht 172.7 cm; Wt 106.8 kg
[~2021-08-07 05:36] MED LIST changes: -GADOTERATE 0.5 MMOL/ML (CLARISCAN) 20 ML VIAL IV ONE; +MONT-40 PO; -MONT10TA32 PO
== END 2021-08-08 10:58 | disposition home or self-care (01) ==
LOC: PREOP 05:36
PROVIDERS: ATTEND Surgery
DX: Z01.818 Encounter for other preprocedural examination (principal)

== ENCOUNTER 2021-08-14 06:57 | Day surgery (SDC) | payer MEDICARE ==
[~2021-08-14] VITALS: Ht 173 cm; Wt 106.8 kg
[2021-08-14] MEDS ORDERED: LACTATED RINGERS 1,000 ML IV STA (07:06)
[2021-08-14] MEDS ORDERED: LACTATED RINGERS 1,000 ML IV ONE (07:08)
[2021-08-14 07:20] VITALS: BP 160/97
[2021-08-14] MEDS ORDERED: PROPOFOL INJECTION 50 ML IV ONE ×2 (07:24→08:29)
[2021-08-14] MEDS ORDERED: MIDAZOLAM 2 MG/2 ML (VERSED) VIAL ONE (07:24)
[2021-08-14 08:40] VITALS: BP 140/84
--- NOTE | 2021-08-14 08:42 | Progress Note-Post Operative ---
Post-Operative Progess Note Surgeon (s)/After School Program Coordinator (s) Surgeon LEIA LIND DO After School Program Coordinator: na Pre-Operative Diagnosis screening colonoscopy Post-Operative Diagnosis ascending colon polyp Procedure & Operative Findings Date of Procedure 08/14/21 Procedure Performed/Findings colonoscopy c hot bx polypectomy and placement resolution clip ascending colon Anesthesia Type per commodities broker Estimated Blood Loss Estimated blood loss (mL): none Specimens/Packing Specimens Removed ascending colon polyp LEIA LIND DO Aug 14, 2021 08:42
--- NOTE | 2021-08-14 08:43 | Discharge Inst-Simple/Standard ---
Discharge Inst-Standard Patient Instructions/Follow Up Plan of Care/Instructions/FU: 2 weeks Deborah Activity as Tolerated: Yes Discharge Diet: Regular Diet LEIA LIND DO Aug 14, 2021 08:42
[2021-08-14 08:45] VITALS: BP 140/83
[2021-08-14 08:50] VITALS: BP 122/76
[2021-08-14 09:10] VITALS: BP 140/105
[2021-08-14 09:19] VITALS: BP 140/105
--- NOTE | 2021-08-14 13:55 | OPERATIVE REPORT ---
DATE OF SERVICE: 08/14/2021 PREOPERATIVE DIAGNOSIS: Screening colonoscopy. POSTOPERATIVE DIAGNOSIS: Ascending colon polyp. PROCEDURE: Colonoscopy with hot biopsy polypectomy of the ascending colon with Resolution clip placement. SURGEON: Leia Cabrera DO ANESTHESIA: Per ACQUISITION CONSULTANT. ESTIMATED BLOOD LOSS: Scant. COMPLICATIONS: None. INDICATIONS: The patient is a 50-year-old male needing screening colonoscopy. He understands risks and benefits of procedure, wishes to proceed. Consent was signed in the chart. DESCRIPTION OF PROCEDURE: The patient was taken to the endoscopy suite, placed in left lateral recumbent position. Timeout was performed. Digital rectal exam was performed. No palpable polyps, masses or ulcerations. Scope was inserted in the rectum and advanced all the way to cecum with minimal difficulty. Prep was adequate with irrigation and suction. Scope was then slowly retracted back. No polyps, masses or ulcerations in the cecum. In ascending colon, polyp was present, which hot biopsy polypectomy was performed. Some bleeding from the base of the polyp, so a Resolution clip was placed. Scope was then continuously retracted back. No polyps, masses or ulcerations within the remainder of the ascending, transverse, descending and sigmoid colon. Once in the rectum, scope was retroflexed noting no other pathology. Scope was returned to its normal position, slowly withdrawn until completely removed. The patient tolerated procedure well without any complications, taken to recovery room in stable condition. RECOMMENDATIONS: I would recommend repeat colonoscopy in 5 years. Any issues before that be seen at that time. The patient to follow up on pathology in 2 weeks. CC: [facility]- requested, unable to deliver Job ID: [id number] DocumentID: [id number] Dictated Date: 08/14/2021 08:45:14 Addictions Counselor Date: 08/14/2021 13:54:21 Dictated By: LEIA CABRERA DO
--- NOTE | 2021-08-14 14:51 | Anesthesia-General Post-Op ---
MAC Patient Condition Mental Status/LOC: Same as Preop Cardiovascular: Satisfactory Nausea/Vomiting: Absent Respiratory: Satisfactory Pain: Controlled Complications: Absent Post Op Complications Complications None Follow Up Care/Instructions Patient Instructions None needed. Anesthesiology Discharge Order Discharge Order Patient is doing well, no complaints, stable vital signs, no apparent adverse anesthesia problems. No complications reported per nursing. IAIN VOGEL CRNA Aug 14, 2021 14:51
== END 2021-08-14 09:19 | disposition home or self-care (01) ==
LOC: ENDO 06:57
PROVIDERS: ATTEND Surgery
DX: Z12.11 Encounter for screening for malignant neoplasm of colon (principal); D12.2 Benign neoplasm of ascending colon; K21.9 Gastro-esophageal reflux disease without esophagitis; E11.9 Type 2 diabetes mellitus without complications; E66.9 Obesity, unspecified; F32.A Depression, unspecified; G47.33 Obstructive sleep apnea (adult) (pediatric); J45.909 Unspecified asthma, uncomplicated; F41.9 Anxiety disorder, unspecified; Z79.4 Long term (current) use of insulin; Z79.899 Other long term (current) drug therapy; Z79.84 Long term (current) use of oral hypoglycemic drugs; Z68.37 Body mass index [BMI] 37.0-37.9, adult; Z87.891 Personal history of nicotine dependence; Z98.890 Other specified postprocedural states

== ENCOUNTER 2021-11-02 08:22 | Emergency (ER) | payer MEDICARE ==
[~2021-11-02] VITALS: Ht 172.7 cm; Wt 111.6 kg
[2021-11-02] MEDS ORDERED: TETANUS,DIPTH,PERTUSS P/F (BOOSTRIX) 0.5 ML VIAL IM ONE (08:45)
--- NOTE | 2021-11-02 08:47 | ED Integumentary General ---
General Chief Complaint: Laceration Stated Complaint: R THUMB LAC Source: patient Exam Limitations: no limitations History of Present Illness Date Seen by Provider: Nov 02, 2021 Time Seen by Provider: 08:30 Initial Comments Patient is a 51-year-old male who presents to the emergency department with a chief complaint of laceration to the right thumb. Patient was playing with a knife that he got for his birthday yesterday, attempting to close it and closed the knife onto the volar aspect of his right thumb. Denies any numbness to the tip of the thumb. Cannot recall his last tetanus shot. No other complaints of recent illness or injury. No allergies to medications, is a diabetic. Timing/Duration: just prior to arrival Severity: mild Location: hands (Right thumb) Possible Cause: other (Laceration) Associated Symptoms: denies symptoms Allergies and Home Medications Allergies Coded Allergies: No Known Drug Allergies (Unverified , 04/25/10) Patient Home Medication List Home Medication List Reviewed: Yes Albuterol Sulfate (Ventolin Hfa) 18 Gm Hfa.aer.ad, 2 PUFF IH Q4H PRN for SOA Prescribed by: SALINAS FOX on 09/28/20 1333 Celecoxib (Celecoxib) 200 Mg Capsule, 200 MG PO DAILY, (Reported) Entered as Reported by: SALINAS FOX on 09/28/20 1329 Clonazepam (Clonazepam) 1 Mg Tablet, 1 MG PO BID, (Reported) Entered as Reported by: SALINAS FOX on 09/28/20 1329 Deutetrabenazine (Austedo) 6 Mg Tablet, 1 TAB PO BID, (Reported) Entered as Reported by: SALINAS FOX on 09/28/20 1329 Ezetimibe (Zetia) 10 Mg Tablet, 10 MG PO HS, (Reported) Entered as Reported by: TAMERA STERN on 09/01/11 2259 Fluticasone Propionate (Flonase Allergy Relief) 9.9 Ml [place].susp, 1 SPRAY NS BID, (Reported) Entered as Reported by: SALINAS FOX on 09/28/20 1329 Fluticasone/Vilanterol (Breo Ellipta 100-25 Mcg INH) 1 Each Blst.w.dev, 1 PUFF INH DAILY, (Reported) Entered as Reported by: SALINAS FOX on 09/28/201328 Insulin Detemir (Levemir Flextouch) 100 Unit/1 Ml Insuln.pen, 0 SQ UD, (Reported) Entered as Reported by: SALINAS FOX on 09/28/201328 Lamotrigine (Lamotrigine ER) 200 Mg Tab.er.24, 200 MG PO BID, (Reported) Entered as Reported by: SALINAS FOX on 09/28/201328 Melatonin (Melatonin) 10 Mg Capsule, 10 MG PO HS, (Reported) Entered as Reported by: SALINAS FOX on 09/28/201328 Metformin HCl (Metformin HCl) 500 Mg Tablet, 500 MG PO BID, (Reported) Entered as Reported by: SALINAS FOX on 09/28/201328 Metoprolol Tartrate (Metoprolol Tartrate) 50 Mg Tablet, 50 MG PO BID, (Reported) Entered as Reported by: DHAVAL NOVAK on 01/09/15 1441 Montelukast Sodium (Montelukast Sodium) 10 Mg Tablet, 10 MG PO DAILY, (Reported) Entered as Reported by: SALINAS FOX on 09/28/201328 Paliperidone (Invega) 3 Mg Tab.er.24, 3 MG PO DAILY, (Reported) Entered as Reported by: SALINAS FOX on 09/28/201328 Paliperidone (Invega) 9 Mg Tablet.sa, 9 MG PO DAILY, (Reported) Entered as Reported by: SALINAS FOX on 09/28/201328 Pantoprazole Sodium (Pantoprazole Sodium) 40 Mg Tablet.dr, 1 TAB PO DAILY, (Reported) Entered as Reported by: SALINAS FOX on 09/28/201328 Simvastatin (Simvastatin) 20 Mg Tablet, 20 MG PO DAILY, (Reported) Entered as Reported by: SALINAS FOX on 09/28/201328 Tamsulosin HCl (Flomax) 0.4 Mg Cap, 2 CAP PO DAILY, (Reported) Entered as Reported by: SALINAS FOX on 09/28/201328 Trihexyphenidyl HCl (Trihexyphenidyl HCl) 2 Mg Tablet, 2 MG PO BID, (Reported) Entered as Reported by: SALINAS FOX on 2/4/21 1329 Review of Systems Review of Systems Constitutional: see HPI EENTM: no symptoms reported Respiratory: no symptoms reported Cardiovascular: no symptoms reported Gastrointestinal: no symptoms reported Genitourinary: no symptoms reported Musculoskeletal: no symptoms reported Skin: other (laceration) All Other Systems Reviewed Negative Unless Noted: Yes Past Uezffry-Mhdgcq-Dxgqsr Hx Patient Social History Tobacco Use?: No Smoking Status: Never a Smoker Smokeless Tobacco Frequency: Never a User Use of E-Cig and/or Vaping dev: No Use of E-Cig and/or Vaping Quentin: Never a User Substance use?: No Alcohol Use?: No Pt feels they are or have been: No Immunizations Up To Date Tetanus Booster (TDap): Unknown COVID19 Vaccine Snow Plow Operator: Kwaga[place] Seasonal Allergies Seasonal Allergies: Yes Past Medical History Surgeries: Yes (VASECTOMY,GANGLION CYST REMOVED, L ACL REPAIR, R ing hernia) Orthopedic, Vasectomy Respiratory: Yes (ASTHMA) Asthma, Sleep Apnea, COPD Currently Using CPAP: Yes Currently Using BIPAP: No Cardiac: Yes High Cholesterol, Hypertension Neurological: No Reproductive Disorders: No Genitourinary: Yes Benign Prostatic Hyperpl Gastrointestinal: Yes Gastroesophageal Reflux Musculoskeletal: No Endocrine: Yes Diabetes, Insulin dep HEENT: No Cancer: No Psychosocial: Yes Anxiety, Bipolar, Depression Integumentary: No Blood Disorders: No Family Medical History No Pertinent Family Hx Physical Exam Vital Signs Capillary Refill : Less Than 3 Seconds General Appearance: WD/WN, no apparent distress Cardiovascular: regular rate, rhythm Respiratory: no respiratory distress, no accessory muscle use Extremities: normal range of motion Neurologic/Psychiatric: alert, normal mood/affect, oriented x 3 Skin: normal color, warm/dry, other (2 cm laceration across the volar aspect of the right. Laceration extends into the subcutaneous tissues. Minimal active bleeding noted.) Procedures/Interventions Wound Location: Upper Extremities Other Wound Location right Volar thumb Wound's Depth, Shape: superficial, linear Wound Explored: clean Irrigated w/ Saline (ccs): 200 Betadine Prep?: No Anesthesia: 1% Lidocaine Volume Anesthetic (ccs): 1 Suture: Prolene Suture Size: 4-0 Number of Sutures: 4 Layer Closure?: 1 Sterile Dressing Applied?: Yes Progress/Results/Core Measures Results/Orders My Orders Orders - JOSE NICK MD Dipht,Pertuss(Acell),Tet Adult (Boostrix (11/02/21 08:45) Departure Impression Primary Impression: Laceration of right thumb Qualified Codes: S61.011A - Laceration without foreign body of right thumb without damage to nail, initial encounter Disposition: 01 HOME, SELF-CARE Condition: Stable Departure-Patient Inst. Decision time for Depature: 08:46 Referrals: [facility]/YARITZA (PCP/Family) Primary Care Physician Patient Instructions: Laceration Repair With Stitches (DC) Add. Discharge Instructions: Wash the area twice a day with soap and water. You can apply a little triple antibiotic ointment over the sutures for the next day or 2 twice a day. Keep a dressing over the area for the next 48 hours. Monitor your blood sugars closely as high blood sugars can cause poor wound healing. If you have any increased swelling over the thumb with redness, drainage of pus or increased pain please come back to the emergency room for reevaluation. The stitches will need to come out in 10 or 12 days, you can come back to the emergency department to have these removed. Copy Copies To 1: [facility]/JOSE FERNANDEZ MD Nov 02, 2021 08:47
[2021-11-02 09:20] VITALS: BP 152/99
== END 2021-11-02 09:20 | disposition home or self-care (01) ==
LOC: EDUNIT# 08:22 → ER 08:24
DX: S61.011A Laceration without foreign body of right thumb without damage to nail, initial encounter (principal); Z23 Encounter for immunization; W26.0XXA Contact with knife, initial encounter
CPT/HCPCS: 90715